=== PATIENT | male | born 1935 | race Caucasian/White ===

== ENCOUNTER 2016-10-30 17:45 | Emergency (ER) | payer MEDICARE, BC ==
[~2016-10-30] VITALS: Ht 170.2 cm; Wt 72.6 kg
[~2016-10-30 17:45] MED LIST: ATOR10TA PO; LOSA1TAB3 PO; METO50TA7 PO; PROP300T2 PO; WARF1TAB47
[2016-10-30] MEDS ORDERED: OXYMETAZOLINE HCL NASAL SPRAY 30 ML BOTTLE NS ONE ×2 (18:11→18:30)
[2016-10-30] MEDS ORDERED: LET SOLN TOPICAL 8 ML UDC TP ONE ×2 (18:36→19:00)
[2016-10-30 19:05] LABS: BASOPHILS # (AUTO) 0.2 /CMM (0.0-0.2); BASOPHILS % (AUTO) 2.9 % (0.0-2.0); DIFF TOTAL % 100 %; EOSINOPHILS % (AUTO) 0.6 % (0.0-6.0); HEMATOCRIT 42 % (39-51); HEMOGLOBIN 13.5 g/dL (13.5-17.5); LYMPHOCYTES # (AUTO) 2.3 /CMM (0.8-4.8); LYMPHOCYTES % (AUTO) 30.1 % (20.0-44.0); MEAN CORPUSCULAR HEMOGLOBIN 30 PG (26.0-33.0); MEAN CORPUSCULAR HGB CONC 32 g/dl (31.0-36.0); MEAN CORPUSCULAR VOLUME 93 fL (80-96); MONOCYTES # (AUTO) 0.8 /CMM (0.1-1.30); MONOCYTES % (AUTO) 10.4 % (2.0-12.0); NEUTROPHILS # (AUTO) 4.2 /CMM (1.8-8.9); PLATELET COUNT (AUTO) 72 /CMM (150-450); RED BLOOD CELL COUNT(AUTO) 4.52 MIL/uL (4.5-6.0); WHITE BLOOD COUNT (AUTO) 7.5 K/uL (4.3-11.0)
[2016-10-30 19:14] LABS: CALCIUM, SERUM 8.8 mg/dL (8.5-10.1); CREATININE 0.9 mg/dL (0.6-1.3); POTASSIUM 4.9 mmol/L (3.5-5.1)
[2016-10-30 19:18] LABS: INR 1.09 (0.87-1.13); PROTHROMBIN TIME 11.4 SECS (9.5-12.7)
[2016-10-30 20:11] VITALS: BP 139/64
[2016-10-30] MEDS ORDERED: AMOX/CLAVULANATE 875 MG TABLET PO ONE (20:30)
== END 2016-10-30 20:12 | disposition home or self-care (01) ==
LOC: ER 17:46 → MERGE 17:46 → ER 20:12
DX: R04.0 Epistaxis (principal); Z79.01 Long term (current) use of anticoagulants
CPT/HCPCS: 30901; 36415; 80048; 85025; 85730; 86850; 99284; A4606; A6402; A6403 ×2; Z7610

== ENCOUNTER 2016-10-31 07:50 | Emergency (ER) | payer MEDICARE, BC ==
[~2016-10-31] VITALS: Ht 170.2 cm; Wt 73.9 kg
[2016-10-31 07:50] VITALS: BP 124/99
== END 2016-10-31 08:53 | disposition home or self-care (01) ==
LOC: ER 07:52
DX: R04.0 Epistaxis (principal); I10 Essential (primary) hypertension; Z79.01 Long term (current) use of anticoagulants
CPT/HCPCS: 99281; A4606; Z7502; Z7610

== ENCOUNTER 2016-11-02 10:22 | Emergency (ER) | payer MEDICARE, BC ==
[~2016-11-02] VITALS: Ht 165.1 cm; Wt 77.1 kg
[2016-11-02 10:27] VITALS: BP 126/71
== END 2016-11-02 10:50 | disposition home or self-care (01) ==
LOC: ER 10:25
DX: R04.0 Epistaxis (principal); I10 Essential (primary) hypertension; Z79.01 Long term (current) use of anticoagulants
CPT/HCPCS: 99281; A4606; Z7502; Z7610

== ENCOUNTER 2016-11-16 10:25 | Emergency (ER) | payer MEDICARE, BC ==
[~2016-11-16] VITALS: Ht 170.2 cm; Wt 72.6 kg
[2016-11-16] MEDS ORDERED: OXYMETAZOLINE HCL NASAL SPRAY 30 ML BOTTLE NS ONE ×2 (10:47→11:00)
[2016-11-16 10:48] LABS: BASOPHILS % (AUTO) 0.4 % (0.0-2.0); DIFF TOTAL % 100 %; EOSINOPHILS % (AUTO) 0.3 % (0.0-6.0); HEMATOCRIT 38 % (39-51); HEMOGLOBIN 12.6 g/dL (13.5-17.5); LYMPHOCYTES # (AUTO) 1.4 /CMM (0.8-4.8); LYMPHOCYTES % (AUTO) 29.2 % (20.0-44.0); MEAN CORPUSCULAR HEMOGLOBIN 31 PG (26.0-33.0); MEAN CORPUSCULAR HGB CONC 33 g/dl (31.0-36.0); MEAN CORPUSCULAR VOLUME 93 fL (80-96); MONOCYTES # (AUTO) 0.4 /CMM (0.1-1.30); MONOCYTES % (AUTO) 8.4 % (2.0-12.0); NEUTROPHILS # (AUTO) 2.9 /CMM (1.8-8.9); NEUTROPHILS % (AUTO) 61.7 % (43.0-81.0); PLATELET COUNT (AUTO) 109 /CMM (150-450); RED BLOOD CELL COUNT(AUTO) 4.07 MIL/uL (4.5-6.0); WHITE BLOOD COUNT (AUTO) 4.7 K/uL (4.3-11.0)
[2016-11-16 10:56] LABS: CALCIUM, SERUM 8.7 mg/dL (8.5-10.1); CREATININE 0.9 mg/dL (0.6-1.3); POTASSIUM 3.9 mmol/L (3.5-5.1)
[2016-11-16 11:03] LABS: INR 1.82 (0.87-1.13); PROTHROMBIN TIME 19.1 SECS (9.5-12.7)
[2016-11-16 11:54] VITALS: BP 120/89
== END 2016-11-16 11:55 | disposition home or self-care (01) ==
LOC: ER 10:26
DX: R04.0 Epistaxis (principal); I10 Essential (primary) hypertension; Z79.01 Long term (current) use of anticoagulants
CPT/HCPCS: 36415; 80048; 85025; 85730; 99284; A4606; A6403; Z7610

== ENCOUNTER 2017-12-15 14:41 | Emergency (ER) | payer MEDICARE, BC ==
[~2017-12-15] VITALS: Ht 172.7 cm; Wt 74.8 kg
--- NOTE | 2017-12-15 14:50 | NUR ---
PADMARA 878 FROM HOME FOR ACTIVE EPISTAXIS X TODAY. ON COUMADIN, SOFT CLAMPS APPLIED TO NOSE. A/OX 4, BREATHING EVEN AND UNLABORED. NO SOB, NAD, VITALS STABLE. SAFETY AND COMFORT MEASURES IN PLACE. AWAITING MD ORDERS.
--- NOTE | 2017-12-15 15:12 | NUR ---
RETAIL CASHIER ASSOCIATE AT BEDSIDE FOR BLOOD DRAW.
[2017-12-15 15:20] LABS: BASOPHILS # (AUTO) 0.1 /CMM (0.0-0.2); BASOPHILS % (AUTO) 1.3 % (0.0-2.0); EOSINOPHILS % (AUTO) 0.3 % (0.0-6.0); HEMATOCRIT 39 % (39-51); LYMPHOCYTES # (AUTO) 1.9 /CMM (0.8-4.8); LYMPHOCYTES % (AUTO) 19.8 % (20.0-44.0); MEAN CORPUSCULAR HGB CONC 34 g/dl (31.0-36.0); MEAN CORPUSCULAR VOLUME 93 fL (80-96); MONOCYTES % (AUTO) 10.5 % (2.0-12.0); NEUTROPHILS # (AUTO) 6.8 /CMM (1.8-8.9); NEUTROPHILS % (AUTO) 68.1 % (43.0-81.0); PLATELET COUNT (AUTO) 75 /CMM (150-450); RDW COEFFICIENT OF VARIATION 13.3 (11.5-15.0); RED BLOOD CELL COUNT(AUTO) 4.19 MIL/uL (4.5-6.0); WHITE BLOOD COUNT (AUTO) 9.8 K/uL (4.3-11.0)
[2017-12-15 15:30] LABS: INR 2.17 (0.85-1.15)
--- NOTE | 2017-12-15 15:46 | NUR ---
DR. OCAMPO AT BEDSIDE, INSERTED RHINO ROCKET IN RIGHT NARE. PATIENT TOLERATED WELL, VSS. WILL MONITOR.
[2017-12-15 16:53] VITALS: BP 112/64
--- NOTE | 2017-12-15 16:55 | NUR ---
No bleeding noted since placed rhino rocket by . Patient discharged to home in stable condition. Written and verbal after care instructions given. Patient verbalizes understanding of instruction. Patient left via taxi.
== END 2017-12-15 16:54 | disposition home or self-care (01) ==
LOC: ER 14:42
DX: R04.0 Epistaxis (principal); E78.5 Hyperlipidemia, unspecified; I10 Essential (primary) hypertension; I48.91 Unspecified atrial fibrillation; Z79.01 Long term (current) use of anticoagulants; Z96.641 Presence of right artificial hip joint
CPT/HCPCS: 30901; 36415; 85025; 85730; 99284; A4217 ×2; A4606; A6403; Z7610

== ENCOUNTER 2017-12-16 11:36 | Emergency (ER) | payer MEDICARE, BC ==
[~2017-12-16] VITALS: Ht 167.6 cm; Wt 75.7 kg
[2017-12-16 11:36] VITALS: BP 127/73
== END 2017-12-16 12:08 | disposition home or self-care (01) ==
LOC: ER 11:37
DX: R04.0 Epistaxis (principal); I10 Essential (primary) hypertension; Z79.01 Long term (current) use of anticoagulants; Z96.641 Presence of right artificial hip joint
CPT/HCPCS: 99281; A4606; Z7502; Z7610

== ENCOUNTER 2017-12-17 07:55 | Emergency (ER) | payer MEDICARE, BC ==
[~2017-12-17] VITALS: Ht 170.2 cm; Wt 74.8 kg
[2017-12-17 08:12] VITALS: BP 130/85
== END 2017-12-17 08:21 | disposition home or self-care (01) ==
LOC: ER 07:57
DX: R04.0 Epistaxis (principal); I10 Essential (primary) hypertension; Z96.641 Presence of right artificial hip joint; Z79.01 Long term (current) use of anticoagulants
CPT/HCPCS: A4606; Z7502; Z7610

== ENCOUNTER → 2018-09-05 | Emergency (ER) | payer MEDICARE, BC ==
[~2018-09-05] VITALS: Ht 170.2 cm; Wt 72.6 kg
[~2018-09-05] MED LIST changes: +LORAZEPAM 1 MG TABLET ONE; +LORAZEPAM 1 MG TABLET PO ONE
--- NOTE | 2018-09-05 14:24 | NUR ---
PT WALKED INTO EMERGENCY ROOM FOR LEFT THUMB AND INDEX FINGER DISCOMFORT X 10 DAYS
[2018-09-05 14:57] LABS: CALCIUM, SERUM 9.2 mg/dL (8.5-10.1); CARBON DIOXIDE 27 mmol/L (21-32); CHLORIDE 101 mmol/L (98-107); GLUCOSE 126 mg/dL (74-106); POTASSIUM 4.5 mmol/L (3.5-5.1); SODIUM SERUM 138 mmol/L (136-145); UREA NITROGEN, BLOOD 25 mg/dL (7-18)
[2018-09-05 15:02] LABS: BASOPHILS # (AUTO) 0.1 /CMM (0.0-0.2); BASOPHILS % (AUTO) 0.8 % (0.0-2.0); EOSINOPHILS % (AUTO) 0.3 % (0.0-6.0); HEMATOCRIT 44 % (39-51); HEMOGLOBIN 14.8 g/dL (13.5-17.5); LYMPHOCYTES # (AUTO) 2.3 /CMM (0.8-4.8); LYMPHOCYTES % (AUTO) 33.2 % (20.0-44.0); MEAN CORPUSCULAR HGB CONC 34 g/dl (31.0-36.0); MEAN CORPUSCULAR VOLUME 93 fL (80-96); MONOCYTES # (AUTO) 0.7 /CMM (0.1-1.30); MONOCYTES % (AUTO) 10.1 % (2.0-12.0); NEUTROPHILS # (AUTO) 3.8 /CMM (1.8-8.9); NEUTROPHILS % (AUTO) 55.6 % (43.0-81.0); PLATELET COUNT (AUTO) 112 /CMM (150-450); RED BLOOD CELL COUNT(AUTO) 4.76 MIL/uL (4.5-6.0); WHITE BLOOD COUNT (AUTO) 6.9 K/uL (4.3-11.0)
[2018-09-05 15:51] VITALS: BP 136/87
--- NOTE | 2018-09-05 15:52 | NUR ---
PT DISCHARGED TO HOME PIV REMOVED WILL FOLOW UP WITH PMD
== END | disposition home or self-care (01) ==
LOC: ER 14:12
DX: F41.9 Anxiety disorder, unspecified (principal); I48.91 Unspecified atrial fibrillation; Z79.899 Other long term (current) drug therapy; Z79.01 Long term (current) use of anticoagulants
CPT/HCPCS: 36415; 71045; 80048; 84484; 85025; 93005; 99284; A4606; Z7610

== ENCOUNTER 2020-04-07 20:40 | Inpatient (IN) | payer MEDICARE, BC ==
[~2020-04-07] VITALS: Ht 167.6 cm; Wt 63.5 kg
[~2020-04-07 20:40] MED LIST changes: -LORAZEPAM 1 MG TABLET ONE; -LORAZEPAM 1 MG TABLET PO ONE; +WARF1TAB; -WARF1TAB47
--- NOTE | 2020-04-07 21:39 | NUR ---
PATIENT CAME FROM HOME BIB [facility] FOR LEFT KNEE PAIN. PATIENT DOES NOT KNOW WHEN THE KNEE PAIN OCCURRED, NOR DOES HE KNOW IF HE HAD HIT HIS HEAD. PATIENT IS AWARE OF THE RECENT PASSING OF HIS . PATIENT IS AAOX1. PATIENT IS ABLE TO SPEAK PROPERLY, BUT UNABLE TO RECALL ANY HISTORY OR DATE. BREATHING EVENLY AND UNLABORED ON ROOM AIR.
--- NOTE | 2020-04-07 21:44 | NUR ---
XRAY AT BEDSIDE
[2020-04-07 22:39] LABS: BASOPHILS # (AUTO) 0.1 /CMM (0.0-0.2); BASOPHILS % (AUTO) 0.8 % (0.0-2.0); EOSINOPHILS % (AUTO) 0.2 % (0.0-6.0); HEMATOCRIT 46 % (39-51); HEMOGLOBIN 14.7 g/dL (13.5-17.5); LYMPHOCYTES # (AUTO) 1.6 /CMM (0.8-4.8); LYMPHOCYTES % (AUTO) 14.5 % (20.0-44.0); MEAN CORPUSCULAR HGB CONC 32 g/dl (31.0-36.0); MEAN CORPUSCULAR VOLUME 94 fL (80-96); MONOCYTES # (AUTO) 2.2 /CMM (0.1-1.30); NEUTROPHILS # (AUTO) 6.9 /CMM (1.8-8.9); NEUTROPHILS % (AUTO) 64.5 % (43.0-81.0); PLATELET COUNT (AUTO) 83 /CMM (150-450); RED BLOOD CELL COUNT(AUTO) 4.85 MIL/uL (4.5-6.0); WHITE BLOOD COUNT (AUTO) 10.7 K/uL (4.3-11.0)
[2020-04-07 22:52] LABS: ALANINE AMINOTRANSFERASE 20 U/L (12-78); ALBUMIN 3.7 g/dL (3.4-5.0); ALCOHOL, BLOOD < 3 mg/dL (0-0); ALKALINE PHOSPHATASE 101 U/L (46-116); ASPARTATE AMINOTRANSFERASE 19 U/L (15-37); BILIRUBIN,DIRECT 0.3 mg/dL (0.0-0.2); BILIRUBIN,TOTAL 0.9 mg/dL (0.2-1.0); CALCIUM, SERUM 9.3 mg/dL (8.5-10.1); CARBON DIOXIDE 29 mmol/L (21-32); CHLORIDE 99 mmol/L (98-107); CREATININE 1.1 mg/dL (0.6-1.3); GLUCOSE 124 mg/dL (74-106); POTASSIUM 5.3 mmol/L (3.5-5.1); SODIUM SERUM 135 mmol/L (136-145); TOTAL PROTEIN, SERUM 7.1 g/dL (6.4-8.2); UREA NITROGEN, BLOOD 32 mg/dL (7-18)
--- NOTE | 2020-04-07 22:54 | NUR ---
urine collected and sent to lab.
[2020-04-07] MEDS ORDERED: ACETAMINOPHEN 325 MG TABLET PO ONE (23:00)
[2020-04-07 23:09] LABS: APPEARANCE,URINE Clear (CLEAR); BILIRUBIN,URINE Negative (NEGATIVE); BLOOD, URINE Small Ery/uL (NEGATIVE); COLOR,URINE Yellow (YELLOW); KETONES,URINE Negative (NEGATIVE); LEUKOCYTE ESTERASE ,URINE Negative (NEGATIVE); NITRITE, URINE Negative (NEGATIVE); PROTEIN,URINE 30 mg/dl (NEGATIVE); UGLUCOSE Negative (NEGATIVE); UROBILINOGEN,URINE 0.2 EU/dL (0.2)
[2020-04-07] MEDS ORDERED: ACETAMINOPHEN 325 MG TABLET ONE (23:10)
[2020-04-07 23:34] LABS: BACTERIA,URINE None seen /HPF (None Seen); SQUAMOUS EPITHELIAL CELL,UR Few /HPF (None Seen); WBC,URINE 0-2 /HPF (0-3)
[2020-04-07 23:35] LABS: ACETAMINOPHEN < 2 ug/ml (10-30); SALICYLATE 1.5 mg/dL (2.8-20.0)
[2020-04-07] MEDS ORDERED: LORAZEPAM 1 MG TABLET ONE (23:51)
[2020-04-08] VITALS (7 sets, daily range): BP systolic 112–156; BP diastolic 58–88
[2020-04-08] MEDS ORDERED: LORAZEPAM 1 MG TABLET PO ONE
--- NOTE | 2020-04-08 | NUR ---
JESSI CRISIS MILL STENCILER CALLED. VM LEFT.
--- NOTE | 2020-04-08 00:30 | NUR ---
JESSI CRISIS MECHANICAL OPERATOR CALLED. SONA LEFT
[2020-04-08 01:00] LABS: LYMPHOCYTES % (MANUAL) 15 % (16-48); MONOCYTES % (MANUAL) 19 % (0-11.0); NEUTROPHILS % (MANUAL) 66 (42-76)
[2020-04-08] MEDS ORDERED: ONDANSETRON HCL/PF 4 MG/2 ML VIAL IVP PRN (02:30)
[2020-04-08] MEDS ORDERED: IV NS 0.9% 1,000 ML IV PRN (02:30)
[2020-04-08] MEDS ORDERED: MAGNESIUM HYDROXIDE 30 ML UDC PO PRN ×2 (02:30→06:30)
[2020-04-08] MEDS ORDERED: IBUPROFEN 600 MG TABLET PO PRN (02:30)
[2020-04-08] MEDS ORDERED: ZOLPIDEM TARTRATE 5 MG TABLET PO PRN (02:30)
[2020-04-08] MEDS ORDERED: ACETAMINOPHEN 325 MG TABLET PO PRN ×2 (02:30→06:30)
--- NOTE | 2020-04-08 02:45 | NUR ---
PT INCREASINGLY CONFUSED. ATTEMPTING TO REDIRECT PATIENT.
[2020-04-08] MEDS ORDERED: diphenhydrAMINE HCL 50 MG CAPSULE ONE (02:53)
[2020-04-08] MEDS ORDERED: diphenhydrAMINE HCL 25 MG CAPSULE PO ONE (03:00)
--- NOTE | 2020-04-08 03:01 | NUR ---
CALLED JESSI, FROM CRISIS TEAM FOR PSYCH EVAL
--- NOTE | 2020-04-08 04:11 | NUR ---
JESSI, FROM CRISIS TEAM AT BEDSIDE FOR EVAL
--- NOTE | 2020-04-08 05:46 | NUR ---
REPORT GIVEN TO DEBBIE SIMONS FOR GEOFFREY.
--- NOTE | 2020-04-08 06:15 | NUR ---
GPS RN-NOTE:ADMISSION ADMITTED AN 79-YR OLD MALE, CAME FROM HOME. ADMITTED ON 5150 FOR GD. PER HOLD, PT CAME TO ER C/O KNEE PAIN INITIALLY. PT IS INCREASINGLY CONFUSED, DISORIENTED AND UNABLE TO SAFELY BE DISCHARGE HOME. PT. STATED "I LIVE IN MY APARTMENT WITH A SQUIRREL. PT IS DISORIENTED X3 AND IS NOT ABLE TO STATE A SAFE PLAN OF CARE IF HE IS DISCHARGE HOME AT THIS TIME. UPON FACE TO FACE ASSESSMENT, PT PRESENTS A/OX1-2, CONFUSED, FORGETFUL, ANXIOUS, EASILY GETS AGITATED. PT WAS ADVISED OF HIS HOLD. PT'S RIGHTS HANDBOOK AND A GUIDE TO PRESCRIPTION MEDICATIONS GIVEN. IN NO APPARENT DISTRESS NOTED. BELONGINGS WERE INVENTORIED AND CHECKED FOR CONTRABAND. PT. IS UNDER THE PSYCHIATRIC CARE OF DR. AYALA ORDERS OBTAINED, AND UNDER THE MEDICAL CARE OF DESIREE GALE. SKIN BODY ASSESSMENT DONE. PATIENT C/O LEFT KNEE PAIN BUT UNABLE TO SCALE PAIN LEVEL. BED LOCKED AND PLACED IN LOWEST POSITION TO MAINTAIN SAFETY. FALL PRECAUTIONS IMPLEMENTED. WILL CONTINUE TO MONITOR Q15 MINS. FOR SAFETY AND BEHAVIOR.
--- NOTE | 2020-04-08 06:16 | NUR ---
PATIENT IS TAKEN TO ASSIGNED ROOM.
[2020-04-08] MEDS ORDERED: MAG HYDROX/AL HYDROX/SIMETH 30 ML UDC PO PRN (06:30)
[2020-04-08] MEDS ORDERED: LORAZEPAM 0.5 MG TABLET PO PRN ×2 (06:30→12:30)
[2020-04-08] MEDS ORDERED: TEMAZEPAM 7.5 MG CAPSULE PO PRN (06:30)
[2020-04-08] MEDS ORDERED: BLOOD SUGAR DIAGNOSTIC 1 EACH STRIP IN ONE (06:30)
--- NOTE | 2020-04-08 06:46 | NUR ---
GPS RN NOTE PATIENT HAD 4800 DOLLARS TURK WITH HIM UPON ADMISSION. PATIENT SEEMS DISORGANIZED AT THIS TIME, STATED," I HAVE 400 DOLLARS, CAN YOU TAKE CARE OF IT." MONEY WAS COUNTED BY GAME FARM SUPERVISOR IN FRONT OF THE PATIENT & SEALED IT IN THE BAG, WITNESSED BY RN & MONEY BAG WAS PLACED IN NURSING OFFICE SAFE BY THE DEVELOPMENTAL MATHEMATICS INSTRUCTOR. PATIENT'S WALLET & KEYS WERE ALSO PUT IN THE SAME BAG. PATIENT MADE AWARE.
--- NOTE | 2020-04-08 07:25 | NUR ---
RN NOTE- PT W PAIN LEFT LEG. TYLENOL 650 MG GIVEN. ASSISTED PT TO BR TO VOID. WEAK UNSTEADY GAIT. PT CONSULT PENDING
[2020-04-08] MEDS: ENOXAPARIN SODIUM 40 MG/0.4 ML DISP.SYRIN SQ SCH (08:38)
--- NOTE | 2020-04-08 09:00 | NUR ---
PT IN ROOM ALERT CONFUSED DISORGANIZED DENIES ALL THOUGH TOO CONFUSED TO BE RELIABLE NEEDS ATTENDED UNSTEADY ON FEET ASSISTED TO BR LABS REVIEWED K HIGH, NA LOW IV FLUIDS ORDERED SKIN WOUND ON NOSE CONSULT ORDERED PO INTAKE GOOD CALM DIRECTABLE ATTEMPTED TO CONTACT FAMILY ON FACE SHEET BUT NO ONE ANSWERED AND NO VM SET UP
--- NOTE | 2020-04-08 09:15 | NUR ---
RN NOTE- SHELL MACHINE OPERATOR STARTED HEP LOCK RFA W 24 G . IV SITE PATENT. 1000 ML NS INFUSING AT THIS TIME 75/HR
--- NOTE | 2020-04-08 10:39 | NUR ---
RN NOTE- ANXIETY RESTLESSNESS ATIVAN 0.5 MG GIVEN
[2020-04-08] MEDS ORDERED: SODIUM POLYSTYRENE SULF. PWD 15 GM UDC PO ONE (11:00)
--- NOTE | 2020-04-08 11:27 | NUR ---
Social Work Initial Discharge Plan: Patient currently resides at [id number] [place] [address] Dr Hinojosa [address] [place] [id number]; ([phone]). This junior technical writer attempted to contact patient's Rhiannon ([phone]) but was unable to get a hold of. Patient might require a SNF. This junior technical writer will work with the MD and the family to help coordinate a proper discharge plan.
--- NOTE | 2020-04-08 11:27 | NUR ---
Social Work Family Contact: This script writer attempted to contact patient's Rhiannon ([phone]) and was unable to reach and did not have a voicemail set up.
[2020-04-08] MEDS ORDERED: OLANZAPINE 10 MG VIAL IM ONE ×3 (11:30→14:00)
--- NOTE | 2020-04-08 11:30 | NUR ---
RN NOTE- PT AGGRESSIVE SCREAMING COMBATIVE W DR AYALA PRESENT. ZYPREXA 5 MG IM ORDERED. COMPLIED
[2020-04-08] MEDS ORDERED: SODIUM POLYSTYRENE SULFONATE 15 G/60 ML BOTTLE PO ONE (12:00)
[2020-04-08] MEDS ORDERED: ONDANSETRON 4 MG TAB.RAPDIS PO PRN (13:00)
--- NOTE | 2020-04-08 14:00 | NUR ---
RN NOTE- IV CONTINUES TO INFUSE. PT AGGRESSIVE COMBATIVE YELLING BANGING ON CHAIR. DR AYALA ORDERED ZYPREXA 5 MG IM X ONE DOSE NOW . COMPLIED
[2020-04-08] MEDS: LORAZEPAM 1 MG TABLET PO PRN (14:58)
--- NOTE | 2020-04-08 15:01 | NUR ---
RN NOTE- RESTLESS PULLING AT IV YELLING CONINUES. ATIVAN 1 MG GIVEN
--- NOTE | 2020-04-08 15:25 | NUR ---
RN NOTE- IV INFILTRATED. IV FLUIDS STOPPED. COMPRESS PLACED ON RFA SITE. NEW HEP LOCK PLACED 24G LFA ONE TRY/ IV FLUIDS CONTINUE TO INFUSE AT 75ML/HR
[2020-04-08] MEDS: OLANZAPINE 5 MG TABLET PO SCH (17:00)
--- NOTE | 2020-04-08 18:35 | NUR ---
RN NOTE- CHANGING PT W SOLAR PROJECT COORDINATION SPECIALIST AND NOTED TESTICLES W ERYTHEMA AND SOME MACERATED SKIN. CLEANSED W SOAP AND WATER ZGUARD APPLIED. DIAPER IN PLACE. WOUND CARE CONSULT ORDERED. PHOTO TAKEN FOR CHART
--- NOTE | 2020-04-08 19:15 | NUR ---
GPS-RN NOTE: PATIENT IN BED ASLEEP. AROUSES EASILY. A/OX1-2, NO ACUTE DISTRESS NOTED. PATIENT REMAINS CONFUSED, FORGETFUL. CURRENTLY ON IV FLUIDS @75CC INFUSING WELL. IV SITE ON LEFT FOREARM GAUGE #24 PATENT AND INTACT. NO REDNESS, NO INFILTRATION NOTED. SAFETY PRECAUTIONS IMPLEMENTED. WILL CONTINUE TO MONITOR Q15MIN ROUNDS FOR SAFETY AND BEHAVIOR.
[2020-04-09] MEDS: Z GUARD REMEDY 2 OZ OINT TP PRN ×2 (00:52→18:16)
--- NOTE | 2020-04-09 07:20 | NUR ---
GPS-RN NOTE: PATIENT REFUSED AM LABS. DESPITE OF EDUCATION PROVIDED. PATIENT STILL REFUSED X3. ENDORSED TO DAY SHIFT NURSE FOR CONTINUITY OF CARE.
[2020-04-09] MEDS: ENOXAPARIN SODIUM 40 MG/0.4 ML DISP.SYRIN SQ SCH (09:00)
[2020-04-09] MEDS: OLANZAPINE 5 MG TABLET PO SCH ×3 (09:50→17:00)
[2020-04-09] MEDS: LORAZEPAM 1 MG TABLET PO PRN (09:50)
--- NOTE | 2020-04-09 09:50 | NUR ---
given ativan for agitation.
--- NOTE | 2020-04-09 10:39 | NUR ---
WOUND CARE CONSULT: PT PRESENTS WITH DRY LESION TO SIDE OF NOSE AND RED RASH TO PERINEUM AND SCROTAL AREA, PRESENT ON ADMISSION. DEFER TO PMD FOR LESION. RECOMMENDATIONS MADE FOR RASH AND SKIN PROTECTION. DISCUSSED WITH NURSING STAFF. PT IS AMBULATORY. WILL SEE PRN. DORSEY IN AGREEMENT WITH PLAN OF CARE. Addendum: 04/09/20 at 1041 by ZA YEE WNDNU Amended: Links added.
[2020-04-09] MEDS: HYDROCODONE/APAP 5/325MG 1 EACH TABLET PO PRN ×2 (11:43→22:59)
--- NOTE | 2020-04-09 11:52 | NUR ---
amb. to bathrm.c/o pain given norco.
--- NOTE | 2020-04-09 12:00 | NUR ---
dr. vences in and awre a little agitated earlier.
--- NOTE | 2020-04-09 12:07 | NUR ---
JL Coordination of Care: JL faxed patient's referral packet to Michaelle at [facility] (ph:[phone] [phone]) and awaiting for review and possible placement.
[2020-04-09] MEDS ORDERED: DIVALPROEX SODIUM 125 MG CAP.SPRINK PO SCH (13:00)
--- NOTE | 2020-04-09 13:00 | NUR ---
new zyprexa added.
--- NOTE | 2020-04-09 13:55 | NUR ---
JL Coordination of Care: Faxed patient's referral packet to [facility] ( ) attention to Faith admin coordinator for review and possible placement.
[2020-04-09] MEDS ORDERED: OLANZAPINE 5 MG TABLET PO SCH (14:00)
[2020-04-09] MEDS ORDERED: HALOPERIDOL LACTATE INJ 5 MG/ML VIAL IM STA (14:02)
[2020-04-09] MEDS ORDERED: LORAZEPAM INJ 2 MG/ML VIAL IM STA (14:02)
[2020-04-09] MEDS ORDERED: diphenhydrAMINE HCL 50 MG/ML VIAL IM STA (14:02)
--- NOTE | 2020-04-09 14:10 | NUR ---
a few prns given to pt. in attempt to quiet pt,but to no avail.
--- NOTE | 2020-04-09 14:15 | NUR ---
dr. vences called as pt. becoming unruly and yelling out. orders received.given haldol 5 mg,ativan 1mg and benadryl 25 mg im.
--- NOTE | 2020-04-09 15:30 | NUR ---
SLEEPING AT THIS TIME,APPEARS COMFORTABLE.
[2020-04-09 15:45] LABS: BASOPHILS % (AUTO) 0.5 % (0.0-2.0); EOSINOPHILS % (AUTO) 0.2 % (0.0-6.0); HEMATOCRIT 41 % (39-51); HEMOGLOBIN 13.1 g/dL (13.5-17.5); LYMPHOCYTES # (AUTO) 1.1 /CMM (0.8-4.8); LYMPHOCYTES % (AUTO) 13.5 % (20.0-44.0); MEAN CORPUSCULAR HGB CONC 32 g/dl (31.0-36.0); MEAN CORPUSCULAR VOLUME 94 fL (80-96); MONOCYTES # (AUTO) 1.7 /CMM (0.1-1.30); MONOCYTES % (AUTO) 21.8 % (2.0-12.0); NEUTROPHILS # (AUTO) 5.1 /CMM (1.8-8.9); PLATELET COUNT (AUTO) 82 /CMM (150-450); RED BLOOD CELL COUNT(AUTO) 4.36 MIL/uL (4.5-6.0); WHITE BLOOD COUNT (AUTO) 7.9 K/uL (4.3-11.0)
--- NOTE | 2020-04-09 15:51 | NUR ---
Initial Discharge Plan: Pt currently resides in his apartment alone located at [id number] [place] [address], [address], [place] [address]; ([phone]). Per pt, he would like to go back to his home. JL will work with the pt and the MD regarding appropriate discharge planning. JL will form a safe and proper discharge plan. Addendum: 04/09/20 at 1557 by SRINATH PARIKH INSERTED NOTE IN ERROR.
--- NOTE | 2020-04-09 15:54 | NUR ---
Friend Contact: JL called the pts neighbor, Juanita ([phone]), and discussed that the pt will need placement as it is not safe for him to live on his own.
[2020-04-09 16:00] VITALS: BP 106/54
[2020-04-09 16:01] LABS: CALCIUM, SERUM 8.7 mg/dL (8.5-10.1); CREATININE 0.9 mg/dL (0.6-1.3); MAGNESIUM 2.2 mg/dL (1.8-2.4); PHOSPHORUS 2.7 mg/dL (2.5-4.9); POTASSIUM 3.9 mmol/L (3.5-5.1)
[2020-04-09 16:47] LABS: LYMPHOCYTES % (MANUAL) 18 % (16-48); MONOCYTES % (MANUAL) 16 % (0-11.0); NEUTROPHILS % (MANUAL) 66 (42-76)
[2020-04-09] MEDS: CLOTRIMAZOLE 1% 15 GM TUBE TP SCH (18:16)
--- NOTE | 2020-04-09 18:40 | NUR ---
SLEEPING ALL AFTERNOON,MONICA.MEDS HELD DUE TO DROWSINESS.
[2020-04-09 19:55] VITALS: BP 110/60
[2020-04-10] MEDS: LORAZEPAM 1 MG TABLET PO PRN (07:44)
[2020-04-10] MEDS: OLANZAPINE 5 MG TABLET PO SCH (07:44)
[2020-04-10] MEDS: CLOTRIMAZOLE 1% 15 GM TUBE TP SCH ×2 (07:45→17:38)
[2020-04-10] MEDS: HYDROCODONE/APAP 5/325MG 1 EACH TABLET PO PRN (07:45)
[2020-04-10 08:00] VITALS: BP 158/89
--- NOTE | 2020-04-10 08:22 | NUR ---
yelling out,confused.medicated with routine meds,ativan and norco.
--- NOTE | 2020-04-10 08:45 | NUR ---
placed in marcos chair and in day rm.
[2020-04-10] MEDS: Z GUARD REMEDY 2 OZ OINT TP PRN (08:50)
[2020-04-10] MEDS: ENOXAPARIN SODIUM 40 MG/0.4 ML DISP.SYRIN SQ SCH (08:57)
--- NOTE | 2020-04-10 09:30 | NUR ---
lester olson informed of low platelet count.lovenox held.
--- NOTE | 2020-04-10 11:22 | NUR ---
dr. vences here and aware of pt's behavior.
[2020-04-10] MEDS ORDERED: OLANZAPINE 5 MG TABLET PO SCH (13:00)
[2020-04-10] MEDS: HALOPERIDOL 5 MG TABLET PO SCH ×2 (13:50→17:15)
[2020-04-10] MEDS: OLANZAPINE 2.5 MG TABLET PO SCH ×2 (13:50→17:15)
--- NOTE | 2020-04-10 15:06 | NUR ---
Group Note: SW encouraged the pt to attend group therapy on 04/10/20 on the topic of discharge planning. Pt appeared to be verbally aggressive and has required multiple IM shots and is therefore not appropriate for group at this time.
--- NOTE | 2020-04-10 15:22 | NUR ---
IN DINING RM. IN DIANE CHAIR,VERY GROGGY AFTER NEW MEDS.
[2020-04-10 16:00] VITALS: BP 121/57
--- NOTE | 2020-04-10 17:04 | NUR ---
RECEIVED CALL FROM [facility]. PT. POSITIVE FOR MRSA RT., NARES.BACTROBAN ORDERED.
--- NOTE | 2020-04-10 19:16 | NUR ---
RESP. TX. HERE TO DO EKG.DEPT. CALLED SEVERAL TIMES ABOUT EKG ORDER.WILL ENDORSE INFO TO EVE. SIMONS.
[2020-04-10 19:42] VITALS: BP 131/92
--- NOTE | 2020-04-10 20:54 | NUR ---
GPS RN NOTE: RECEIVED INSTRUCTION FROM DR AYALA AT 2034 TO DC ZYPREXA 2.5MG TID AND HALDOL 2.5MG TID. BOTH MEDICATIONS HAVE BEEN DISCONTINUED INSTRUCTED.
[2020-04-10] MEDS ORDERED: MUPIROCIN OINT 2% 22 GM TUBE NS SCH (21:00)
--- NOTE | 2020-04-10 23:16 | NUR ---
GPS RN NOTE; AT 2230 PT WAS DISCHARGED FROM GPS AND TRANSFERRED TO TELE PER ALONSO LESLIE'S ORDER, THIS IS BECAUSE PT EKG SHOWED A-FIB. AN INITIAL EKG RESULT SHOWED A-FIB, A SECOND EKG WAS ORDERED BUT ALSO CAME OUT WITH THE SAME RESULT SO ALONSO LESLIE ASKED FOR THE PT TO BE TRANSFERRED TO TELE. PT WAS A/O X1-2, DISORGANIZED, RESTLESS, PARANOID, AND EASILY IRRITABLE. V/S AT THE TIME OF TRANSFER WAS BP120/70, P116, T98.1, R19, O2 97%. PT PSYCH MEDS WERE DISCONTINUED ORDERED BY DR AYALA BEFORE TRANSFER AND MEDICAL MEDICATIONS CONTINUED ORDERED BY ALONSO LESLIE. DR AYALA ORDERED THAT PT HOLD SHOULD BE CONTINUED. ALL PT BELONGINGS FROM HIS ROOM AND SAFE, 5250 HOLD WERE TRANSFERRED WITH PT AND RECEIVED BY TELE STAFF.
--- NOTE | 2020-04-11 10:46 | NUR ---
Friend Contact: JL spoke with the pts neighbor, Juanita ([phone]) and discussed discharge planning and informed of the placement set for the patient upon discharge to [facility] in [place]. Juanita was pleased to hear about this and was thankful. Juanita also stated that she will do laundry for the patient and provide clothing for him when he arrives at [facility].
== END 2020-04-10 22:17 | disposition short-term general hospital (02) | DRG 885 ==
LOC: ER 20:41 → GPS 04-08 05:32
PROVIDERS: ADMIT Psychiatry & Neurology Psychosomatic Medicine
DX: F29 Unspecified psychosis not due to a substance or known physiological condition (principal); F01.50 Vascular dementia, unspecified severity, without behavioral disturbance, psychotic disturbance, mood disturbance, and anxiety; I10 Essential (primary) hypertension; M17.12 Unilateral primary osteoarthritis, left knee; Z79.01 Long term (current) use of anticoagulants; L98.8 Other specified disorders of the skin and subcutaneous tissue; R22.9 Localized swelling, mass and lump, unspecified; D69.6 Thrombocytopenia, unspecified; E87.5 Hyperkalemia; J34.0 Abscess, furuncle and carbuncle of nose
CPT/HCPCS: 36415; 70450-TC; 73564-TC; 80048-TC; 80061-TC; 80076-TC; 80305; 81000-TC; 82962-TC; 83735-TC; 84100-TC; 85025-TC; 87081-TC; 97116-TC; 97530-TC; A6253; G0480; J1200; J1630; J1650; J2060; J2405; J3490; J7030; Q0163

== ENCOUNTER 2020-04-10 22:43 | Inpatient (IN) | payer MEDICARE, BC ==
[~2020-04-10] VITALS: Ht 172.7 cm; Wt 77.1 kg
[2020-04-10 10:30] VITALS: BP 117/98
--- NOTE | 2020-04-10 22:30 | NUR ---
DIRECTOR OF CATERINGCRITICAL CARE NURSE NOTE: Received report from GPS RN, Rekha. Received patient in the unit at 2230. Patient breathing well on room air. No signs of distress. No SOB. Breathing equal and unlabored. Noted mass on nose. Patient has no IV access. Inserted IV access 22g on right AC. Noted elevated heart rate. Patient on 1:1. Safety precaution in place. Bed in lowest position, bed are locked, side rails x2 are up, and call light is within reach. Will continue care of plan.
[2020-04-10] MEDS ORDERED: ZOLPIDEM TARTRATE 5 MG TABLET PO PRN (23:00)
[2020-04-10] MEDS ORDERED: MAGNESIUM HYDROXIDE 30 ML UDC PO PRN (23:00)
[2020-04-10] MEDS ORDERED: MAG HYDROX/AL HYDROX/SIMETH 30 ML UDC PO PRN (23:00)
[2020-04-10] MEDS ORDERED: DILTIAZEM HCL 25 MG IV IV ONE (23:00)
[2020-04-10] MEDS ORDERED: HYDROCODONE/APAP 5/325MG 1 EACH TABLET PO PRN (23:00)
[2020-04-10] MEDS ORDERED: ACETAMINOPHEN 325 MG TABLET PO PRN (23:00)
[2020-04-10] MEDS ORDERED: ONDANSETRON HCL/PF 4 MG/2 ML VIAL IVP PRN (23:00)
[2020-04-10] MEDS ORDERED: Z GUARD REMEDY 2 OZ OINT TP PRN (23:00)
[2020-04-10 23:57] LABS: CALCIUM, SERUM 8.8 mg/dL (8.5-10.1); CREATININE 0.9 mg/dL (0.6-1.3); POTASSIUM 4.2 mmol/L (3.5-5.1)
[2020-04-11 00:11] LABS: BASOPHILS % (AUTO) 0.4 % (0.0-2.0); BILIRUBIN,TOTAL 1.3 mg/dL (0.2-1.0); EOSINOPHILS % (AUTO) 0.1 % (0.0-6.0); HEMATOCRIT 44 % (39-51); HEMOGLOBIN 14.3 g/dL (13.5-17.5); LYMPHOCYTES # (AUTO) 0.8 /CMM (0.8-4.8); LYMPHOCYTES % (AUTO) 8.2 % (20.0-44.0); MEAN CORPUSCULAR HGB CONC 33 g/dl (31.0-36.0); MEAN CORPUSCULAR VOLUME 93 fL (80-96); MONOCYTES # (AUTO) 2.5 /CMM (0.1-1.30); MONOCYTES % (AUTO) 26.8 % (2.0-12.0); NEUTROPHILS % (AUTO) 64.5 % (43.0-81.0); PLATELET COUNT (AUTO) 97 /CMM (150-450); RED BLOOD CELL COUNT(AUTO) 4.74 MIL/uL (4.5-6.0); TOTAL PROTEIN, SERUM 6.5 g/dL (6.4-8.2); WHITE BLOOD COUNT (AUTO) 9.3 K/uL (4.3-11.0)
[2020-04-11 00:42] LABS: LYMPHOCYTES % (MANUAL) 14 % (16-48); MONOCYTES % (MANUAL) 21 % (0-11.0); NEUTROPHILS % (MANUAL) 65 (42-76)
--- NOTE | 2020-04-11 01:27 | NUR ---
PARK KEEPER NOTE: Patient requested sleeping medication but refused when I was about to administer it.
--- NOTE | 2020-04-11 01:34 | NUR ---
ELECTRONICS TECHNOLOGY INSTRUCTOR NOTE: Patient heart rate fluctuating from 120-140 bpm. Notified Amy DORSEY. ordered Cardizem 10mg IV x1. Read back order and carried out.
[2020-04-11 01:56] VITALS: BP 131/83
[2020-04-11] MEDS ORDERED: DILTIAZEM HCL 25 MG IV IV ONE (02:00)
--- NOTE | 2020-04-11 02:01 | NUR ---
SUPERVISOR FISHING NOTE: Patient BP 131/83, HR 125. Notified MD. Administered Cardizem per MD order. Will continue to monitor.
--- NOTE | 2020-04-11 06:30 | NUR ---
MS RN CLOSING NOTE: Patient in bed awake and alert. He shows signs of confusion. Patient breathing well on room air. No signs of distress. No SOB. Breathing equal and unlabored. Patient denies pain or discomfort. Patient on 1:1. Safety precaution in place. Bed in lowest position, bed are locked, side rails x2 are up, and call light is within reach. Will endorse to morning nurse.
[2020-04-11 06:32] LABS: BASOPHILS % (AUTO) 0.4 % (0.0-2.0); EOSINOPHILS % (AUTO) 0.1 % (0.0-6.0); HEMATOCRIT 42 % (39-51); HEMOGLOBIN 13.9 g/dL (13.5-17.5); LYMPHOCYTES # (AUTO) 1.4 /CMM (0.8-4.8); MEAN CORPUSCULAR HGB CONC 33 g/dl (31.0-36.0); MEAN CORPUSCULAR VOLUME 93 fL (80-96); MONOCYTES # (AUTO) 2.2 /CMM (0.1-1.30); MONOCYTES % (AUTO) 24.4 % (2.0-12.0); NEUTROPHILS # (AUTO) 5.5 /CMM (1.8-8.9); NEUTROPHILS % (AUTO) 60.1 % (43.0-81.0); PLATELET COUNT (AUTO) 92 /CMM (150-450); RED BLOOD CELL COUNT(AUTO) 4.57 MIL/uL (4.5-6.0); WHITE BLOOD COUNT (AUTO) 9.2 K/uL (4.3-11.0)
[2020-04-11 06:35] LABS: CALCIUM, SERUM 8.9 mg/dL (8.5-10.1); CREATININE 0.9 mg/dL (0.6-1.3); MAGNESIUM 1.8 mg/dL (1.8-2.4); PHOSPHORUS 2.4 mg/dL (2.5-4.9)
--- NOTE | 2020-04-11 07:49 | NUR ---
RN NOTES RECEIVED PATIENT ON BED RESTING COMFORTABLY IN MODERATE HIGH BACK REST, A/O X1. SITTER AT BEDSIDE, IV ACCESS ON RAC #22, PATENT AND INTACT, SAFETY MEASURES IN PLACE, BED IN LOWEST LOCKED POSITION WITH SIDE RAILS UP X2, CALL LIGHT WITHIN REACH. WILL CONTINUE TO MONITOR.
[2020-04-11 08:00] VITALS: BP 120/69
[2020-04-11] MEDS: ASPIRIN 81 MG TAB.CHEW PO SCH (08:18)
[2020-04-11 08:29] LABS: LYMPHOCYTES % (MANUAL) 14 % (16-48); MONOCYTES % (MANUAL) 17 % (0-11.0); NEUTROPHILS % (MANUAL) 69 (42-76)
[2020-04-11] MEDS: DIGOXIN INJ 0.5 MG/2 ML AMPUL IV SCH ×2 (11:42→17:38)
[2020-04-11] MEDS: DILTIAZEM HCL CD 240 MG PO SCH (11:43)
[2020-04-11 12:00] VITALS: BP 128/72
[2020-04-11] MEDS: busPIRone 5 MG TABLET PO SCH ×2 (13:13→16:18)
[2020-04-11] MEDS: GABAPENTIN 100 MG CAPSULE PO SCH ×2 (13:13→16:18)
[2020-04-11 15:51] VITALS: BP 134/81
[2020-04-11] MEDS ORDERED: K PHOS NEUTRAL 250 MG TABLET PO ONE (16:30)
--- NOTE | 2020-04-11 18:42 | NUR ---
RN NOTES PATIENT ON BED RESTING COMFORTABLY IN MODERATE HIGH BACK REST, A/O X1. SITTER AT BEDSIDE, IV ACCESS ON RAC #22, PATENT AND INTACT, REFUSED TELE MONITOR MD JOEL MADE AWARE. SAFETY MEASURES IN PLACE, BED IN LOWEST LOCKED POSITION WITH SIDE RAILS UP X2, CALL LIGHT WITHIN REACH. WILL ENDORSE TO DATA ENTRY OPERATOR NURSE FOR GEOFFREY.
--- NOTE | 2020-04-11 19:05 | NUR ---
MS RN NOTES RECEIVED PT IN BED RESTING WITH SITTER AT BEDSIDE. PT A/O X1. RESPIRATIONS EVEN AND UNLABORED WITH NO S/S OF ACUTE DISTRESS OR SOB NOTED. IV ACCESS ON RAC #22. PT NOTED ON TELE MONITOR SHOWING AFIB. NO COMPLAINTS OF PAIN AT THIS TIME. SAFETY MEASURES IN PLACE, BED IN LOWEST LOCKED POSITION WITH SIDE RAILS UP X2. CALL LIGHT WITHIN REACH. WILL CONTINUE TO MONITOR.
[2020-04-11 20:28] VITALS: BP 119/68
[2020-04-12] VITALS (7 sets, daily range): BP systolic 106–152; BP diastolic 56–89
[2020-04-12] MEDS: DIGOXIN INJ 0.5 MG/2 ML AMPUL IV SCH (00:33)
[2020-04-12 06:42] LABS: CREATININE 0.8 mg/dL (0.6-1.3); MAGNESIUM 2.2 mg/dL (1.8-2.4)
--- NOTE | 2020-04-12 06:54 | NUR ---
MS RN NOTES RECEIVED PT IN BED RESTING WITH SITTER AT BEDSIDE. PT A/O X1. RESPIRATIONS EVEN AND UNLABORED WITH NO S/S OF ACUTE DISTRESS OR SOB NOTED THROUGHOUT SHIFT. IV ACCESS ON RHAND #22 PATENT AND INTACT AND SL. PT KEPT CLEAN, DRY, AND COMFORTABLE. PT NOTED ON TELE MONITOR SHOWING AFIB. NO COMPLAINTS OF PAIN AT THIS TIME. SAFETY MEASURES IN PLACE, BED IN LOWEST LOCKED POSITION WITH SIDE RAILS UP X2. CALL LIGHT WITHIN REACH. WILL ENDORSE TO ONCOMING NURSE FOR GEOFFREY.
--- NOTE | 2020-04-12 07:30 | NUR ---
MS/RN NOTE THE PATIENT IS RECEIVED IN BED. THE PATIENT IS ALERT AND ORIENTED TO SELF. DENIES PAIN. IN ROOM AIR AND DENIES SOB. RESPIRATION REGULAR AND UNLABORED. THE PATIENT IS IN NO APPARENT DISTRESS. RIGHT HAND G 22 PATENT AND SALINE LOCKED. SITTER AT THE BEDSIDE. BED LOW AND LOCKED. SIDE RAILS UP X3. WILL CONTINUE TO MONITOR.
[2020-04-12 08:18] LABS: BASOPHILS % (AUTO) 0.4 % (0.0-2.0); EOSINOPHILS % (AUTO) 0.4 % (0.0-6.0); HEMATOCRIT 41 % (39-51); HEMOGLOBIN 13.2 g/dL (13.5-17.5); LYMPHOCYTES # (AUTO) 1.9 /CMM (0.8-4.8); LYMPHOCYTES % (AUTO) 17.4 % (20.0-44.0); MEAN CORPUSCULAR HGB CONC 32 g/dl (31.0-36.0); MEAN CORPUSCULAR VOLUME 94 fL (80-96); MONOCYTES # (AUTO) 2.1 /CMM (0.1-1.30); MONOCYTES % (AUTO) 19.3 % (2.0-12.0); NEUTROPHILS # (AUTO) 6.9 /CMM (1.8-8.9); NEUTROPHILS % (AUTO) 62.5 % (43.0-81.0); PLATELET COUNT (AUTO) 96 /CMM (150-450); RED BLOOD CELL COUNT(AUTO) 4.37 MIL/uL (4.5-6.0)
[2020-04-12 09:32] LABS: BAND % (MANUAL) 2 % (0.0-5.0); LYMPHOCYTES % (MANUAL) 17 % (16-48); MONOCYTES % (MANUAL) 23 % (0-11.0); NEUTROPHILS % (MANUAL) 58 (42-76)
[2020-04-12] MEDS: GABAPENTIN 100 MG CAPSULE PO SCH ×3 (09:37→17:29)
[2020-04-12] MEDS: ASPIRIN 81 MG TAB.CHEW PO SCH (09:37)
[2020-04-12] MEDS: DILTIAZEM HCL CD 240 MG PO SCH (09:37)
[2020-04-12] MEDS: busPIRone 5 MG TABLET PO SCH ×3 (09:37→17:29)
[2020-04-12] MEDS ORDERED: DIGOXIN 0.25 MG TABLET PO SCH (13:00)
--- NOTE | 2020-04-12 18:55 | NUR ---
MS/RN NOTE PATIENT ALERT AND ORIENTED X2. DENIES PAIN. RESPIRATION REGULAR AND UNLABORED. IN ROOM AIR AND SATURATION IS AT 95%. PATIENT IN NO APPARENT DISTRESS. DISCHARGE EDUCATION PROVIDED TO THE PATIENT AND RECEIVING NURSE MICHI. OV LINE REMOVED WITH NO BLEEDING AT THE SITE. PATIENT REFUSED SKIN ASSESSMENT PICTURES TO BETAKEN DESPITE EXPLAINING RISKS AND BENEFITS MULTIPLE TIMES. PATIENT TAKE TO THE GPS VIA WHEELCHAIR AND IN STABLE CONDITION.
[2020-04-12] MEDS ORDERED: DIGO250T PO (21:29)
[2020-04-12] MEDS ORDERED: ASPI-1152 PO (21:29)
[2020-04-12] MEDS ORDERED: DILT240C88 PO (21:29)
[2020-04-12] MEDS ORDERED: GABA-532 PO (21:30)
[2020-04-12] MEDS ORDERED: HYDR-4384 PO (21:32)
[2020-04-12] MEDS ORDERED: ONDA4TAB5 PO (21:32)
[2020-04-12] MEDS ORDERED: ZOLP5TAB2 PO (21:33)
[2020-04-12] MEDS ORDERED: BUSP5TAB3 PO (21:35)
== END 2020-04-12 18:09 | DRG 309 ==
LOC: MED 22:43 → TELE 22:59 → MED 04-12 07:49
PROVIDERS: ADMIT Nurse Practitioner Acute Care; ATTEND Student in an Organized Health Care Education/Training Program
DX: I48.91 Unspecified atrial fibrillation (principal); E44.0 Moderate protein-calorie malnutrition; L98.498 Non-pressure chronic ulcer of skin of other sites with other specified severity; M17.12 Unilateral primary osteoarthritis, left knee; F29 Unspecified psychosis not due to a substance or known physiological condition; I10 Essential (primary) hypertension; D69.6 Thrombocytopenia, unspecified; E88.09 Other disorders of plasma-protein metabolism, not elsewhere classified; Z68.25 Body mass index [BMI] 25.0-25.9, adult; L98.8 Other specified disorders of the skin and subcutaneous tissue; F01.50 Vascular dementia, unspecified severity, without behavioral disturbance, psychotic disturbance, mood disturbance, and anxiety
CPT/HCPCS: 36415; 71045-TC; 80048-TC; 80053-TC; 80061-TC; 83605-TC; 83735-TC; 84100-TC; 84484-TC; 85025-TC; G0378; J1160; J3490

== ENCOUNTER 2020-04-12 20:20 | Inpatient (IN) | payer MEDICARE, BC ==
[~2020-04-12] VITALS: Ht 170.2 cm; Wt 77.1 kg
--- NOTE | 2020-04-12 20:22 | NUR ---
GPS ADMISSION NOTE: RECEIVED PT. FROM [facility]. ARRIVED ON THIS UNIT AT 2021 WITH STAFF. ADMITTED ON A 5250 HOLD FOR GD. PER HOLD, PT. WITH PSYCHOSIS, DISORGANIZATION, AGITATED AND REFUSING CARE. THE DOCUMENTATION IN HOLD APPEARS TO REFLECT THE PRESENTATION OF PATIENT. UPON FACE TO FACE ASSESSMENT, PT. NOTED DISHEVELED, DISORGANIZED, CONFUSED, DISORIENTED AND NEEDS REDIRECTION. PT. IS CURRENTLY LYING DOWN IN BED. NO C/O OF PAIN OR DISTRESS. BREATHING UNLABORED WITH EQUAL RISE AND FALL OF CHEST. A/O X1 ON ROOM AIR. NO NEEDS AT THIS TIME. DENIES SI/HI. REFUSED TO SIGN PAPERWORK. PT. ADVISED ON HOLD. UNDER PSYCH CARE OF DR. AYALA AND MEDICAL CARE OF GRICELDA. BELONGINGS WERE INVENTORIED AND CHECKED FOR CONTRABAND. SKIN ASSESSMENT COMPLETED. EDUCATED BOBBIN INSPECTOR FREEMAN. SIDE RAILS UP X2 FOR SAFETY, BED LOCKED, LOW. WILL CONTINUE TO MONITOR FOR SAFETY AND BEHAVIOR.
[2020-04-12] MEDS ORDERED: ONDANSETRON 4 MG TAB.RAPDIS PO PRN (20:30)
[2020-04-12] MEDS ORDERED: ACETAMINOPHEN 325 MG TABLET PO PRN (21:00)
[2020-04-12] MEDS ORDERED: MAG HYDROX/AL HYDROX/SIMETH 30 ML UDC PO PRN (21:00)
[2020-04-12] MEDS ORDERED: MAGNESIUM HYDROXIDE 30 ML UDC PO PRN (21:00)
[2020-04-12 21:13] VITALS: BP 141/82
[2020-04-12] MEDS ORDERED: DIGO250T PO (21:29)
[2020-04-12] MEDS ORDERED: DILT240C88 PO (21:29)
[2020-04-12] MEDS ORDERED: ASPI-1420 PO (21:29)
[2020-04-12] MEDS ORDERED: GABA-532 PO (21:30)
[2020-04-12] MEDS ORDERED: HYDR-4384 PO (21:32)
[2020-04-12] MEDS ORDERED: ONDA4TAB5 PO (21:32)
[2020-04-12] MEDS ORDERED: ZOLP5TAB2 PO (21:33)
[2020-04-12] MEDS ORDERED: BUSP5TAB3 PO (21:35)
[2020-04-12] MEDS ORDERED: BLOOD SUGAR DIAGNOSTIC 1 EACH STRIP IN ONE (22:00)
[2020-04-12 23:15] VITALS: BP 125/58
[2020-04-13] MEDS: LORAZEPAM 0.5 MG TABLET PO PRN ×2 (01:09→19:46)
--- NOTE | 2020-04-13 01:09 | NUR ---
GPS RN NOTE: ANXIETY PT. APPEARS ANXIOUS. ADMINISTERED ATIVAN 0.5 MG PO PRN ORDERED. WILL CONTINUE TO MONITOR FOR SAFETY AND BEHAVIOR
[2020-04-13] MEDS: TEMAZEPAM 7.5 MG CAPSULE PO PRN ×2 (02:40→22:45)
--- NOTE | 2020-04-13 02:40 | NUR ---
GPS RN NOTE: INSOMNIA PT. UNABLE TO SLEEP. ADMINISTERED RESTORIL 7.5 MG PO PRN ORDERED. WILL CONTINUE TO MONITOR FOR SAFETY AND BEHAVIOR
[2020-04-13 08:00] VITALS: BP 117/73
[2020-04-13] MEDS: GABAPENTIN 100 MG CAPSULE PO SCH ×3 (09:06→16:12)
[2020-04-13] MEDS: MUPIROCIN OINT 2% 22 GM TUBE NS SCH ×2 (09:07→21:22)
[2020-04-13] MEDS: ASPIRIN EC 81 MG TABLET.DR PO SCH (09:07)
[2020-04-13] MEDS: DILTIAZEM HCL CD 240 MG PO SCH (12:09)
[2020-04-13] MEDS: DIGOXIN 0.125 MG TABLET PO SCH (12:10)
[2020-04-13] MEDS ORDERED: DIGOXIN 0.125 MG TABLET PO SCH (13:00)
[2020-04-13] MEDS ORDERED: DIGOXIN ELIX UDC 0.25 MG/5 ML UDC PO SCH (13:00)
[2020-04-13 16:00] VITALS: BP 153/78
[2020-04-13] MEDS: busPIRone 5 MG TABLET PO SCH (16:12)
[2020-04-13] MEDS: OLANZAPINE 2.5 MG TABLET PO SCH (16:12)
--- NOTE | 2020-04-13 19:52 | NUR ---
GPS-RN NOTE: ANXIETY PATIENT NOTED TO BE ANXIOUS, RESTLESS, SCREAMING AND YELLING. ADMINISTERED ATIVAN 0.5 MG PO ORDERED. WILL CONTINUE TO MONITOR FOR SAFETY AND BEHAVIOR.
[2020-04-13 21:01] VITALS: BP 120/97
--- NOTE | 2020-04-13 22:46 | NUR ---
GPS-RN NOTE: INSOMNIA PATIENT C/O INABILITY TO SLEEP. ADMINISTERED RESTORIL 7.5MG PO ORDERED. WILL CONTINUE TO MONITOR FOR SAFETY.
[2020-04-14 07:32] LABS: BASOPHILS % (AUTO) 0.5 % (0.0-2.0); EOSINOPHILS % (AUTO) 0.4 % (0.0-6.0); HEMATOCRIT 40 % (39-51); HEMOGLOBIN 12.9 g/dL (13.5-17.5); LYMPHOCYTES % (AUTO) 15.3 % (20.0-44.0); MEAN CORPUSCULAR HGB CONC 32 g/dl (31.0-36.0); MEAN CORPUSCULAR VOLUME 92 fL (80-96); MONOCYTES # (AUTO) 0.8 /CMM (0.1-1.30); NEUTROPHILS # (AUTO) 4.6 /CMM (1.8-8.9); NEUTROPHILS % (AUTO) 71.8 % (43.0-81.0); PLATELET COUNT (AUTO) 116 /CMM (150-450); RED BLOOD CELL COUNT(AUTO) 4.37 MIL/uL (4.5-6.0); WHITE BLOOD COUNT (AUTO) 6.4 K/uL (4.3-11.0)
[2020-04-14 07:37] LABS: CALCIUM, SERUM 8.9 mg/dL (8.5-10.1); CREATININE 0.7 mg/dL (0.6-1.3); POTASSIUM 3.9 mmol/L (3.5-5.1)
[2020-04-14 08:00] VITALS: BP 114/81
[2020-04-14 08:17] LABS: DIGOXIN 0.88 ng/mL (0.90-2.00)
[2020-04-14] MEDS: GABAPENTIN 100 MG CAPSULE PO SCH ×3 (08:55→16:40)
[2020-04-14] MEDS: OLANZAPINE 2.5 MG TABLET PO SCH ×2 (08:55→16:41)
[2020-04-14] MEDS: ASPIRIN EC 81 MG TABLET.DR PO SCH (08:56)
[2020-04-14] MEDS: busPIRone 5 MG TABLET PO SCH ×3 (08:56→16:41)
[2020-04-14] MEDS: DILTIAZEM HCL CD 240 MG PO SCH (08:56)
--- NOTE | 2020-04-14 09:00 | NUR ---
RN OPENING NOTE RECEIVED PATIENT IN BED AWAKE, ALERT AND ORIENTED TO SELF, NO ACUTE DISTRESS NOTED.MONGOLIAN SPEAKER, DENIES PAIN, PATIENT REMAINS CONFUSED, LABILE, ANXIOUS, RESTLESS, MED COMPLIANT, DISORGANIZED. REORIENTATION PROVIDED. SAFETY PRECAUTIONS IMPLEMENTED. ALL NEEDS ATTENDED AND ANTICIPATED. WILL CONTINUE TO MONITOR Q15MIN ROUNDS FOR SAFETY AND BEHAVIOR.
[2020-04-14 10:03] LABS: BAND % (MANUAL) 2 % (0.0-5.0); LYMPHOCYTES % (MANUAL) 16 % (16-48); MONOCYTES % (MANUAL) 9 % (0-11.0); MYELOCYTES % 1 % (0-0); NEUTROPHILS % (MANUAL) 72 (42-76)
[2020-04-14] MEDS: MUPIROCIN OINT 2% 22 GM TUBE NS SCH ×2 (10:41→20:18)
[2020-04-14] MEDS: DIGOXIN 0.125 MG TABLET PO SCH (12:51)
[2020-04-14 15:54] VITALS: BP 132/96
--- NOTE | 2020-04-14 18:31 | NUR ---
PATIENT ASKED TO SIT UP IN THE CHAIR AND BE TRANSECTED TO REC ROOM , APPROPRIATE BEHAVIOR, WILL CONT TO MONITOR
[2020-04-14] MEDS: LORAZEPAM 0.5 MG TABLET PO PRN (19:44)
--- NOTE | 2020-04-14 19:46 | NUR ---
GPS-RN NOTE: ANXIETY PATIENT NOTED TO BE ANXIOUS, RESTLESS, SCREAMING AND YELLING. NO SOB. NO RESP DISTRESS. VITAL WNL. ADMINISTERED ATIVAN 0.5 MG PO ORDERED. WILL CONTINUE TO MONITOR FOR SAFETY AND BEHAVIOR.
[2020-04-14 19:59] VITALS: BP 137/89
[2020-04-14 21:44] VITALS: BP 125/71
--- NOTE | 2020-04-14 22:00 | NUR ---
GPS RN NOTE: INSOMNIA PATIENT C/O INABILITY TO SLEEP. VITALS CHECKED WNL. NO SOB. NO RESP DISTRESS. ADMINISTERED RESTORIL 7.5MG PO ORDERED. PT TOLERTAED MEDICATION WELL. WILL CONTINUE TO MONITOR FOR SAFETY.
[2020-04-14] MEDS: TEMAZEPAM 7.5 MG CAPSULE PO PRN (22:11)
--- NOTE | 2020-04-15 03:38 | NUR ---
GPS RN NOTES: BACK PAIN UPON DOING ROUNDS PT C/O OF 11/20 BACK PAIN. OFFERED TYLENOL 650 MG PO PRN ORDERED. PT AGREED AND TOLERATED MEDICATION WELL. CONTINUE TO MONITOR.
[2020-04-15 08:00] VITALS: BP 120/79
[2020-04-15] MEDS: ASPIRIN EC 81 MG TABLET.DR PO SCH (08:42)
[2020-04-15] MEDS: OLANZAPINE 2.5 MG TABLET PO SCH ×3 (08:42→17:11)
[2020-04-15] MEDS: DILTIAZEM HCL CD 240 MG PO SCH (08:43)
[2020-04-15] MEDS: GABAPENTIN 100 MG CAPSULE PO SCH (08:43)
[2020-04-15] MEDS: busPIRone 5 MG TABLET PO SCH ×3 (08:43→17:11)
[2020-04-15] MEDS: MUPIROCIN OINT 2% 22 GM TUBE NS SCH ×2 (08:55→20:39)
--- NOTE | 2020-04-15 09:26 | NUR ---
JL Psychosocial Attestation: I, Mojgan Perdue MSW, attest to the accuracy of the psychosocial assessment done on this patient by Antoinette SOLANO on 04/08/2020. On the admissions for 04/08/2020, the patient was admitted to [facility] on a 5150 hold for grave disability. Patient has initially come to ER with knee pain, and a psychiatric evaluation was ordered due to patient becoming increasingly confused, disoriented, and unable to safely be discharged back home. Patient stated I live in my apartment with a squirrel. The squirrel runs with me. I actually live with my son. He is . On 04/10/20, patient was admitted to the medical inpatient unit due to EKG showing A-FIB. Patient was medically cleared and transferred back to MHU on 04/12/20, now on a 5250 hold for grave disability. Patient currently presents disorganized, disheveled, needs redirection, agitated, and uncooperative with care. Patient is accepted at [address] [address] ([phone]) and will be admitted for placement upon discharge. Patients Juanita mcgarry ([phone]) has been supportive of patients treatment and discharge plan, and would like to remain updated regarding patients plan of care. JL will continue to work with the patient and MD to ensure a safe and proper discharge plan.
[2020-04-15] MEDS: HYDROCODONE/APAP 5/325MG 1 EACH TABLET PO PRN (11:30)
[2020-04-15] MEDS: LORAZEPAM 0.5 MG TABLET PO PRN (11:30)
--- NOTE | 2020-04-15 11:30 | NUR ---
RN NOTE: PAIN/ANXIETY PT YELLING, SCREAMING, HITTING TABLE. REPORTS 7/10 LOWER BACK PAIN. MEDICATED WITH NORCO AND ATIVAN 0.5 MG PO PRN
[2020-04-15] MEDS: DIGOXIN 0.125 MG TABLET PO SCH (12:56)
[2020-04-15] MEDS: GABAPENTIN 300 MG CAPSULE PO SCH ×2 (12:57→17:11)
--- NOTE | 2020-04-15 15:34 | NUR ---
Group Note: SW invited patient to participate in group therapy to discuss the topic of Problem Solving. Patient presents verbally aggressive and unable to engage in a calm and nurturing conversation. SW encouraged patient to interact with peers.
[2020-04-15 16:00] VITALS: BP 121/66
[2020-04-15 19:59] VITALS: BP 133/64
[2020-04-15 20:00] VITALS: BP 133/64
--- NOTE | 2020-04-15 20:04 | NUR ---
GPS RN NOTE: URINE COLLECTED URINE COLLECTED PER MD ORDER & ENDORSED BY AM RN, CALLED LAB, SPOKE TO LUISA & SHE ASSURED THAT LAB PERSON WILL COME TO HOUSEPERSON URINE SAMPLE.
[2020-04-15 21:11] LABS: APPEARANCE,URINE CLEAR (CLEAR); BILIRUBIN,URINE NEGATIVE (NEGATIVE); BLOOD, URINE SMALL Ery/uL (NEGATIVE); COLOR,URINE YELLOW (YELLOW); KETONES,URINE NEGATIVE (NEGATIVE); LEUKOCYTE ESTERASE ,URINE NEGATIVE (NEGATIVE); NITRITE, URINE NEGATIVE (NEGATIVE); PH,URINE 5.5 (5.0-8.0); PROTEIN,URINE TRACE mg/dl (NEGATIVE); UGLUCOSE NEGATIVE (NEGATIVE)
[2020-04-15 21:20] LABS: BACTERIA,URINE 1+ /HPF (None Seen); MUCUS,URINE Few /LPF (None Seen); SQUAMOUS EPITHELIAL CELL,UR 0-2 /HPF (None Seen)
--- NOTE | 2020-04-15 21:30 | NUR ---
URINE SPECIMEN SENT TO LAB.
--- NOTE | 2020-04-15 21:43 | NUR ---
GPS RN NOTE: ECG RESULTED ECG WAS DONE & RESULTED. CALLED [facility] EXPERIMENTAL ASSEMBLER DR. YUN TO INFORM ABOUT ECG RESULTS & LEFT A MESSAGE FOR MD WITH PHONE EXCHANGES. WAITING FOR MD TO CALL BACK. PATIENT IS IN STABLE CONDITION AT THIS TIME. NO C/O CHEST PAIN, NO DIZZINESS/HEADACHE, NO PALPITATIONS, NO SOB VERBALIZED BY THE PATIENT AT THIS TIME. CONTINUING TO MONITOR CLOSELY FOR ANY CHANGES.
--- NOTE | 2020-04-15 22:20 | NUR ---
MD CALLED BACK MD CALLED BACK & REVIEWED BOTH ECG RESULTS & STATED THAT PATIENT HAS CHRONIC A-FIB & RATE IS PERFECTLY CONTROLLED. PER MD, NO NEW ORDER AT THIS TIME. PATIENT IS ASYMPTOMATIC AT THIS TIME. WILL CONTINUE TO MONITOR FOR ANY CHANGES THROUGH OUT THE NIGHT.
[2020-04-16] MEDS: Z GUARD REMEDY 2 OZ OINT TP PRN (03:15)
--- NOTE | 2020-04-16 06:38 | NUR ---
GPS RN NOTE PATIENT HAD DRESSING ON HIS LEFT FOREARM, BUT REFUSED ASSESSMENT OF HIS LEFT FA DESPITE OF RISKS & BENEFITS EXPLANATIONS. EASILY AGITATED/IRRITABLE, BECOMES VERY LOUD & PARANOID. CONTINUING TO MONITOR FOR ANY CHANGES.
--- NOTE | 2020-04-16 06:45 | NUR ---
GPS RN CLOSING NOTE PATIENT SLEPT WELL AT NIGHT. NO CHANGE OF CONDITION NOTED. ASYMPTOMATIC AT THIS TIME. WILL ENDORSE TO AM RN FOR CONTINUITY OF CARE.
[2020-04-16 08:00] VITALS: BP 155/83
[2020-04-16] MEDS: ASPIRIN EC 81 MG TABLET.DR PO SCH (08:33)
[2020-04-16] MEDS: busPIRone 5 MG TABLET PO SCH ×3 (08:33→16:54)
[2020-04-16] MEDS: DILTIAZEM HCL CD 240 MG PO SCH (08:33)
[2020-04-16] MEDS: OLANZAPINE 2.5 MG TABLET PO SCH ×2 (08:33→12:46)
[2020-04-16] MEDS: MUPIROCIN OINT 2% 22 GM TUBE NS SCH ×2 (08:37→20:44)
[2020-04-16] MEDS: GABAPENTIN 300 MG CAPSULE PO SCH ×3 (08:38→16:53)
[2020-04-16] MEDS: HYDROCODONE/APAP 5/325MG 1 EACH TABLET PO PRN (09:11)
[2020-04-16] MEDS: DIGOXIN 0.125 MG TABLET PO SCH (12:49)
--- NOTE | 2020-04-16 14:22 | NUR ---
Friend Contact: SW spoke with patient's neighbor/friend Cleve ([phone]) who was requesting to be updated when patient is discharged from the hospital to [facility].
[2020-04-16] MEDS: BENZTROPINE MESYLATE (1 MG) 1 MG TABLET PO SCH ×2 (15:27→19:43)
[2020-04-16] MEDS: HALOPERIDOL 5 MG TABLET PO SCH ×3 (15:27→20:44)
--- NOTE | 2020-04-16 15:50 | NUR ---
Group Note: SW encouraged pt to attend group therapy on 04/16/20 on the topic of discharge planning. Pt refused to attend the group and appeared to be confused and disorganized.
[2020-04-16 16:00] VITALS: BP 119/59
[2020-04-16 20:06] VITALS: BP 112/65
[2020-04-17 08:00] VITALS: BP 152/84
[2020-04-17] MEDS: DILTIAZEM HCL CD 240 MG PO SCH (08:56)
[2020-04-17] MEDS: MUPIROCIN OINT 2% 22 GM TUBE NS SCH ×2 (08:56→21:12)
[2020-04-17] MEDS: GABAPENTIN 300 MG CAPSULE PO SCH ×3 (08:57→17:05)
[2020-04-17] MEDS: HALOPERIDOL 5 MG TABLET PO SCH ×4 (08:57→21:12)
[2020-04-17] MEDS: Z GUARD REMEDY 2 OZ OINT TP PRN (08:57)
[2020-04-17] MEDS: BENZTROPINE MESYLATE (1 MG) 1 MG TABLET PO SCH ×2 (08:57→17:05)
[2020-04-17] MEDS: ASPIRIN EC 81 MG TABLET.DR PO SCH (08:57)
[2020-04-17] MEDS: busPIRone 5 MG TABLET PO SCH ×3 (08:57→17:05)
[2020-04-17] MEDS: LORAZEPAM 0.5 MG TABLET PO PRN (10:03)
--- NOTE | 2020-04-17 10:08 | NUR ---
GPS/RN-NOTES NOTED PATIENT VERY ANGRY ,IRRITABLE FOCUSING ON GOING OUT THE UNIT. REDIRECTED AND REORIENTED PATIENT. OFFERED ATIVAN 0.5MG P.O PRN ORDER. WILL CONT.MONITORING FOR SAFETY AND BEHAVIOR.
--- NOTE | 2020-04-17 11:00 | NUR ---
GPS/RN-NOTES PATIENT IN THE DAY ROOM UP ON THE WHEEL CHAIR GUARDED,CALM AT THIS TIME.NO ACUTE DISTRESS NOTED.
--- NOTE | 2020-04-17 11:24 | NUR ---
Group Note: SW encouraged pt to participate in group on the topic of dealing with anxiety. Patient presented agitated and repeatedly stated "I want to go lay down in bed". SW attempted to calm patient and redirect, however patient began to get tearful and stated "I want to go home".
[2020-04-17] MEDS: DIGOXIN 0.125 MG TABLET PO SCH (12:27)
[2020-04-17 16:00] VITALS: BP 136/73
--- NOTE | 2020-04-17 17:39 | NUR ---
GPS/RN-NOTES GOT T.O ORDER FROM MARGARET MADISON FOR ENSURE SUPPLEMENTS BID. NOTED AND CARRIED OUT.
[2020-04-17 19:32] VITALS: BP 126/77
[2020-04-18 08:00] VITALS: BP 135/77
[2020-04-18] MEDS: BENZTROPINE MESYLATE (1 MG) 1 MG TABLET PO SCH ×2 (08:39→16:18)
[2020-04-18] MEDS: ASPIRIN EC 81 MG TABLET.DR PO SCH (08:39)
[2020-04-18] MEDS: GABAPENTIN 300 MG CAPSULE PO SCH ×3 (08:40→16:17)
[2020-04-18] MEDS: DILTIAZEM HCL CD 240 MG PO SCH (08:40)
[2020-04-18] MEDS: busPIRone 5 MG TABLET PO SCH ×3 (08:40→16:18)
[2020-04-18] MEDS: HALOPERIDOL 5 MG TABLET PO SCH ×4 (08:43→21:28)
[2020-04-18] MEDS: ENSURE ENLIVE 237 ML LIQUID (VANILLA) PO SCH ×3 (08:57→16:19)
[2020-04-18] MEDS: HYDROCODONE/APAP 5/325MG 1 EACH TABLET PO PRN ×2 (09:10→21:34)
--- NOTE | 2020-04-18 09:10 | NUR ---
RN NOTE: PAIN PT COMPLAINING OF GENERALIZED PAIN 04/22 . MEDICATED WITH NORCO 5 MG/325 GIVEN PER ORDER WILL CONTINUE MONITORING
[2020-04-18] MEDS: DIGOXIN 0.125 MG TABLET PO SCH (12:16)
[2020-04-18 16:00] VITALS: BP 132/85
[2020-04-18 20:12] VITALS: BP 130/75
[2020-04-19 06:19] LABS: BASOPHILS # (AUTO) 0.1 /CMM (0.0-0.2); BASOPHILS % (AUTO) 0.7 % (0.0-2.0); EOSINOPHILS % (AUTO) 0.2 % (0.0-6.0); HEMATOCRIT 39 % (39-51); HEMOGLOBIN 12.7 g/dL (13.5-17.5); LYMPHOCYTES # (AUTO) 1.6 /CMM (0.8-4.8); LYMPHOCYTES % (AUTO) 21.6 % (20.0-44.0); MEAN CORPUSCULAR HGB CONC 32 g/dl (31.0-36.0); MEAN CORPUSCULAR VOLUME 91 fL (80-96); MONOCYTES # (AUTO) 1.1 /CMM (0.1-1.30); MONOCYTES % (AUTO) 14.5 % (2.0-12.0); NEUTROPHILS # (AUTO) 4.6 /CMM (1.8-8.9); PLATELET COUNT (AUTO) 108 /CMM (150-450); RED BLOOD CELL COUNT(AUTO) 4.31 MIL/uL (4.5-6.0); WHITE BLOOD COUNT (AUTO) 7.4 K/uL (4.3-11.0)
[2020-04-19 06:50] LABS: ALBUMIN 2.4 g/dL (3.4-5.0); BILIRUBIN,TOTAL 0.5 mg/dL (0.2-1.0); CALCIUM, SERUM 8.9 mg/dL (8.5-10.1); CREATININE 0.8 mg/dL (0.6-1.3); POTASSIUM 3.8 mmol/L (3.5-5.1); TOTAL PROTEIN, SERUM 5.8 g/dL (6.4-8.2)
[2020-04-19 08:11] LABS: BAND % (MANUAL) 4 % (0.0-5.0); LYMPHOCYTES % (MANUAL) 21 % (16-48); MONOCYTES % (MANUAL) 16 % (0-11.0); MYELOCYTES % 2 % (0-0); NEUTROPHILS % (MANUAL) 57 (42-76)
[2020-04-19] MEDS: GABAPENTIN 300 MG CAPSULE PO SCH ×3 (08:27→16:38)
[2020-04-19] MEDS: ASPIRIN EC 81 MG TABLET.DR PO SCH (08:27)
[2020-04-19] MEDS: DILTIAZEM HCL CD 240 MG PO SCH (08:27)
[2020-04-19] MEDS: HALOPERIDOL 5 MG TABLET PO SCH ×4 (08:27→20:45)
[2020-04-19] MEDS: ENSURE ENLIVE 237 ML LIQUID (VANILLA) PO SCH ×3 (08:28→16:38)
[2020-04-19] MEDS: busPIRone 5 MG TABLET PO SCH ×3 (08:28→16:37)
[2020-04-19 08:30] VITALS: BP 133/84
[2020-04-19] MEDS: BENZTROPINE MESYLATE (1 MG) 1 MG TABLET PO SCH ×2 (09:09→16:38)
[2020-04-19] MEDS: HYDROCODONE/APAP 5/325MG 1 EACH TABLET PO PRN (11:18)
[2020-04-19] MEDS: DIGOXIN 0.125 MG TABLET PO SCH (12:31)
[2020-04-19 16:00] VITALS: BP 125/72
--- NOTE | 2020-04-19 19:30 | NUR ---
GPS RN NOTE RECEIVED PT IN HER ROOM, PARANOID, GUARDED, ANXIOUS, LABILE MOOD, AGGRESSIVE, SCREAMING , HYPERVERBAL, TALKING TO SELF. NEEDS FREQUETNYL REDIRECTION , WILL CONTINUE TO MONITOR Q15 MIN FOR SAFETY AND BEHAVIOR.
[2020-04-19 19:45] VITALS: BP 162/82
[2020-04-19 21:30] VITALS: BP 135/70
--- NOTE | 2020-04-20 06:56 | NUR ---
GPS RN CLOSING NOTE PATIENT SLEPT WELL AT NIGHT. NO CHANGE OF CONDITION NOTED. NO ACUTE DISTRESS NOTED. WILL ENDORSE TO AM RN FOR CONTINUITY OF CARE.
[2020-04-20 08:00] VITALS: BP 143/63
[2020-04-20] MEDS: ASPIRIN EC 81 MG TABLET.DR PO SCH (08:42)
[2020-04-20] MEDS: HALOPERIDOL 5 MG TABLET PO SCH ×4 (08:42→21:19)
[2020-04-20] MEDS: busPIRone 5 MG TABLET PO SCH ×3 (08:42→16:22)
[2020-04-20] MEDS: DILTIAZEM HCL CD 240 MG PO SCH (08:43)
[2020-04-20] MEDS: BENZTROPINE MESYLATE (1 MG) 1 MG TABLET PO SCH ×2 (08:43→16:23)
[2020-04-20] MEDS: GABAPENTIN 300 MG CAPSULE PO SCH ×3 (08:43→16:23)
[2020-04-20] MEDS: ENSURE ENLIVE 237 ML LIQUID (VANILLA) PO SCH ×3 (08:44→16:23)
[2020-04-20] MEDS: DIGOXIN 0.125 MG TABLET PO SCH (12:28)
[2020-04-20 16:00] VITALS: BP 127/71
[2020-04-20 20:30] VITALS: BP 128/65
[2020-04-21] MEDS: Z GUARD REMEDY 2 OZ OINT TP PRN (05:23)
[2020-04-21 08:00] VITALS: BP 125/76
[2020-04-21] MEDS: BENZTROPINE MESYLATE (1 MG) 1 MG TABLET PO SCH ×2 (08:36→16:36)
[2020-04-21] MEDS: HALOPERIDOL 5 MG TABLET PO SCH ×4 (08:36→21:26)
[2020-04-21] MEDS: busPIRone 5 MG TABLET PO SCH ×3 (08:36→16:36)
[2020-04-21] MEDS: ENSURE ENLIVE 237 ML LIQUID (VANILLA) PO SCH ×3 (08:36→16:36)
[2020-04-21] MEDS: ASPIRIN EC 81 MG TABLET.DR PO SCH (08:36)
[2020-04-21] MEDS: GABAPENTIN 300 MG CAPSULE PO SCH ×3 (08:36→16:36)
[2020-04-21] MEDS: DILTIAZEM HCL CD 240 MG PO SCH (08:44)
[2020-04-21] MEDS: DIGOXIN 0.125 MG TABLET PO SCH (12:00)
[2020-04-21 15:53] VITALS: BP 101/67
[2020-04-21 20:00] VITALS: BP 110/68
[2020-04-22] MEDS: Z GUARD REMEDY 2 OZ OINT TP PRN ×2 (00:13→06:41)
--- NOTE | 2020-04-22 07:06 | NUR ---
GPS RN OPENING NOTES RECEIVED PATIENT AWAKE IN BED AT THIS TIME, GUARDED,PARANOID, DISHEVEL DELUSIONAL HYPERVERBAL NO S/S OF ANY ACUTE DISTRESS NOTED. NO C/O PAIN AT THIS TIME. PATIENT IS CONFUSED, FORGETFUL, LABILE, ANXIOUS, RESTLESS, PT IS MED COMPLIANT.SAFETY MAINTAIN AT ALL TIMES. BED IN LOWEST LOCKED POSITION, SIDE RAILS UPX2, CALL LIGHT WITHIN REACH. WILL CONTINUE TO MONITOR Q15M, PRN AND PER PROTOCOL FOR SAFETY AND BEHAVIOR.
[2020-04-22 08:00] VITALS: BP 132/72
[2020-04-22] MEDS: busPIRone 5 MG TABLET PO SCH ×3 (09:10→17:07)
[2020-04-22] MEDS: DILTIAZEM HCL CD 240 MG PO SCH (09:10)
[2020-04-22] MEDS: BENZTROPINE MESYLATE (1 MG) 1 MG TABLET PO SCH ×2 (09:10→17:07)
[2020-04-22] MEDS: ASPIRIN EC 81 MG TABLET.DR PO SCH (09:10)
[2020-04-22] MEDS: GABAPENTIN 300 MG CAPSULE PO SCH ×3 (09:10→17:08)
[2020-04-22] MEDS: HALOPERIDOL 5 MG TABLET PO SCH ×4 (09:12→21:36)
[2020-04-22] MEDS: ENSURE ENLIVE 237 ML LIQUID (VANILLA) PO SCH ×3 (09:14→17:09)
[2020-04-22] MEDS: DIGOXIN 0.125 MG TABLET PO SCH (12:59)
--- NOTE | 2020-04-22 13:00 | NUR ---
ASSESS PT'S PULSE MANUALLY. RADIAL PULSE IS 80. VITAL SIGNS, BP 132/79 HR 80, RR 20, T 98.5, SPO2 98%. DIGOXIN 0.25MG PO QD1PM ADMINISTERED PER ORDER. WILL CONTINUE TO MONITOR
[2020-04-22 16:00] VITALS: BP 117/80
--- NOTE | 2020-04-22 19:03 | NUR ---
GPS RN CLOSING NOTES PT RESTING IN BED AT THIS TIME. PT REMAINED STABLE THROUGHOUT SHIFT. ALL CARE, NEEDS, TREATMENT AND MEDICATIONS ADMINISTERED ANTICIPATED PER ORDER. PT KEPT CLEAN AND DRY. PT REPOSITIONED Q2HR, PRN AND PER PROTOCOL. SAFETY MAINTAIN AT ALL TIMES. BED IN LOWEST LOCKED POSITION, SIDE RAILS UPX2, CALL LIGHT WITHIN REACH. WILL CONTINUE TO MONITOR Q15M, PRN AND PER PROTOCOL FOR SAFETY AND BEHAVIOR Addendum: 04/22/20 at 1908 by DIONISIO WILBURN RN GPS RN CLOSING NOTES PT SITTING IN HALLWAY AT THIS TIME. PT REMAINED STABLE THROUGHOUT SHIFT. ALL CARE, NEEDS, TREATMENT AND MEDICATIONS ADMINISTERED ANTICIPATED PER ORDER. PT KEPT CLEAN AND DRY. PT REPOSITIONED Q2HR, PRN AND PER PROTOCOL. SAFETY MAINTAIN AT ALL TIMES. BED IN LOWEST LOCKED POSITION, SIDE RAILS UPX2, CALL LIGHT WITHIN REACH. WILL ENDORSE TO [employer] KILN OPERATOR NURSE FOR GEOFFREY
[2020-04-22 19:37] VITALS: BP 122/79
[2020-04-22] MEDS: TEMAZEPAM 7.5 MG CAPSULE PO PRN (22:32)
[2020-04-23 08:00] VITALS: BP 139/85
[2020-04-23] MEDS: GABAPENTIN 300 MG CAPSULE PO SCH ×3 (09:05→16:25)
[2020-04-23] MEDS: ENSURE ENLIVE 237 ML LIQUID (VANILLA) PO SCH ×3 (09:06→16:27)
[2020-04-23] MEDS: BENZTROPINE MESYLATE (1 MG) 1 MG TABLET PO SCH ×2 (09:06→16:26)
[2020-04-23] MEDS: ASPIRIN EC 81 MG TABLET.DR PO SCH (09:06)
[2020-04-23] MEDS: HALOPERIDOL 5 MG TABLET PO SCH ×4 (09:06→21:50)
[2020-04-23] MEDS: DILTIAZEM HCL CD 240 MG PO SCH (09:06)
[2020-04-23] MEDS: busPIRone 5 MG TABLET PO SCH ×3 (09:06→16:26)
--- NOTE | 2020-04-23 11:02 | NUR ---
FRIEND CONTACT: JL spoke with patient's neighbor/friend Cleve ([phone]) to inform her pt will be discharge tomorrow Wednesday04/24/[address] [facility] [place].
[2020-04-23] MEDS: DIGOXIN 0.125 MG TABLET PO SCH (13:00)
[2020-04-23 16:00] VITALS: BP 136/66
--- NOTE | 2020-04-23 18:37 | NUR ---
RN Closing note Patient sitting on [address] watching TV, does no appears anxiety or restlessness. Pt took all scheduled medications with compliance during day shift. Skin is warm to touch, respiratory even and unlabored on room air, O2sat 97%, no distress observed. Kept bed in locked, side rails up x 2, will endorse manager night and continue to monitor for safety.
[2020-04-23 20:01] VITALS: BP 113/78
[2020-04-23] MEDS: TEMAZEPAM 7.5 MG CAPSULE PO PRN (22:30)
--- NOTE | 2020-04-24 06:39 | NUR ---
GPS RN CLOSING NOTES: PT IS AWAKE AND IN DIANE-CHAIR. RESPIRATION EVEN AND UNLABORED WITH EQUAL RISE AND FALL OF THE CHEST. ALL CARE NEEDS, TREATMENT AND MEDICATIONS ADMINISTERED ANTICIPATED PER ORDER. PT IS MED COMPLIANT. PER ORDER, PT WILL BE DISCHARGED TODAY AT 1230 TO [facility] VIA [id number]. WILL CONTINUE TO MONITOR [id number] AND Q1HR PER GPS PROTOCOL FOR SAFETY, MOOD AND BEHAVIOR AND ENDORSE TO AM SHIFT.
[2020-04-24 08:00] VITALS: BP 130/69
[2020-04-24] MEDS: ENSURE ENLIVE 237 ML LIQUID (VANILLA) PO SCH ×2 (08:13→12:13)
[2020-04-24 09:26] VITALS: BP 130/69
[2020-04-24] MEDS: GABAPENTIN 300 MG CAPSULE PO SCH ×2 (09:26→13:08)
[2020-04-24] MEDS: ASPIRIN EC 81 MG TABLET.DR PO SCH (09:26)
[2020-04-24] MEDS: DILTIAZEM HCL CD 240 MG PO SCH (09:26)
[2020-04-24] MEDS: BENZTROPINE MESYLATE (1 MG) 1 MG TABLET PO SCH ×2 (09:27→13:08)
[2020-04-24] MEDS: HALOPERIDOL 5 MG TABLET PO SCH ×2 (09:27→13:09)
[2020-04-24] MEDS: busPIRone 5 MG TABLET PO SCH ×2 (09:27→13:08)
--- NOTE | 2020-04-24 10:20 | NUR ---
DISCHARGE NOTE: Pt will be discharged at 12:30pm via AM [facility] to [facility] ([facility] [id number] [address] [id number] . Pt has no family and pts friend Cleve ([phone]) was notified. Pts mood is labile with congruent affect. Pt is alert and oriented x1 to self only. Pt denies visual/auditory hallucinations and denied suicidal/homicidal ideation. Pt will be under the care of Psychiatrist: Dr. Leanna Munoz [address], [place] [address] and Dairy Husbandman: Dr. Shar Gautam Address: [address], [place] [address] . The multidisciplinary exit care form was done, printed, signed, and given to the patient.
--- NOTE | 2020-04-24 10:56 | NUR ---
covid swab done and specimen taken to lab-awaiting results.
--- NOTE | 2020-04-24 13:00 | NUR ---
ALLOWED RN TO TAKE PHOTO OF MASS ON NOSE,BUT REFUSING ADDITIONAL PHOTOS.
[2020-04-24] MEDS: DIGOXIN 0.125 MG TABLET PO SCH (13:08)
--- NOTE | 2020-04-24 13:50 | NUR ---
DC PAPERS SIGNED,BELONGING SHEET SIGNED,REPORT CALLED TO FACILITY.REPORT TO DRIVERS.TRANSPORTED VIA AMB. TO FACILITY.PT. DENIES SUICIDAL OR HOMICIDAL IDEATIONS,ANXIOUS TO LEAVE.
== END 2020-04-24 14:02 | DRG 885 ==
LOC: GPS 20:20
PROVIDERS: ADMIT Psychiatry & Neurology Psychiatry; ATTEND Student in an Organized Health Care Education/Training Program
PROC: 09BKXZX Excision of Nasal Mucosa and Soft Tissue, External Approach, Diagnostic (ICD-10-PCS; principal; 2020-04-17)
DX: F25.0 Schizoaffective disorder, bipolar type (principal); E44.0 Moderate protein-calorie malnutrition; F03.91 Unspecified dementia, unspecified severity, with behavioral disturbance; F29 Unspecified psychosis not due to a substance or known physiological condition; I48.91 Unspecified atrial fibrillation; I10 Essential (primary) hypertension; Z68.26 Body mass index [BMI] 26.0-26.9, adult; D69.6 Thrombocytopenia, unspecified; M17.12 Unilateral primary osteoarthritis, left knee; E88.09 Other disorders of plasma-protein metabolism, not elsewhere classified; L98.8 Other specified disorders of the skin and subcutaneous tissue; C44.311 Basal cell carcinoma of skin of nose; Z73.6 Limitation of activities due to disability; M25.462 Effusion, left knee
CPT/HCPCS: 36415; 80048-TC; 80053-TC; 80061-TC; 80162-TC; 81000-TC; 82962-TC; 85025-TC; 87086-TC; 97110-TC; 97116-TC; 97530-TC

== ENCOUNTER 2020-05-18 13:25 | Inpatient (IN) | payer MEDICARE, BC ==
[~2020-05-18] VITALS: Ht 180.3 cm; Wt 65.8 kg
[~2020-05-18 13:25] MED LIST changes: +ASPI-1420 PO; -ATOR10TA PO; +DIGO250T GT; +DILT240C88 GT; +GABA-532 GT; +HYDR-4384 PO; -LOSA1TAB3 PO; -METO50TA7 PO; +ONDA4TAB5 PO; -PROP300T2 PO; -WARF1TAB
[2020-05-18] MEDS ORDERED: ACETAMINOPHEN 650 MG/SUPP.RECT RC ONE ×2 (13:36→14:00)
--- NOTE | 2020-05-18 13:45 | NUR ---
SIMPSON VIRUS SWAB PCR DONE AND SENT TO LAB.
[2020-05-18 13:52] LABS: BASOPHILS % (AUTO) 0.4 % (0.0-2.0); EOSINOPHILS % (AUTO) 0.3 % (0.0-6.0); HEMATOCRIT 39 % (39-51); HEMOGLOBIN 12.7 g/dL (13.5-17.5); LYMPHOCYTES # (AUTO) 1.6 /CMM (0.8-4.8); LYMPHOCYTES % (AUTO) 18.2 % (20.0-44.0); MEAN CORPUSCULAR HGB CONC 32 g/dl (31.0-36.0); MEAN CORPUSCULAR VOLUME 90 fL (80-96); MONOCYTES # (AUTO) 1.6 /CMM (0.1-1.30); NEUTROPHILS # (AUTO) 5.3 /CMM (1.8-8.9); NEUTROPHILS % (AUTO) 62.1 % (43.0-81.0); PLATELET COUNT (AUTO) 103 /CMM (150-450); RED BLOOD CELL COUNT(AUTO) 4.39 MIL/uL (4.5-6.0); WHITE BLOOD COUNT (AUTO) 8.6 K/uL (4.3-11.0)
[2020-05-18 13:55] LABS: ABG BASE EXCESS 3.4 mmol/L; ABG OXYGEN SATURATION 94.1 % (92.0-98.5); ABG PCO2 34.8 mmHg (35.0-45.0); ABG PH 7.498 (7.350-7.450); ABG PO2 72.2 mmHg (75.0-100.0); AaDO2 35.9 mmHg; MetHb 0.5 % (0.0-1.5); O2Hb 92.7 % (94.0-97.0); SITE, ABG Right Brachial; VENT MODE, BG ROOM AIR
[2020-05-18 14:07] LABS: CALCIUM, SERUM 9.1 mg/dL (8.5-10.1); CARBON DIOXIDE 27 mmol/L (21-32); CHLORIDE 102 mmol/L (98-107); CREATININE 0.9 mg/dL (0.6-1.3); GLUCOSE 164 mg/dL (74-106); POTASSIUM 3.5 mmol/L (3.5-5.1); SODIUM SERUM 140 mmol/L (136-145); UREA NITROGEN, BLOOD 22 mg/dL (7-18)
--- NOTE | 2020-05-18 14:11 | NUR ---
bibra78, from snf, altered than usual, fever. PT EYES OPEN, NONVERBAL. RR EVEN & UNLBORED. PT SEEN & EVAL'D BY DR. NARVAEZ & DR. DIXON. PLACED ON AIR OPERATIONS MANAGER, SR. NO ACUTE DISTRESS NOTED AT THIS TIME. WILL CONT TO MONITOR.
[2020-05-18 14:22] LABS: ACETAMINOPHEN 0 ug/ml (10-30); ALANINE AMINOTRANSFERASE 36 U/L (12-78); ALBUMIN 2.6 g/dL (3.4-5.0); ALCOHOL, BLOOD < 3 mg/dL (0-0); ALKALINE PHOSPHATASE 108 U/L (46-116); ASPARTATE AMINOTRANSFERASE 48 U/L (15-37); BILIRUBIN,DIRECT 0.4 mg/dL (0.0-0.2); BILIRUBIN,TOTAL 1.2 mg/dL (0.2-1.0); SALICYLATE 0.5 mg/dL (2.8-20.0); TOTAL PROTEIN, SERUM 6.7 g/dL (6.4-8.2)
[2020-05-18] MEDS ORDERED: MAGN400O6 GT (14:36)
[2020-05-18] MEDS ORDERED: ACET-868 GT (14:36)
[2020-05-18] MEDS ORDERED: BUSP5TAB3 GT (14:36)
[2020-05-18] MEDS ORDERED: BENZ0.5T43 GT (14:36)
[2020-05-18] MEDS ORDERED: MAG30ORA GT (14:36)
[2020-05-18] MEDS ORDERED: HALO0.5T2 PO (14:36)
[2020-05-18 14:49] LABS: SERUM AMMONIA 34 umol/L (11-32)
[2020-05-18 14:57] LABS: D-DIMER 6.21 mg/L(FEU (0.17-0.50)
[2020-05-18 15:11] LABS: BILIRUBIN,URINE SMALL (NEGATIVE); BLOOD, URINE Moderate Ery/uL (NEGATIVE); COLOR,URINE Yellow (YELLOW); KETONES,URINE Trace (NEGATIVE); LEUKOCYTE ESTERASE ,URINE Negative (NEGATIVE); NITRITE, URINE Negative (NEGATIVE); PH,URINE 5.5 (5.0-8.0); PROTEIN,URINE 30 mg/dl (NEGATIVE); UGLUCOSE Negative (NEGATIVE); UROBILINOGEN,URINE 0.2 EU/dL (0.2)
[2020-05-18 15:14] LABS: APPEARANCE,URINE SLIGHTLY CLOUDY (CLEAR)
[2020-05-18 15:15] LABS: BACTERIA,URINE Few /HPF (None Seen); RBC,URINE 21-50 /HPF (0-2); SQUAMOUS EPITHELIAL CELL,UR Few /HPF (None Seen)
[2020-05-18] MEDS ORDERED: PIPERACILLIN /TAZOBACTAM 3.375 G in IV D5W 50 ML IV ONE (15:30)
[2020-05-18] MEDS ORDERED: IV NS 0.9% 1,000 ML BAG IV ONE (15:30)
[2020-05-18 15:57] LABS: C-REACTIVE PROTEIN 19.8 mg/dL (0.0-0.9)
--- NOTE | 2020-05-18 16:20 | NUR ---
CALLED NURSING SUP FOR BED.
[2020-05-18 16:39] LABS: THYROID STIMULATING HORMONE 0.812 uIU/mL (0.358-3.74)
--- NOTE | 2020-05-18 17:00 | NUR ---
PT RESTING, NO RESP DISTRESS NOTED. ON TELE, SR. WILL CONT TO MONITOR.
--- NOTE | 2020-05-18 18:36 | NUR ---
NURSING SUP GAVE TELE OVERFLOW BED 264.
[2020-05-18] MEDS ORDERED: HYDROCODONE/APAP 5/325MG TABLET PO PRN (19:00)
[2020-05-18] MEDS ORDERED: ONDANSETRON HCL/PF 4 MG/2 ML VIAL IVP PRN (19:00)
[2020-05-18] MEDS ORDERED: CEFTRIAXONE 1 G in IV D5W 50 ML IV SCH (19:00)
[2020-05-18] MEDS ORDERED: ACETAMINOPHEN 325 MG TABLET PO PRN (19:00)
[2020-05-18] MEDS ORDERED: Z GUARD REMEDY 2 OZ OINT TP PRN (19:00)
--- NOTE | 2020-05-18 20:25 | NUR ---
REPORT GIVEN TO RONAK RODRIGUEZ FOR GEOFFREY
--- NOTE | 2020-05-18 20:27 | NUR ---
RN OPENING NOTES Received the client from ED. Client is A/O x 2. Client understands simple commands. The client has no apparent s/s of distress nor pain, the client denies pain at this time.The client is on NC with 2L o2. Saturation 99%. Comfort measures provided, safety mechanisms in place, will continue to monitor.
[2020-05-18] MEDS: IV NS 0.9% 1,000 ML IV PRN (21:23)
[2020-05-18 22:00] VITALS: BP 103/72
--- NOTE | 2020-05-18 22:43 | NUR ---
Client failed the swallow the nursing swallow test. Charge nurse Taylor instructs not to order the swallow evaluation. I will order per dietitian in previous sessions
[2020-05-18] MEDS ORDERED: CEFTRIAXONE 1 G VIAL ONE (22:51)
[2020-05-19] VITALS (8 sets, daily range): BP systolic 104–141; BP diastolic 74–93
--- NOTE | 2020-05-19 03:25 | NUR ---
Rn notes The client remains stable at this time, no change of condition at this time. The is able to understand some questions such as and full name, but not able to recognize the place where he is. VS are wnl at this time. Will continue to monitor the client. Addendum: 05/19/20 at 0330 by TRANG LIANG RN The client is able to understand questions and answer correctly, such as when and Full name is asked.( second sentence)
[2020-05-19 04:56] LABS: BASOPHILS % (AUTO) 0.3 % (0.0-2.0); EOSINOPHILS % (AUTO) 0.2 % (0.0-6.0); HEMATOCRIT 38 % (39-51); HEMOGLOBIN 12.1 g/dL (13.5-17.5); LYMPHOCYTES # (AUTO) 1.1 /CMM (0.8-4.8); LYMPHOCYTES % (AUTO) 7.7 % (20.0-44.0); MEAN CORPUSCULAR HGB CONC 32 g/dl (31.0-36.0); MEAN CORPUSCULAR VOLUME 89 fL (80-96); MONOCYTES # (AUTO) 1.5 /CMM (0.1-1.30); MONOCYTES % (AUTO) 10.3 % (2.0-12.0); NEUTROPHILS # (AUTO) 11.9 /CMM (1.8-8.9); NEUTROPHILS % (AUTO) 81.5 % (43.0-81.0); PLATELET COUNT (AUTO) 96 /CMM (150-450); RED BLOOD CELL COUNT(AUTO) 4.22 MIL/uL (4.5-6.0); WHITE BLOOD COUNT (AUTO) 14.6 K/uL (4.3-11.0)
[2020-05-19 05:33] LABS: CALCIUM, SERUM 8.6 mg/dL (8.5-10.1); CREATININE 0.8 mg/dL (0.6-1.3); MAGNESIUM 2.3 mg/dL (1.8-2.4); PHOSPHORUS 2.7 mg/dL (2.5-4.9); POTASSIUM 3.4 mmol/L (3.5-5.1)
--- NOTE | 2020-05-19 06:52 | NUR ---
RN CLOSING NOTES Client remains stable at this time. No s/s of distress. No s/s of pain, client denies pain. The client remains slightly confused. All comfort measures are in place. Safety measures provided will endorse the incoming nurse for continuity of care.
--- NOTE | 2020-05-19 07:40 | NUR ---
BUSINESS ACCOUNT SPECIALIST/BJ OPENING NOTE RECEIVED PT IN STABLE CONDITION. PT IS ALERT, AWAKE AND ORIENTED TO NAME AND . PT IS ON TELE MONITORING WITH A-FIB NOTED. PT IS ON OXYGEN 2L VIA N/C SATURATING AT 99% AT THIS TIME. NO ACUTE DISTRESS OR SOB NOTED. PT HOB ELEVATED. PT'S COVID PCR IS PENDING. ALL SAFETY MEASURES TAKEN AND FOLLOWED. PT HAS A LAC 20' INTACT AND PATENT AND A RFA 20' INTACT AND PATENT AND FLUSHING WELL. PT NOTED WITH LEFT SIDED NOSE SCAB ( WOUND EVALUATION ORDERED). PT ALSO NOTED WITH A LEFT SECOND TOE SCAB. CALL LIGHT WITHIN REACH AND FUNCTIONING. BED LOCKED AND IN LOWEST POSITION. WILL CONTINUE TO MONITOR AND ASSESS PT.
--- NOTE | 2020-05-19 08:15 | NUR ---
RN NOTE DID A NURSING SWALLOW EVALUATION. PT IS UNABLE TO FOLLOW SWALLOW COMMAND AND POCKETS FOOD. PT KELP NPO PER MD'S ORDER. PT'S 0900 AM MEDS HELD DUE TO FALLING NURSING SWALLOW EVALUATION. SWALLOW EVULATION ORDERED AND PENDING. MD AND CHARGE NURSE AWARE. GOT NEW ORDERS FOR CARDIZEM AND DIGOXIN IV. ORDER FOLLOWED
[2020-05-19] MEDS: POTASSIUM CL. PREMIX PERIPHER. 50 ML IV SCH ×4 (08:47→12:32)
[2020-05-19] MEDS: ENOXAPARIN SODIUM 40 MG/0.4 ML DISP.SYRIN SQ SCH (08:56)
[2020-05-19] MEDS: DILTIAZEM HCL CD 240 MG PO SCH (09:00)
[2020-05-19] MEDS: GABAPENTIN 300 MG CAPSULE PO SCH ×3 (09:00→16:44)
[2020-05-19] MEDS: ASPIRIN EC 81 MG TABLET.DR PO SCH (09:00)
[2020-05-19] MEDS ORDERED: DIGOXIN INJ 0.5 MG/2 ML AMPUL IV ONE ×2 (10:00→13:00)
[2020-05-19] MEDS ORDERED: DILTIAZEM HCL 50 MG IV IV ONE (10:00)
[2020-05-19] MEDS ORDERED: VANCOMYCIN 1 GM in IV D5W 250 ML IV SCH (12:00)
[2020-05-19] MEDS: HALOPERIDOL 5 MG TABLET PO SCH ×3 (13:00→21:00)
[2020-05-19] MEDS ORDERED: DIGOXIN 0.25 MG TABLET PO SCH (13:00)
--- NOTE | 2020-05-19 13:50 | NUR ---
TN TELE/BJ NOTE GAVE REPORT TO NURSE ANGEL. PT TRANSFERRED TO ROOM 304 IN STABLE CONDITION. NO SOB OR ACUTE DISTRESS NOTED. ENDORSED TO ANGEL FOR GEOFFREY.
--- NOTE | 2020-05-19 14:00 | NUR ---
TELE/RN NOTE THE PATIENT IS RECEIVED IN BED FROM ICU. THE PATIENT IS ALERT AND ORIENTED X2. ABLE TO MAKE NEEDS KNOWN VERBALLY. DENIES PAIN. RECEIVING OXYGEN AT 2L/MIN VIA NASAL CANNULA AND DENIES SOB. RESPIRATION REGULAR AND UNLABORED. THE PATIENT IS IN NO APPARENT DISTRESS. APPLIED TELE BOX. LAC G 20 AND RFA G 20 BOTH ARE PATENT AND SALINE LOCKED. ORIENTATION PROVIDED TO THE ROOM/UNIT. BED LOW AND LOCKED. SIDE RAILS UP X3. CALL LIGHT WITHIN REACH. WILL CONTINUE TO MONITOR.
[2020-05-19] MEDS: BENZTROPINE MESYLATE (1 MG) 1 MG TABLET PO SCH (16:44)
[2020-05-19] MEDS: IV NS 0.9% 1,000 ML IV PRN (17:34)
[2020-05-19] MEDS ORDERED: PIPERACILLIN /TAZOBACTAM 3.375 G in IV D5W 50 ML IV ONE (18:00)
--- NOTE | 2020-05-19 18:26 | NUR ---
TELE/RN NOTE THE PATIENT IS ALERT AND ORIENTED X2. RECEIVING OXYGEN AT 2L/MIN VIA NASAL CANNULA AND SATURATION IS AT 95%. DENIES SOB. RESPIRATION REGULAR AND UNLABORED. DENIES PAIN. THE PATIENT IS IN NO APPARENT DISTRESS. BEVERLY CATH PRESENT AND DRAINING CLEAR, YELLOW COLOR URINE. NO BLADDER DISTENSION NOTED. TELE BOX READING IS UNCONTROLLED AFIB. PATIENT NPO. LAC G 20 PATENT AND SALINE LOCKED. RFA G 20 PATENT AND NS INFUSING AT 75ML/HR AND NO S/S INFILTRATION NOTED. BED LOW AND LOCKED. SIDE RAILS UP X3. CALL LIGHT WITHIN REACH. WILL ENDORSE TO ROAD INSPECTOR.
--- NOTE | 2020-05-19 19:30 | NUR ---
telephone sales agent opening note received patient in bed. aox2, confused. on oxygen 2l/min via nasal cannula, no resp dstress. no c/o pain. external tele reads uncontrolled afib hr 107. in no apparent distress. iv access in lac and rfa running ns@75ml/hr. campbell catheter is present, draining to gravity. bed is low and locked hob elevated in semi enciso,s side rials up x2. call light within reach.w ill continue to monitor.
[2020-05-19] MEDS ORDERED: CEFTRIAXONE 1 G in IV D5W 50 ML IV SCH (20:00)
--- NOTE | 2020-05-19 22:16 | NUR ---
telesales manager note called guest relations coordinator md dr. meyers to inform him patient is npo d/t failed nursing swallow during day shift. patient has haldol ordered MD telephone order hold dose. order read back noted and carried out.
[2020-05-19] MEDS: PIPERACILLIN /TAZOBACTAM 3.375 G in IV D5W 100 ML IV SCH (23:17)
[2020-05-20] VITALS: BP 124/72
[2020-05-20] MEDS ORDERED: VANCOMYCIN 0.75 GM in IV D5W 250 ML IV SCH ×2
[2020-05-20 04:00] VITALS: BP 135/95
[2020-05-20 04:25] VITALS: BP 135/95
[2020-05-20 06:45] LABS: BASOPHILS % (AUTO) 0.4 % (0.0-2.0); EOSINOPHILS % (AUTO) 0.3 % (0.0-6.0); HEMATOCRIT 37 % (39-51); LYMPHOCYTES # (AUTO) 1.3 /CMM (0.8-4.8); LYMPHOCYTES % (AUTO) 15.4 % (20.0-44.0); MEAN CORPUSCULAR HGB CONC 33 g/dl (31.0-36.0); MEAN CORPUSCULAR VOLUME 90 fL (80-96); MONOCYTES # (AUTO) 0.9 /CMM (0.1-1.30); MONOCYTES % (AUTO) 10.5 % (2.0-12.0); NEUTROPHILS # (AUTO) 6.3 /CMM (1.8-8.9); NEUTROPHILS % (AUTO) 73.4 % (43.0-81.0); PLATELET COUNT (AUTO) 114 /CMM (150-450); RED BLOOD CELL COUNT(AUTO) 4.11 MIL/uL (4.5-6.0); WHITE BLOOD COUNT (AUTO) 8.6 K/uL (4.3-11.0)
[2020-05-20 07:16] LABS: MAGNESIUM 2.3 mg/dL (1.8-2.4); PHOSPHORUS 2.2 mg/dL (2.5-4.9); POTASSIUM 4.1 mmol/L (3.5-5.1)
--- NOTE | 2020-05-20 07:30 | NUR ---
television parts tester closing note patient in bed. aox2, confused. on room air d/t continously removing o2, no resp distress. no c/o pain. external tele reads uncontrolled afib. no distress. iv access maintained running ns@75ml/hr. campbell catheter is maintained, draining to gravity. bed remains low and locked hob elevated in semi enciso,s side rials up x2. call light within reach. will endorse to next shift.
[2020-05-20 07:35] LABS: CREATININE 0.9 mg/dL (0.6-1.3)
[2020-05-20 08:00] VITALS: BP 141/91
--- NOTE | 2020-05-20 08:00 | NUR ---
MS RN NOTES PATIENT IN BED RESTING. NO SOB OR ACUTE DISTRESS NOTED. PATIENT ALERT, ORIENTED X1 CONFUSED. SAFETY MEASURES IN PLACE. WILL CONTINUE TO MONITOR.
[2020-05-20] MEDS: PIPERACILLIN /TAZOBACTAM 3.375 G in IV D5W 100 ML IV SCH ×3 (08:14→23:37)
[2020-05-20] MEDS: ENOXAPARIN SODIUM 40 MG/0.4 ML DISP.SYRIN SQ SCH (08:19)
[2020-05-20] MEDS: GABAPENTIN 300 MG CAPSULE PO SCH ×3 (09:00→17:28)
[2020-05-20] MEDS: HALOPERIDOL 5 MG TABLET PO SCH ×4 (09:00→23:34)
[2020-05-20] MEDS: ASPIRIN EC 81 MG TABLET.DR PO SCH (09:00)
[2020-05-20] MEDS: BENZTROPINE MESYLATE (1 MG) 1 MG TABLET PO SCH ×2 (09:00→17:28)
[2020-05-20] MEDS: DILTIAZEM HCL CD 240 MG PO SCH (09:00)
[2020-05-20] MEDS ORDERED: K PHOS NEUTRAL 250 MG TABLET PO ONE (11:00)
[2020-05-20] MEDS: DIGOXIN INJ 0.5 MG/2 ML AMPUL IV SCH (12:19)
--- NOTE | 2020-05-20 12:19 | NUR ---
MS RN NOTES ADMINISTERED DIGOXIN IV, PATIENT PLACED ON TELE FOR MONITORING. WILL CONTINUE TO MONITOR.
[2020-05-20] MEDS ORDERED: Sodium Phosphate 30 MMOL in IV NS 0.9% 250 ML IV SCH (13:00)
[2020-05-20 13:09] LABS: BAND % (MANUAL) 5 % (0.0-5.0); LYMPHOCYTES % (MANUAL) 9 % (16-48); MONOCYTES % (MANUAL) 10 % (0-11.0); MYELOCYTES % 3 % (0-0); NEUTROPHILS % (MANUAL) 73 (42-76)
--- NOTE | 2020-05-20 15:30 | NUR ---
MS RN NOTES INSERTED NG TUBE ORDERED, PATIENT TOLERATED PROCEDURE WELL.
[2020-05-20 16:00] VITALS: BP 140/96
[2020-05-20] MEDS: MUPIROCIN OINT 2% 22 GM TUBE NS SCH ×2 (18:00→23:37)
--- NOTE | 2020-05-20 19:21 | NUR ---
MS/RN OPENING NOTES RECEIVED PATIENT IN BED , AWAKE, AND PULLED OUT THE NG TUBE WHILE HE WAS DOING SOME HYGIENE CARE, ON SOFT RESTRAINT DUE TO PULLING OUT TUBES. PATIENT CAN RESPOND TO NURSE AND ABLE TO SPEAK FEW WORDS, ON ROOM AIR, RESPIRATIONS EVEN AND UNLABORED, SKIN WARM TO TOUCH, BEVERLY CATHETER DRAINING YELLOW COLORED URINE, MONITORING FOR ANY CHANGES LEFT AC WITH IV NS AT 75 ML/HR., RECEIVED ENDORSEMENT FROM AM RN FOR GEOFFREY. BED LOCKED, CALL LIGHTS WITHIN REACH. WILL MONITOR.
--- NOTE | 2020-05-20 19:25 | NUR ---
MS RN NOTES PATIENT IN BED RESTING NO SOB OR ACUTE DISTRESS NOTED. PATIENT NOTED WITH NG TUBE IN HIS HAND. PATIENT REMOVED HIS NG TUBE. ALL DUE MEDICATIONS ADMINISTERED, ALL NEEDS MET. ENDORSED CARE TO PM SHIFT AND TO REINSERT NG TUB FOR MEDICATIONS ONLY. ORDERS OBTAINED FOR RESTRAINTS DUE TO PATIENT PULLING TUBES.
[2020-05-20 20:00] VITALS: BP 137/66
--- NOTE | 2020-05-20 20:00 | NUR ---
ng tube placed and placement to confirm with chest xray per md order.
[2020-05-20] MEDS: IV NS 0.9% 1,000 ML IV PRN (22:54)
[2020-05-20] MEDS: DOXYCYCLINE HYCLATE (100 MG) 100 MG TABLET PO SCH (23:34)
--- NOTE | 2020-05-21 06:14 | NUR ---
304-2 MS/RN NOTES PATIENT ABLE TO SLEEP FEW HOURS, ALERT X2, ABLE TO COOPERATE WITH CARE BUT REMOVES NG TUBING, REINSERTED, ATTENDED ALL NEEDS,RESPIRATIONS EVENM AND UNLABORED, MONITORED FOR ANY CHANGES, BED LOCKED, CALL LIGHTS WITHIN REACH, IV FLUIDS INFUSING, WILL ENDORSE TO AM RN FOR GEOFFREY,
[2020-05-21 06:26] LABS: BASOPHILS % (AUTO) 0.7 % (0.0-2.0); EOSINOPHILS % (AUTO) 0.6 % (0.0-6.0); HEMATOCRIT 37 % (39-51); HEMOGLOBIN 11.8 g/dL (13.5-17.5); LYMPHOCYTES # (AUTO) 1.5 /CMM (0.8-4.8); LYMPHOCYTES % (AUTO) 21.6 % (20.0-44.0); MEAN CORPUSCULAR HGB CONC 32 g/dl (31.0-36.0); MEAN CORPUSCULAR VOLUME 90 fL (80-96); MONOCYTES # (AUTO) 0.8 /CMM (0.1-1.30); MONOCYTES % (AUTO) 11.7 % (2.0-12.0); NEUTROPHILS # (AUTO) 4.4 /CMM (1.8-8.9); NEUTROPHILS % (AUTO) 65.4 % (43.0-81.0); PLATELET COUNT (AUTO) 122 /CMM (150-450); RED BLOOD CELL COUNT(AUTO) 4.11 MIL/uL (4.5-6.0); WHITE BLOOD COUNT (AUTO) 6.7 K/uL (4.3-11.0)
[2020-05-21 07:18] LABS: CALCIUM, SERUM 8.5 mg/dL (8.5-10.1); CREATININE 0.8 mg/dL (0.6-1.3); MAGNESIUM 2.2 mg/dL (1.8-2.4); PHOSPHORUS 2.9 mg/dL (2.5-4.9); POTASSIUM 3.3 mmol/L (3.5-5.1)
--- NOTE | 2020-05-21 07:56 | NUR ---
MS/RN Opening note Patient received from shift engineer. A/O X1-2, vital signs stable, no fevers. NGT to right nare, to be used for medication administration and feeding once ordered. Placement confirmed. IV fluids infusing at 75ml/hr via left AC heplock, no signs of infiltration seen. Bed in low setting, side rails X3 in upright position, brakes locked. Call light within reach, bed alarm switched on. Will continue to monitor and ensure safety.
[2020-05-21 08:00] VITALS: BP 141/100
[2020-05-21] MEDS: ASPIRIN EC 81 MG TABLET.DR PO SCH (08:35)
[2020-05-21] MEDS: DOXYCYCLINE HYCLATE (100 MG) 100 MG TABLET PO SCH ×2 (08:35→21:11)
[2020-05-21] MEDS: GABAPENTIN 300 MG CAPSULE PO SCH ×3 (08:35→16:36)
[2020-05-21] MEDS: HALOPERIDOL 5 MG TABLET PO SCH ×4 (08:36→21:11)
[2020-05-21] MEDS: BENZTROPINE MESYLATE (1 MG) 1 MG TABLET PO SCH ×2 (08:36→16:36)
[2020-05-21] MEDS: DILTIAZEM HCL CD 240 MG PO SCH (08:36)
[2020-05-21] MEDS: ENOXAPARIN SODIUM 40 MG/0.4 ML DISP.SYRIN SQ SCH (08:37)
[2020-05-21] MEDS: PIPERACILLIN /TAZOBACTAM 3.375 G in IV D5W 100 ML IV SCH ×2 (08:38→16:37)
[2020-05-21] MEDS: MUPIROCIN OINT 2% 22 GM TUBE NS SCH ×2 (08:42→21:12)
--- NOTE | 2020-05-21 09:15 | NUR ---
MS/RN NGT removed Patient noted to be without NGT. Dr Parry informed, leave out for now and wait for speech therapist to re-evaluate.
--- NOTE | 2020-05-21 09:34 | NUR ---
WOUND CARE CONSULT: PT PRESENTS WITH DRY LESION TO LEFT SIDE OF NOSE, PRESENT ON ADMISSION. RECOMMEND SURGICAL CONSULT. DR SAM NOTIFIED OF CONSULT REQUEST. RECOMMENDATIONS MADE FOR SKIN PROTECTION. DISCUSSED WITH NURSING STAFF. WILL SEE PRN. MARROQUIN AGREEMENT WITH PLAN OF CARE. Addendum: 05/21/20 at 0936 by ZA YEE WNDNU Amended: Links added.
--- NOTE | 2020-05-21 09:49 | NUR ---
MS/RN Speech therapy eval Seen by - bedside swallow evaluation passed, puree diet ordered, strict aspiration precaution.
--- NOTE | 2020-05-21 10:26 | NUR ---
MS/RN S/B Dr Parry Seen by Dr Parry - will talk to case management about placement. Continue with puree diet, strict aspiration precautions.
[2020-05-21] MEDS: POTASSIUM CHLORIDE 20 MEQ TAB.PRT.SR PO SCH ×3 (11:48→14:00)
[2020-05-21] MEDS: DIGOXIN INJ 0.5 MG/2 ML AMPUL IV SCH (11:58)
--- NOTE | 2020-05-21 12:42 | NUR ---
MS/RN Medications Assisted with lunch, only 5% eaten, remains high risk of aspiration.
--- NOTE | 2020-05-21 15:10 | NUR ---
Spoke with Saniya at [facility] ctr [phone], made aware patient is coming back to [facility] today. Clinicals faxed to [facility], ambulance arrange eta 7pm. Spoke with friend Juanita- [phone], aware and agreed with current dc plan. Addendum: 05/21/20 at 1855 by CHITRA BARCLAY RN Amended: Links added.
--- NOTE | 2020-05-21 15:17 | NUR ---
MS/cloth printer Dr Parry made aware that patient only able to eat two to three spoonfuls of lunch and that he required for mouth to be suctioned after eating as pocketing food. Awaiting call back and further orders to find out if discharge to be held or still safe to leave.
[2020-05-21 16:00] VITALS: BP 139/76
--- NOTE | 2020-05-21 17:54 | NUR ---
MS/RN Hold discharge Call received from Dr Parry - discharge to be held.
--- NOTE | 2020-05-21 18:00 | NUR ---
MS/RN S/B ID Seen by SAE ramirez discontinued, new order wrote for amoxicillin.
--- NOTE | 2020-05-21 18:08 | NUR ---
MS/RN End note Patient remains in stable condition, will endorse to rivet passer.
--- NOTE | 2020-05-21 19:07 | NUR ---
discharge is cancelled due to patient was not able to tolerate po and need to re-eval for possible GT need. Ambulance placed on will call. Addendum: 05/21/20 at 1911 by CHITRA BARCLAY RN Amended: Links added.
--- NOTE | 2020-05-21 19:10 | NUR ---
discharge is cancelled due to patient was not able to tolerate po and need to re-eval for possible GT need. Ambulance placed on will call. Namrata stewart. Addendum: 05/21/20 at 1911 by CHITRA BARCLAY RN Amended: Links added.
--- NOTE | 2020-05-21 19:51 | NUR ---
MS/RN OPENING NOTES RECEIVED PATIENT IN BED, AWAKE, ALERT X2, ABLE TO FOLLOW SIMPLE COMMANDS, BUT REQUIRE REORIENTATION AND NEED RESTRAINTS PATIENT NOT SAFE AND PULLING OUT IV AND WANTING TO GET OUT OF BED. ON ROOM AIR, RESPIRATIONS EVEN AND UNLABORED, BED LOCKED, CALL LIGHTS WITHIN REACH, BED ALARM ON, ON IV NS INFUSING AT 75 ML/HR, PATIENT TO MONITOR SAFETY AND ASPIRATIONS PRECAUTIONS PATIENT REMOVED NG TUBE AND MD AWARE AND TO START WITH PUREED BUT MONITOR POCKETING AND WAS TO MONITOR, UNABLE TO BE DC PATIENT AT RISK FOR ASPIRATIONS TO MONITOR.RECEIVED ENDORSEMENT FROM AM RN FOR GEOFFREY,
[2020-05-21 20:00] VITALS: BP 139/99
--- NOTE | 2020-05-21 20:30 | NUR ---
MS/RN NOTES RECEIVED CALL FROM RN [facility] ACCEPTING PATIENT AND WANT TO KNOW STATUS REGARDING PENDING DISCHARGE, INFORMED PER MD TO HOLD DC TONIGHT TO FOLLOW UP ANY FURTHER RECOMMENDATIONS IN AM PATIENT REQUIRE SAFETY WITH ORAL MED AND FOOD DUE TO POCKETING OF FOOD.
[2020-05-21] MEDS: AMOXICILLIN TRIHYDRATE 250 MG CAPSULE PO SCH (21:12)
--- NOTE | 2020-05-21 21:26 | NUR ---
MS/RN NOTES PATIENT OBSERVED WITH POCKETING OF OOD AFTER KEPT PATIENT HOB AND GIVEN SOME WATER , MEDICATION WAS CRUSHED AND MIXED WITH APPLE SAUCE,TO FOLLOW UP CONCERNS AND RECOMMENDATION,
[2020-05-22] MEDS: IV NS 0.9% 1,000 ML IV PRN (02:59)
--- NOTE | 2020-05-22 06:08 | NUR ---
304-2 MS/RN NOTES PATIENT ALERT, ORIENTED X2, ABLE TO SLEEP DURING THE NIGHT, MONITORED FOR SAFETY ATTENDED ALL NEEDS, REPOSITONED FOR COMFORT, IV HYDRATION AT 75 ML/HR PATENT IV SITE, ON PUREED DIET FED,PO MEDS CRUSHED BUTWITH POCKETING, MONITORED, BED LOCKED, CALL LIGHTS WITHIN REACH, BED ALARM N, RESTRAIN SOF FOR SAFETY,WILL ENDORSE TO AM RN FOR GEOFFREY.
[2020-05-22 06:26] LABS: BASOPHILS % (AUTO) 0.5 % (0.0-2.0); EOSINOPHILS % (AUTO) 0.4 % (0.0-6.0); HEMATOCRIT 39 % (39-51); HEMOGLOBIN 12.6 g/dL (13.5-17.5); LYMPHOCYTES # (AUTO) 1.4 /CMM (0.8-4.8); LYMPHOCYTES % (AUTO) 21.4 % (20.0-44.0); MEAN CORPUSCULAR HGB CONC 32 g/dl (31.0-36.0); MEAN CORPUSCULAR VOLUME 89 fL (80-96); MONOCYTES # (AUTO) 0.6 /CMM (0.1-1.30); MONOCYTES % (AUTO) 10.1 % (2.0-12.0); NEUTROPHILS # (AUTO) 4.3 /CMM (1.8-8.9); NEUTROPHILS % (AUTO) 67.6 % (43.0-81.0); PLATELET COUNT (AUTO) 135 /CMM (150-450); RED BLOOD CELL COUNT(AUTO) 4.37 MIL/uL (4.5-6.0); WHITE BLOOD COUNT (AUTO) 6.4 K/uL (4.3-11.0)
[2020-05-22 06:34] LABS: CALCIUM, SERUM 8.3 mg/dL (8.5-10.1); CREATININE 0.7 mg/dL (0.6-1.3); PHOSPHORUS 1.9 mg/dL (2.5-4.9); POTASSIUM 3.7 mmol/L (3.5-5.1)
--- NOTE | 2020-05-22 07:39 | NUR ---
MS RN OPENING NOTES RECEIVED PATIENT IN BED, A/O X1. PATIENT BREATHING ON ROOM AIR; BREATHING IS EVEN AND UNLABORED; NO SOB PRESENT AT THIS TIME. NO COMPLAINS OF PAIN. LAC IV ACCESS G # 20 INFUSING NS @ 75 MLS/HR. PATIENT HAS MEDICAL SOFT WRIST RESTRAINS ON FOR SAFETY REASONS. SAFETY PRECAUTIONS IN PLACE; BED IN LOW POSITION AND LOCKED, RAILS UP X2, CALL LIGHT WITHIN REACH. WILL CONTINUE TO MONITOR PATIENT.
[2020-05-22 08:00] VITALS: BP 151/103
[2020-05-22] MEDS: HALOPERIDOL 5 MG TABLET PO SCH ×4 (09:00→21:00)
[2020-05-22] MEDS: DILTIAZEM HCL CD 240 MG PO SCH (09:00)
[2020-05-22] MEDS: AMOXICILLIN TRIHYDRATE 250 MG CAPSULE PO SCH ×2 (09:00→16:02)
[2020-05-22] MEDS: GABAPENTIN 300 MG CAPSULE PO SCH ×3 (09:00→16:03)
[2020-05-22] MEDS: DOXYCYCLINE HYCLATE (100 MG) 100 MG TABLET PO SCH ×2 (09:00→21:00)
[2020-05-22] MEDS: ASPIRIN EC 81 MG TABLET.DR PO SCH (09:00)
[2020-05-22] MEDS: BENZTROPINE MESYLATE (1 MG) 1 MG TABLET PO SCH ×2 (09:00→16:03)
[2020-05-22] MEDS: MUPIROCIN OINT 2% 22 GM TUBE NS SCH ×2 (09:18→21:10)
--- NOTE | 2020-05-22 09:58 | NUR ---
MS RN NOTES PATIENT FAILED SWALLOW EVAL YESTERDAY. AWAITING DOC DECISION ON NG TUBE VS G-TUBE PLACEMENT.
[2020-05-22] MEDS: ENOXAPARIN SODIUM 40 MG/0.4 ML DISP.SYRIN SQ SCH (10:02)
[2020-05-22 10:43] LABS: BAND % (MANUAL) 4 % (0.0-5.0); LYMPHOCYTES % (MANUAL) 15 % (16-48); MONOCYTES % (MANUAL) 11 % (0-11.0); MYELOCYTES % 3 % (0-0); NEUTROPHILS % (MANUAL) 67 (42-76)
[2020-05-22] MEDS: DIGOXIN INJ 0.5 MG/2 ML AMPUL IV SCH (13:20)
[2020-05-22] MEDS ORDERED: NEUTRA PHOS 1 POWD.PACKET PO ONE (14:00)
--- NOTE | 2020-05-22 14:08 | NUR ---
MS RN NOTES AWAITING MD DECISION ON PEG. PATIENT FAILED SWALLOW EVAL.
[2020-05-22 16:00] VITALS: BP 137/81
--- NOTE | 2020-05-22 18:47 | NUR ---
MS RN CLOSING NOTES PATIENT IN BED, A/O X1. PATIENT BREATHING ON ROOM AIR; BREATHING IS EVEN AND UNLABORED; NO SOB PRESENT DURING THE SHIFT. NO COMPLAINS OF PAIN. LAC IV ACCESS G # 20 INFUSING NS @ 75 MLS/HR. DURING SHIFT PATIENT ON MEDICAL SOFT WRIST RESTRAINS ON FOR SAFETY REASONS. PEG PLACEMENT SCHEDULED FOR TOMORROW. ALL NEEDS ATTENDED THROUGHOUT THE DAY. SAFETY PRECAUTIONS IN PLACE; BED IN LOW POSITION AND LOCKED, RAILS UP X2, CALL LIGHT WITHIN REACH. WILL ENDORSE TO INSPECTOR CONVEYOR LINE NURSE.
--- NOTE | 2020-05-22 19:35 | NUR ---
MS RN NOTES RECEIVED ON BED OF FOWLERS POSITION,ALERT,ORIENTED X1,TALK LOUD,NOTED SKIN ABRASION ON THE NOSE,S/P FALL AT THE FACILITY.ON BILATERAL SOFT WRIST RESTRAINTS FOR SAFETY,TRYING TO PULL OUT IV TUBINGS.FALL RISK,BED ALARM TRIGGERED,BED ON LOWEST POSITION AND LOCKED.IVF NS 75ML/HR RATE INFUSING WELL ON LEFT AC VIA IV PUMP.DVT PUMP IN USED OB BOTH LOWER EXTREMITIES AND ON LOVENOX SQ FOR DVT SCORE OF 3.NPO STATUS,FOR PEG PLACEMENT TOMORROW BY DR REES.NO FAMILY MEMBER TO SIGN CONSENT.DR CALVILLO TO WRITE NOTES,CONSENTING OF THE SURGERY.
[2020-05-22 20:00] VITALS: BP 143/87
--- NOTE | 2020-05-22 22:00 | NUR ---
MS RN NOTES AWAKE,CALM AND QUIET ON BED,BREATHING EASY,NO SOB.REPOSITION PER PROTOCOL.WILL CONTINUE TO MONITOR.
--- NOTE | 2020-05-23 02:00 | NUR ---
MS RN NOTES SOUND ASLEEP,KEPT WARM AND COMFORTABLE.
--- NOTE | 2020-05-23 06:23 | NUR ---
MS RN NOTES ON BED SLEEPING,AROUSABLE TO VERBAL STIMULI.KEPT NPO,GOING FOR PEG PLACEMENT TODAY BY DR REES.CONSENT AWAITING FOR DR CALVILLO'S NOTE,PATIENT NO FAMILY MEMBER,ONLY NEIGHBOR FOR SO MANY YEARS.IVF IN PROGRESS ON LEFT AC VIA IV PUMP.BILATERAL SOFT WRIST RESTRAINTS IN PLACE,NO OCCLUSION NOTED.BEVERLY CATH IN PLACE DRAINING YELLOWISH URINE OUTPUT.WILL ENDORSE TO DAY NURSE FOR GEOFFREY.
[2020-05-23 06:52] LABS: BASOPHILS # (AUTO) 0.1 /CMM (0.0-0.2); BASOPHILS % (AUTO) 0.6 % (0.0-2.0); EOSINOPHILS % (AUTO) 0.2 % (0.0-6.0); HEMATOCRIT 45 % (39-51); HEMOGLOBIN 14.5 g/dL (13.5-17.5); LYMPHOCYTES # (AUTO) 1.4 /CMM (0.8-4.8); LYMPHOCYTES % (AUTO) 14.5 % (20.0-44.0); MEAN CORPUSCULAR HGB CONC 32 g/dl (31.0-36.0); MEAN CORPUSCULAR VOLUME 89 fL (80-96); MONOCYTES # (AUTO) 0.9 /CMM (0.1-1.30); MONOCYTES % (AUTO) 9.7 % (2.0-12.0); NEUTROPHILS # (AUTO) 7.2 /CMM (1.8-8.9); PLATELET COUNT (AUTO) 135 /CMM (150-450); RED BLOOD CELL COUNT(AUTO) 5.06 MIL/uL (4.5-6.0); WHITE BLOOD COUNT (AUTO) 9.6 K/uL (4.3-11.0)
[2020-05-23 07:19] LABS: CALCIUM, SERUM 8.8 mg/dL (8.5-10.1); CREATININE 0.6 mg/dL (0.6-1.3); MAGNESIUM 2.2 mg/dL (1.8-2.4); POTASSIUM 3.7 mmol/L (3.5-5.1)
--- NOTE | 2020-05-23 07:30 | NUR ---
RN OPENING NOTES PATIENT IN BED RESTING. RESPONSIVE, A/0X1-2. NOT IN ANY FORM OF DISTRESS. NO SOB. DENIED PAIN OR DISCOMFORT AT THIS TIME. IV ACCESS INTACT AND PATENT. KEPT PATIENT SAFE AND COMFORTABLE. BED IN LOW/LOCKED POSITION. SIDERAILS UPX2,CALL LIGHT IN REACH. WILL MONITOR ACCORDINGLY. Addendum: 05/23/20 at 0750 by TALA SHAIKH NOTED WITH JILLIAN SOFT WRIST RESTRAINTS FOR SAFETY. CIRCULATIONS CHECKED, NO COMPLICATIONS.
[2020-05-23 07:43] LABS: BAND % (MANUAL) 1 % (0.0-5.0); EOSINOPHILS % (MANUAL) 1 % (0-4); LYMPHOCYTES % (MANUAL) 15 % (16-48); MONOCYTES % (MANUAL) 7 % (0-11.0); MYELOCYTES % 2 % (0-0); NEUTROPHILS % (MANUAL) 74 (42-76)
[2020-05-23 08:00] VITALS: BP 140/95
[2020-05-23] MEDS: ASPIRIN EC 81 MG TABLET.DR PO SCH (09:00)
[2020-05-23] MEDS: BENZTROPINE MESYLATE (1 MG) 1 MG TABLET PO SCH ×2 (09:00→16:32)
[2020-05-23] MEDS: GABAPENTIN 300 MG CAPSULE PO SCH ×3 (09:00→16:33)
[2020-05-23] MEDS: AMOXICILLIN TRIHYDRATE 250 MG CAPSULE PO SCH ×2 (09:00→16:32)
[2020-05-23] MEDS: ENOXAPARIN SODIUM 40 MG/0.4 ML DISP.SYRIN SQ SCH (09:00)
[2020-05-23] MEDS: DOXYCYCLINE HYCLATE (100 MG) 100 MG TABLET PO SCH ×2 (09:00→21:00)
[2020-05-23] MEDS: HALOPERIDOL 5 MG TABLET PO SCH ×4 (09:00→21:00)
[2020-05-23] MEDS: DILTIAZEM HCL CD 240 MG PO SCH (09:00)
--- NOTE | 2020-05-23 09:00 | NUR ---
RN NOTES SURGERY TEAM REFUSED TO TAKE PATIENT TO OR DUE TO NO CONSENT WAS SIGNED. TALKED TO OR NURSE PALMIRA AND EXPLAINED THAT PATIENT HAS NO FAMILY AND PATIENT IS CONFUSED. PER CHARGE NURSE, 's PROGRESS NOTES WILL SUFFICE SINCE MD WROTE "PEG TO PREVENT MAJOR MORBIDITY OR MORTALITY. OK TO PROCEED. DEFER TO GI".. ATTENDING PROVIDER, CRYPTOGRAPHIC MACHINE OPERATOR AND TAMI WAS NOTIFIED. PER OR NURSE, SURGEON WILL COME BACK THIS AFTERNOON.
[2020-05-23] MEDS: MUPIROCIN OINT 2% 22 GM TUBE NS SCH ×2 (10:24→21:03)
[2020-05-23] MEDS: DIGOXIN INJ 0.5 MG/2 ML AMPUL IV SCH (14:14)
[2020-05-23 16:00] VITALS: BP 143/94
[2020-05-23] MEDS ORDERED: K PHOS NEUTRAL 250 MG TABLET PO ONE (16:30)
--- NOTE | 2020-05-23 16:33 | NUR ---
rn notes PO meds held today, npo, for surgery
[2020-05-23] MEDS: IV NS 0.9% 1,000 ML IV PRN (17:50)
--- NOTE | 2020-05-23 18:45 | NUR ---
RN CLOSING NOTES PATIENT IN STABLE CONDITION. ALL NEEDS ATTENDED AND PROVIDED. KEPT PATIENT SAFE AND COMFORTABLE. BED IN LOW/LOCKED POSITION. ON JILLIAN SOFT RESTRAINTS, CIRCULATIONS CHECKED, NO COMPLICATIONS. SIDERAILS UPX2, CALL LIGHT IN REACH. WILL ENDORSE ACCORDINGLY. Addendum: 05/23/20 at 1847 by TALA SHAIKH ON BILATERAL SOFT WRIST RESTRAINTS
--- NOTE | 2020-05-23 19:30 | NUR ---
MS RN NOTES RECEIVED ON BED A/O X1-2,BREATHING EASY,NO SOB,IVF NA 75ML/HR RATE IN PROGRESS ON LEFT AC VIA IV PUMP.ON BILATERAL SOFT WRIST RESTRAINTS FOR SAFETY,TRYING TO PULL OUT IV TUBING.DVT PUMP IN USED FOR DVT PROPHYLAXIS.FALL PRECAUTION OBSERVED,BED ALARM,BED ON LOWEST POSITION AND LOCKED.BEVERLY CATH IN PLACE DRAINING YELLOWISH OUTPUT.CALL LIGHT IN REACH,WILL CONTINUE TO MONITOR .
[2020-05-23 20:00] VITALS: BP 153/87
--- NOTE | 2020-05-24 06:36 | NUR ---
MS RN NOTES SLEPT WELL AT NIGHT.NO SIGNIFICANT CHANGE IN STATUS.REMAINS NPO,AWAITING INFORMED CONSENT FOR PEG PLACEMENT.IN NO ACUTE DISTRESS.BILATERAL WRIST RESTRAINT IN USED AND RENEWED.WILL ENDORSE TO DAY NURSE FOR GEOFFREY.
--- NOTE | 2020-05-24 07:20 | NUR ---
RN OPENING NOTES PATIENT IN BED RESTING. RESPONSIVE, A/0X1-2. ON JILLIAN SOFT WRIST RESTRAINTS, CIRCULATIONS CHECKED, NO COMPLICATIONS. NOT IN ANY FORM OF DISTRESS. NO SOB. DENIED PAIN OR DISCOMFORT AT THIS TIME. IV ACCESS INTACT AND PATENT. KEPT PATIENT SAFE AND COMFORTABLE. BED IN LOW/LOCKED POSITION. SIDERAILS UPX2,CALL LIGHT IN REACH. WILL MONITOR ACCORDINGLY.
[2020-05-24 07:38] LABS: BASOPHILS # (AUTO) 0.1 /CMM (0.0-0.2); BASOPHILS % (AUTO) 0.5 % (0.0-2.0); EOSINOPHILS % (AUTO) 0.1 % (0.0-6.0); HEMATOCRIT 44 % (39-51); LYMPHOCYTES % (AUTO) 8.1 % (20.0-44.0); MEAN CORPUSCULAR HGB CONC 32 g/dl (31.0-36.0); MEAN CORPUSCULAR VOLUME 90 fL (80-96); MONOCYTES # (AUTO) 0.8 /CMM (0.1-1.30); MONOCYTES % (AUTO) 6.9 % (2.0-12.0); NEUTROPHILS # (AUTO) 10.5 /CMM (1.8-8.9); NEUTROPHILS % (AUTO) 84.4 % (43.0-81.0); PLATELET COUNT (AUTO) 135 /CMM (150-450); RED BLOOD CELL COUNT(AUTO) 4.84 MIL/uL (4.5-6.0); WHITE BLOOD COUNT (AUTO) 12.4 K/uL (4.3-11.0)
[2020-05-24 07:50] LABS: CALCIUM, SERUM 8.4 mg/dL (8.5-10.1); CREATININE 0.7 mg/dL (0.6-1.3); MAGNESIUM 2.1 mg/dL (1.8-2.4); PHOSPHORUS 2.1 mg/dL (2.5-4.9); POTASSIUM 3.4 mmol/L (3.5-5.1)
[2020-05-24 08:00] VITALS: BP 144/98
[2020-05-24] MEDS: ASPIRIN EC 81 MG TABLET.DR PO SCH (09:00)
[2020-05-24] MEDS: HALOPERIDOL 5 MG TABLET PO SCH ×4 (09:00→20:30)
[2020-05-24] MEDS: DOXYCYCLINE HYCLATE (100 MG) 100 MG TABLET PO SCH ×2 (09:00→20:31)
[2020-05-24] MEDS: BENZTROPINE MESYLATE (1 MG) 1 MG TABLET PO SCH ×2 (09:00→16:27)
[2020-05-24] MEDS: AMOXICILLIN TRIHYDRATE 250 MG CAPSULE PO SCH ×2 (09:00→16:27)
[2020-05-24] MEDS: ENOXAPARIN SODIUM 40 MG/0.4 ML DISP.SYRIN SQ SCH (09:00)
[2020-05-24] MEDS: GABAPENTIN 300 MG CAPSULE PO SCH ×3 (09:00→16:28)
[2020-05-24] MEDS: DILTIAZEM HCL CD 240 MG PO SCH (09:00)
--- NOTE | 2020-05-24 09:02 | NUR ---
called Dr Munguia and verified if patient is going to surgery. Per MD, "I will try.". also order to keep patient NPO. Orders noted.
[2020-05-24] MEDS: MUPIROCIN OINT 2% 22 GM TUBE NS SCH ×2 (09:27→20:30)
--- NOTE | 2020-05-24 09:41 | NUR ---
lovenox held, patient for surgery
[2020-05-24 09:51] LABS: LYMPHOCYTES % (MANUAL) 14 % (16-48); MONOCYTES % (MANUAL) 4 % (0-11.0); NEUTROPHILS % (MANUAL) 82 (42-76)
[2020-05-24] MEDS: POTASSIUM CL. PREMIX PERIPHER. 50 ML IV SCH ×2 (10:01→11:22)
[2020-05-24] MEDS: IV NS 0.9% 1,000 ML IV PRN ×2 (10:05→23:18)
[2020-05-24] MEDS: DIGOXIN INJ 0.5 MG/2 ML AMPUL IV SCH (13:16)
[2020-05-24] MEDS ORDERED: Sodium Phosphate 15 MMOL in IV NS 0.9% 245 ML IV SCH (14:30)
--- NOTE | 2020-05-24 16:00 | NUR ---
RN NOTES OR nurse Michel called and informed nurse that patient is having surgery tomorrow.
[2020-05-24 16:07] VITALS: BP 143/96
--- NOTE | 2020-05-24 18:48 | NUR ---
RN CLOSING NOTES PATIENT IN STABLE CONDITION. ALL NEEDS ATTENDED AND PROVIDED. KEPT PATIENT SAFE AND COMFORTABLE. BED IN LOW/LOCKED POSITION. ON JILLIAN SOFT WRIST RESTRAINTS, CIRCULATIONS CHECKED, NO COMPLICATIONS. SIDERAILS UPX2, CALL LIGHT IN REACH. BED ALARM ON. WILL ENDORSE ACCORDINGLY.
--- NOTE | 2020-05-24 19:00 | NUR ---
RN medsurorlin opening notes Received Pt from morning nurse. Pt is laying in bed comfortably watching TV. Pt is alert and orientedX1-2 and able to make needs known. Respiration is normal in room air. No SOB. No S/S of distress noted. IV sites at LAC# 20 is clean, intact and infusing well NS@ 75 ml/hr. Pt is NPO due to PEG placement. Kent cath is intact and draining yellow urine. Bilateral soft wrist restraints are intact, skin is warm to touch and circulation is checks. Safety precautions is maintained. Bed at low position, brakes locked, side rails upX3, HOB elevated, and call light is within reach. Will continue to monitor.
[2020-05-24 20:00] VITALS: BP 159/81
[2020-05-24 20:03] VITALS: BP 159/81
[2020-05-24 21:00] VITALS: BP 140/85
--- NOTE | 2020-05-25 06:37 | NUR ---
RN medsur closing notes Pt is resting in bed comfortably watching TV. Pt is alert and orientedX1-2 and able to make needs known. Respiration is normal in room air. No SOB. No S/S of distress noted. VS is stable. Afebrile. IV sites at LAC# 20 is clean, intact and infusing well NS@ 75 ml/hr. Pt remains NPO. Kent cath is intact and draining yellow urine 300 ml. Bilateral soft wrist restraints are intact, skin is warm to touch and circulation is checks. All needs met and attended. Safety precautions is maintained. Bed at low position, brakes locked, side rails upX3, HOB elevated, and call light is within reach. Will endorse to morning nurse for GEOFFREY.
[2020-05-25 06:58] LABS: BASOPHILS # (AUTO) 0.1 /CMM (0.0-0.2); BASOPHILS % (AUTO) 0.6 % (0.0-2.0); EOSINOPHILS % (AUTO) 0.1 % (0.0-6.0); HEMATOCRIT 42 % (39-51); HEMOGLOBIN 13.3 g/dL (13.5-17.5); LYMPHOCYTES % (AUTO) 5.8 % (20.0-44.0); MEAN CORPUSCULAR HGB CONC 32 g/dl (31.0-36.0); MEAN CORPUSCULAR VOLUME 89 fL (80-96); MONOCYTES # (AUTO) 1.1 /CMM (0.1-1.30); MONOCYTES % (AUTO) 6.7 % (2.0-12.0); NEUTROPHILS # (AUTO) 14.6 /CMM (1.8-8.9); NEUTROPHILS % (AUTO) 86.8 % (43.0-81.0); PLATELET COUNT (AUTO) 141 /CMM (150-450); RED BLOOD CELL COUNT(AUTO) 4.64 MIL/uL (4.5-6.0); WHITE BLOOD COUNT (AUTO) 16.8 K/uL (4.3-11.0)
--- NOTE | 2020-05-25 07:30 | NUR ---
RN Opening note Received patient AO x 1-2, confuse, able to responds all stimuli. Patient does no appears pain or discomfort, skin is warm to touch, keep clean/dry, intact IV site running NS at 75ml/hr. Respiratory even and unlabored on room air, o2sat 98%. Kept bed in locked with elevated HOB for ensure air and aspiration precaution. Call light within reach, will continue to monitor.
[2020-05-25 08:00] VITALS: BP 141/92
[2020-05-25 08:32] LABS: CALCIUM, SERUM 8.2 mg/dL (8.5-10.1); CREATININE 0.7 mg/dL (0.6-1.3); POTASSIUM 3.1 mmol/L (3.5-5.1)
[2020-05-25] MEDS: DILTIAZEM HCL CD 240 MG PO SCH (09:00)
[2020-05-25] MEDS: GABAPENTIN 300 MG CAPSULE PO SCH ×3 (09:00→17:00)
[2020-05-25] MEDS: DOXYCYCLINE HYCLATE (100 MG) 100 MG TABLET PO SCH (09:00)
[2020-05-25] MEDS: ENOXAPARIN SODIUM 40 MG/0.4 ML DISP.SYRIN SQ SCH (09:00)
[2020-05-25] MEDS: BENZTROPINE MESYLATE (1 MG) 1 MG TABLET PO SCH ×2 (09:00→17:00)
[2020-05-25] MEDS: HALOPERIDOL 5 MG TABLET PO SCH ×4 (09:00→21:00)
[2020-05-25] MEDS: AMOXICILLIN TRIHYDRATE 250 MG CAPSULE PO SCH (09:00)
[2020-05-25] MEDS: ASPIRIN EC 81 MG TABLET.DR PO SCH (09:00)
[2020-05-25] MEDS: MUPIROCIN OINT 2% 22 GM TUBE NS SCH ×2 (09:15→23:52)
--- NOTE | 2020-05-25 10:40 | NUR ---
Patient left peg procedure in stable condition.
--- NOTE | 2020-05-25 12:16 | NUR ---
Patient back from peg procedure, v/s: bp-142/80, p-99, t-98.6, r-20, O2sat- 97%. G tube site clean.dry, no active bleeding observed. G tube feeding will start from tomorrow morning according MD order
[2020-05-25] MEDS: POTASSIUM CL. PREMIX PERIPHER. 50 ML IV SCH ×4 (12:39→14:34)
[2020-05-25] MEDS: DIGOXIN INJ 0.5 MG/2 ML AMPUL IV SCH (13:24)
[2020-05-25] MEDS: IV NS 0.9% 1,000 ML IV PRN (15:09)
[2020-05-25] MEDS: VANCOMYCIN HCL 0.75 GM in IV D5W 250 ML IV SCH (17:31)
--- NOTE | 2020-05-25 18:30 | NUR ---
RN Opening note Received patient is in bed comfortably, confuse, pt done PEG procedure, no active bleeding observed, intact dressing, Patient does no appears pain or discomfort, skin is warm to touch, keep clean/dry, intact IV site running NS at 75ml/hr. Respiratory even and unlabored on room air, o2sat 98%. Kept bed in locked with elevated HOB for ensure air and aspiration precaution. Call light within reach, will continue to monitor. Addendum: 05/25/20 at 1941 by FATUMA SALCEDO RN error
[2020-05-25 20:00] VITALS: BP 143/84
--- NOTE | 2020-05-25 20:18 | NUR ---
MS/TELE/RN PATIENT APPEAR SLEEPING AT THIS TIME, APPEAR COMFORTABLE, BREATHING EVEN AND UNLABORED, FALL PRECAUTIONS PER PROTOCOL, WILL MONITOR.
[2020-05-25] MEDS ORDERED: MEROPENEM 500 MG in IV NS 0.9% 50 ML IV SCH (21:00)
[2020-05-25] MEDS: MEROPENEM 1 G in IV NS 0.9% 100 ML IV SCH (21:31)
[2020-05-26] MEDS: IV NS 0.9% 1,000 ML IV PRN (02:09)
[2020-05-26] MEDS: MEROPENEM 1 G in IV NS 0.9% 100 ML IV SCH ×2 (04:43→12:50)
[2020-05-26] MEDS: VANCOMYCIN HCL 0.75 GM in IV D5W 250 ML IV SCH (05:13)
--- NOTE | 2020-05-26 06:15 | NUR ---
MS/TELE/RN PATIENT IS AWAKE, CONFUSED, COMFORTABLE, NO SIGNS OF DISTRESS NOTED, GOOD SLEEP NOTED THE WHOLE SHIFT, ALL NEEDS ATTENDED AT THIS TIME, WILL CONTINUE TO MONITOR.
[2020-05-26 06:59] LABS: BASOPHILS % (AUTO) 0.1 % (0.0-2.0); EOSINOPHILS % (AUTO) 0.2 % (0.0-6.0); HEMATOCRIT 39 % (39-51); HEMOGLOBIN 12.3 g/dL (13.5-17.5); LYMPHOCYTES # (AUTO) 1.1 /CMM (0.8-4.8); LYMPHOCYTES % (AUTO) 6.8 % (20.0-44.0); MEAN CORPUSCULAR HGB CONC 32 g/dl (31.0-36.0); MEAN CORPUSCULAR VOLUME 90 fL (80-96); MONOCYTES # (AUTO) 1.4 /CMM (0.1-1.30); MONOCYTES % (AUTO) 8.3 % (2.0-12.0); NEUTROPHILS # (AUTO) 14.3 /CMM (1.8-8.9); NEUTROPHILS % (AUTO) 84.6 % (43.0-81.0); PLATELET COUNT (AUTO) 129 /CMM (150-450); WHITE BLOOD COUNT (AUTO) 16.9 K/uL (4.3-11.0)
[2020-05-26 07:25] LABS: CALCIUM, SERUM 8.1 mg/dL (8.5-10.1); CREATININE 0.7 mg/dL (0.6-1.3); POTASSIUM 3.2 mmol/L (3.5-5.1)
--- NOTE | 2020-05-26 07:30 | NUR ---
RN Opening note Received patient in bed, AO x 1-2, able to responds all stimuli. Pt does no appears pain or distress. Skin is warm to touch, kept clean/dry, intact IV site. Respiratory even and unlabored on room air, no resp distress observed. Keep bed in locked with elevated HOB for ensure air way and aspiration precaution. Call light within reach, will continue to monitor.
[2020-05-26 08:00] VITALS: BP 120/76
[2020-05-26] MEDS: GABAPENTIN 300 MG CAPSULE PO SCH ×2 (08:46→12:49)
[2020-05-26 08:47] VITALS: BP 126/76
[2020-05-26] MEDS: ASPIRIN EC 81 MG TABLET.DR PO SCH (08:47)
[2020-05-26] MEDS: DILTIAZEM HCL CD 240 MG PO SCH (08:47)
[2020-05-26] MEDS: HALOPERIDOL 5 MG TABLET PO SCH ×2 (08:48→12:49)
[2020-05-26] MEDS: BENZTROPINE MESYLATE (1 MG) 1 MG TABLET PO SCH (08:48)
[2020-05-26] MEDS: MUPIROCIN OINT 2% 22 GM TUBE NS SCH (08:49)
[2020-05-26] MEDS ORDERED: POTASSIUM CHLORIDE 20 MEQ POWDER PACKET GT ONE (09:00)
[2020-05-26] MEDS: ENOXAPARIN SODIUM 40 MG/0.4 ML DISP.SYRIN SQ SCH (09:19)
[2020-05-26 10:23] LABS: BAND % (MANUAL) 2 % (0.0-5.0); LYMPHOCYTES % (MANUAL) 7 % (16-48); MONOCYTES % (MANUAL) 4 % (0-11.0); MYELOCYTES % 1 % (0-0); NEUTROPHILS % (MANUAL) 86 (42-76)
[2020-05-26] MEDS ORDERED: JEVITY 1.2 CAL 1,000 ML BOTTLE GT PRN (10:30)
[2020-05-26] MEDS ORDERED: LACT-209 GT (10:36)
[2020-05-26] MEDS ORDERED: MERO500P IV (10:36)
[2020-05-26] MEDS ORDERED: VANC750F IV (10:36)
[2020-05-26] MEDS: DIGOXIN INJ 0.5 MG/2 ML AMPUL IV SCH (12:49)
--- NOTE | 2020-05-26 14:25 | NUR ---
Patient discharge to [facility], given report Makayla RN include continue to IV ATB 4 days more, peg dietary service evaluation. Wound picture taken.
--- NOTE | 2020-05-26 15:30 | NUR ---
2EMTs picked up patient and given report/. Patient in stable condition.
[2020-06-08] MEDS ORDERED: BISA10SU11 RC (17:02)
[2020-06-08] MEDS ORDERED: ASPI-1169 GT (17:02)
[2020-06-12] MEDS ORDERED: VANC750V IV (17:48)
[2020-06-12] MEDS ORDERED: ERTA1VIA4 IJ (17:48)
== END 2020-05-26 15:45 | DRG 689 ==
LOC: ER 13:32 → ICU 19:55 → TELE 05-19 14:32 → MED 05-20 11:36
PROVIDERS: ADMIT Nurse Practitioner Acute Care; ATTEND Nurse Practitioner Acute Care
PROC: 0DH63UZ Insertion of Feeding Device into Stomach, Percutaneous Approach (ICD-10-PCS; principal; 2020-05-25)
DX: N39.0 Urinary tract infection, site not specified (principal); G93.41 Metabolic encephalopathy; I21.A1 Myocardial infarction type 2; E44.0 Moderate protein-calorie malnutrition; I48.91 Unspecified atrial fibrillation; E11.9 Type 2 diabetes mellitus without complications; E78.5 Hyperlipidemia, unspecified; G20 Parkinson's disease; F02.80 Dementia in other diseases classified elsewhere, unspecified severity, without behavioral disturbance, psychotic disturbance, mood disturbance, and anxiety; I10 Essential (primary) hypertension; Z79.82 Long term (current) use of aspirin; Z79.899 Other long term (current) drug therapy; F20.9 Schizophrenia, unspecified; I70.0 Atherosclerosis of aorta; M17.12 Unilateral primary osteoarthritis, left knee; M25.462 Effusion, left knee; F29 Unspecified psychosis not due to a substance or known physiological condition; D69.6 Thrombocytopenia, unspecified; E87.6 Hypokalemia; R13.10 Dysphagia, unspecified; C44.311 Basal cell carcinoma of skin of nose; K29.70 Gastritis, unspecified, without bleeding; B95.2 Enterococcus as the cause of diseases classified elsewhere
CPT/HCPCS: 36415; 36600; 43246; 70450-TC; 71045-TC; 80048-TC; 80061-TC; 80076-TC; 80162-TC; 80202-TC; 80305; 81000-TC; 82140-TC; 82550-TC; 82728-TC; 82803-TC; 82962-TC; 83605-TC; 83615-TC; 83735-TC; 83880; 84100-TC; 84443-TC; 84484-TC; 85025-TC; 85378-TC; 85385-TC; 85610-TC; 85730-TC; 86140-TC; 87040-TC; 87081-TC; 87086-TC; 87186-TC; 92526; 92611-TC; 97530-TC; A9563; G0378; G0480; J0690; J0696; J1160; J1650; J2185; J2543; J2704; J3370; J3480; J3490; J7030; J7050; J7060; U0003-CS

== ENCOUNTER 2020-05-27 21:32 | Inpatient (IN) | payer MEDICARE, BC ==
[~2020-05-27] VITALS: Ht 185.4 cm; Wt 64.9 kg
[~2020-05-27 21:32] MED LIST changes: +ACET-868 PO; +BENZ0.5T43 PO; +BUSP5TAB3 PO; -DIGO250T GT; +DIGO250T PO; -DILT240C88 GT; +DILT240C88 PO; -GABA-532 GT; +GABA-532 PO; +HALO0.5T2 PO; -HYDR-4384 PO; +LACT-209 GT; +MAG30ORA PO; +MAGN400O6 PO; +MERO500P IV; -ONDA4TAB5 PO; +VANC750F IV
--- NOTE | 2020-05-27 21:37 | NUR ---
PT CARLOS FROM [facility] C/O FOUND BLOOD IN PT'S DIAPER. PER SNF NURSE "RECTAL BLEEDING". PT WAS D/C'D FROM [facility] TODAY AT 1530. PLACED ON MONITOR AND PULSE OX. PT IS AAOX2. AWAITING ORDERS.
--- NOTE | 2020-05-27 22:04 | NUR ---
laundry room attendant at bedside for labs
[2020-05-27 22:19] LABS: BASOPHILS # (AUTO) 0.2 /CMM (0.0-0.2); BASOPHILS % (AUTO) 1.4 % (0.0-2.0); EOSINOPHILS % (AUTO) 0.4 % (0.0-6.0); HEMATOCRIT 35 % (39-51); HEMOGLOBIN 10.9 g/dL (13.5-17.5); LYMPHOCYTES # (AUTO) 1.1 /CMM (0.8-4.8); LYMPHOCYTES % (AUTO) 6.3 % (20.0-44.0); MEAN CORPUSCULAR HGB CONC 32 g/dl (31.0-36.0); MEAN CORPUSCULAR VOLUME 89 fL (80-96); MONOCYTES # (AUTO) 1.3 /CMM (0.1-1.30); MONOCYTES % (AUTO) 7.3 % (2.0-12.0); NEUTROPHILS # (AUTO) 14.7 /CMM (1.8-8.9); NEUTROPHILS % (AUTO) 84.6 % (43.0-81.0); PLATELET COUNT (AUTO) 137 /CMM (150-450); RED BLOOD CELL COUNT(AUTO) 3.88 MIL/uL (4.5-6.0); WHITE BLOOD COUNT (AUTO) 17.4 K/uL (4.3-11.0)
[2020-05-27 22:31] LABS: ALANINE AMINOTRANSFERASE 16 U/L (12-78); ALBUMIN 2.1 g/dL (3.4-5.0); ALKALINE PHOSPHATASE 89 U/L (46-116); ASPARTATE AMINOTRANSFERASE 20 U/L (15-37); BILIRUBIN,DIRECT 0.5 mg/dL (0.0-0.2); CALCIUM, SERUM 8.1 mg/dL (8.5-10.1); CARBON DIOXIDE 27 mmol/L (21-32); CHLORIDE 105 mmol/L (98-107); CREATININE 0.7 mg/dL (0.6-1.3); GLUCOSE 146 mg/dL (74-106); POTASSIUM 3.1 mmol/L (3.5-5.1); SODIUM SERUM 141 mmol/L (136-145); TOTAL PROTEIN, SERUM 5.1 g/dL (6.4-8.2); UREA NITROGEN, BLOOD 11 mg/dL (7-18)
--- NOTE | 2020-05-27 22:47 | NUR ---
COVID SWAB SENT TO LAB
[2020-05-27] MEDS ORDERED: MAG HYDROX/AL HYDROX/SIMETH 30 ML UDC PO PRN ×2 (23:00→23:30)
[2020-05-27] MEDS ORDERED: MAGNESIUM HYDROXIDE 30 ML UDC PO PRN ×2 (23:00→23:30)
[2020-05-27] MEDS ORDERED: JEVITY 1.2 CAL 1,000 ML BOTTLE GT PRN (23:00)
[2020-05-27] MEDS ORDERED: ACETAMINOPHEN 325 MG TABLET PO PRN ×2 (23:00→23:30)
--- NOTE | 2020-05-27 23:26 | NUR ---
COVID NEGATIVE. ROOM: [facility] 304-2
[2020-05-27] MEDS ORDERED: Z GUARD REMEDY 2 OZ OINT TP PRN (23:30)
[2020-05-27] MEDS ORDERED: ONDANSETRON HCL/PF 4 MG/2 ML VIAL IVP PRN (23:30)
[2020-05-27] MEDS ORDERED: HYDROCODONE/APAP 5/325MG TABLET PO PRN (23:30)
[2020-05-28] MEDS ORDERED: VANCOMYCIN 1 GM in IV D5W 250ml IV ONE (00:30)
--- NOTE | 2020-05-28 00:37 | NUR ---
report given to maxine on third floor
--- NOTE | 2020-05-28 00:45 | NUR ---
CARGO BROKER NOTES PATIENT ARRIVED ON FLOOR AT 0045. PT IS IN BED, AWAKE, ALERT AND ORIENTED X 1-2, PT IS LETHARGIC. BREATHING EVEN AND UNLABORED ON ROOM AIR. SHOWS NO SIGNS OF ACUTE RESPIRATORY DISTRESS, NO ACUTE PAIN. IV ON 24G R FA, AND 20G L WRIST RUNNING D5 1/2 NS AT 75ML/HR. SHOWS NO SIGNS OF INFILTRATION, NO REDNESS. BELONGINGS CHECKLIST COMPLETED, SKIN ASSESSMENT COMPLETED. SAFETY PRECAUTION IN PLACE. BED IN LOWEST POSITION, LOCKED, AND CALL LIGHT KEPT WITHIN REACH. WILL CONTINUE TO MONITOR.
[2020-05-28] MEDS ORDERED: VANCOMYCIN 1 GM VIAL ONE (00:59)
--- NOTE | 2020-05-28 00:59 | NUR ---
PT TRANSFERRED TO ROOM VIA ACLS PROTOCOL
[2020-05-28] MEDS ORDERED: MEROPENEM 500 MG VIAL IV ONE (01:00)
[2020-05-28] MEDS: IV D5/0.45 NACL 1,000 ML IV PRN (01:13)
[2020-05-28 01:33] VITALS: BP 97/66
[2020-05-28 04:21] VITALS: BP 95/72
[2020-05-28] MEDS ORDERED: MEROPENEM 500 MG in IV NS 0.9% 50 ML IV SCH (05:00)
[2020-05-28 06:21] LABS: BASOPHILS % (AUTO) 0.3 % (0.0-2.0); EOSINOPHILS % (AUTO) 0.2 % (0.0-6.0); HEMATOCRIT 29 % (39-51); HEMOGLOBIN 9.5 g/dL (13.5-17.5); LYMPHOCYTES # (AUTO) 1.6 /CMM (0.8-4.8); LYMPHOCYTES % (AUTO) 11.7 % (20.0-44.0); MEAN CORPUSCULAR HGB CONC 32 g/dl (31.0-36.0); MEAN CORPUSCULAR VOLUME 88 fL (80-96); MONOCYTES % (AUTO) 7.2 % (2.0-12.0); NEUTROPHILS # (AUTO) 11.3 /CMM (1.8-8.9); NEUTROPHILS % (AUTO) 80.6 % (43.0-81.0); PLATELET COUNT (AUTO) 109 /CMM (150-450); RED BLOOD CELL COUNT(AUTO) 3.35 MIL/uL (4.5-6.0)
[2020-05-28 07:08] LABS: CALCIUM, SERUM 8.2 mg/dL (8.5-10.1); CREATININE 0.6 mg/dL (0.6-1.3); PHOSPHORUS 2.2 mg/dL (2.5-4.9)
--- NOTE | 2020-05-28 07:23 | NUR ---
OSTEOPATHIC PHYSICIAN NOTES PT IS IN BED, ASLEEP, ALERT AND ORIENTED X 1-2, PT IS LETHARGIC. BREATHING EVEN AND UNLABORED ON ROOM AIR. SHOWS NO SIGNS OF ACUTE RESPIRATORY DISTRESS, NO ACUTE PAIN. IV ON 24G R FA, AND 20G L WRIST RUNNING D5 1/2 NS AT 75ML/HR. SHOWS NO SIGNS OF INFILTRATION, NO REDNESS. ALL DUE MEDICATIONS GIVEN. SAFETY PRECAUTION IN PLACE. BED IN LOWEST POSITION, LOCKED, AND CALL LIGHT KEPT WITHIN REACH. WILL ENDORSE TO ONCOMING NURSE.
[2020-05-28 08:00] VITALS: BP 110/63
--- NOTE | 2020-05-28 08:00 | NUR ---
received pt. very groggy,but arousable.vs stable.no acute distress.alert and oriented x1-2.iv infusing.
[2020-05-28 08:30] LABS: POTASSIUM 2.8 mmol/L (3.5-5.1)
[2020-05-28] MEDS: HALOPERIDOL 5 MG TABLET PO SCH ×4 (09:00→20:35)
[2020-05-28] MEDS: BENZTROPINE MESYLATE (1 MG) 1 MG TABLET PO SCH ×2 (09:00→17:55)
[2020-05-28] MEDS: GABAPENTIN 100 MG CAPSULE PO SCH ×3 (09:00→17:55)
[2020-05-28] MEDS ORDERED: DIGOXIN 0.25 MG TABLET PO SCH ×2 (09:00→13:00)
[2020-05-28] MEDS: busPIRone 5 MG TABLET PO SCH ×3 (09:00→17:50)
[2020-05-28 09:25] LABS: IRON, SERUM 21 ug/dl (50-175); TOTAL IRON BINDING CAPACITY 113 ug/dl (250-450)
[2020-05-28 09:40] LABS: FERRITIN 793 ng/mL (8-388)
[2020-05-28] MEDS: POTASSIUM PHOSPHATE MM 7.5 MMOL in IV NS 0.9% 100 ML IV SCH ×2 (09:43→13:24)
[2020-05-28] MEDS ORDERED: PEG 3350/NA SULF,BICARB,CL/KCL 4,000 ML BOTTLE PO ONE (11:30)
--- NOTE | 2020-05-28 13:00 | NUR ---
receiving k phos iv for low potassium and phosphorous.
[2020-05-28] MEDS: MEROPENEM 500 MG in IV NS 0.9% 50 ML IV SCH ×2 (13:31→20:35)
--- NOTE | 2020-05-28 14:48 | NUR ---
kishan- xin started.attempted to explain need for laxative.
[2020-05-28 16:00] VITALS: BP 128/95
--- NOTE | 2020-05-28 16:26 | NUR ---
pt. on go-lytely in preparation of colonoscopy tomorrow.pt. fighting adm. of go-lytely periodically.ronald harmon informed of ldl from 05/19.will look in to need for statin.
--- NOTE | 2020-05-28 18:00 | NUR ---
voided sm. amt. in diaper.babatunde somers called and got order for urine cath prn.on bladder scanner showed 15-17 ml in bladder.
--- NOTE | 2020-05-28 18:20 | NUR ---
started having loose bm at this time.
--- NOTE | 2020-05-28 18:30 | NUR ---
noted redenned area below sacrum,angela. rn to follow up with photo.
--- NOTE | 2020-05-28 19:50 | NUR ---
MS RN NOTES PATIENT IN BED, AWAKE, ALERT AND ORIENTED X 1-2. PT IS MORE AWAKE AND TALKATIVE. BREATHING EVEN AND UNLABORED ON ROOM AIR. SHOWS NO SIGNS OF ACUTE RESPIRATORY DISTRESS, NO ACUTE PAIN. IV ON RIGHT FA 24G AND L WRIST 20G RUNNING D5 1/2 NS AT 75ML/HR. SHOWS NO SIGNS OF INFILTRATION, NO REDNESS. GTUBE IS CLEAN DRY AND INTACT. FLUSHES WELL AND CLAMP. PT WILL BE NPO AT MIDNIGHT FOR PROCEDURE. SAFETY PRECAUTIONS IN PLACE. BED IN LOWEST POSITION, LOCKED, AND CALL LIGHT KEPT WITHIN REACH. WILL CONTINUE TO MONITOR.
[2020-05-28 20:00] VITALS: BP 116/79
--- NOTE | 2020-05-28 20:00 | NUR ---
RN NOTES RECEIVED TELEPHONE CONSENT FROM CHARLENE LEAHY FOR PROCEDURE 05/29. LOUISA SIMONS WITNESS FOR CONSENT. WILL CONTINUE TO MONITOR.
[2020-05-28 20:03] LABS: HEMOGLOBIN 9.4 g/dL (13.5-17.5)
[2020-05-28] MEDS: VANCOMYCIN HCL 1.25 GM in IV D5W 260 ML IV SCH (21:46)
[2020-05-29] MEDS: IV D5/0.45 NACL 1,000 ML IV PRN (00:20)
--- NOTE | 2020-05-29 02:00 | NUR ---
MS RN NOTES PATIENT DID NOT URINATE ALL NIGHT. BLADDER SCANNER SHOWED GREATER THAN 200ML. PT HAS STANDING ORDER FOR STRAIGHT CATH Q6HR. PT ALLOWED FOR STRAIGHT CATH, 700ML OUT. WILL CONTINUE TO MONITOR.
[2020-05-29] MEDS: MEROPENEM 500 MG in IV NS 0.9% 50 ML IV SCH ×3 (05:34→22:11)
[2020-05-29 06:27] LABS: BASOPHILS # (AUTO) 0.1 /CMM (0.0-0.2); BASOPHILS % (AUTO) 0.5 % (0.0-2.0); EOSINOPHILS % (AUTO) 0.2 % (0.0-6.0); HEMATOCRIT 27 % (39-51); HEMOGLOBIN 8.9 g/dL (13.5-17.5); LYMPHOCYTES # (AUTO) 1.8 /CMM (0.8-4.8); LYMPHOCYTES % (AUTO) 18.2 % (20.0-44.0); MEAN CORPUSCULAR HGB CONC 33 g/dl (31.0-36.0); MEAN CORPUSCULAR VOLUME 88 fL (80-96); MONOCYTES # (AUTO) 0.7 /CMM (0.1-1.30); MONOCYTES % (AUTO) 7.4 % (2.0-12.0); NEUTROPHILS # (AUTO) 7.3 /CMM (1.8-8.9); NEUTROPHILS % (AUTO) 73.7 % (43.0-81.0); PLATELET COUNT (AUTO) 104 /CMM (150-450); RED BLOOD CELL COUNT(AUTO) 3.03 MIL/uL (4.5-6.0); WHITE BLOOD COUNT (AUTO) 9.8 K/uL (4.3-11.0)
[2020-05-29 06:42] LABS: BILIRUBIN,TOTAL 0.7 mg/dL (0.2-1.0); CALCIUM, SERUM 7.9 mg/dL (8.5-10.1); CREATININE 0.6 mg/dL (0.6-1.3); POTASSIUM 3.1 mmol/L (3.5-5.1); TOTAL PROTEIN, SERUM 4.8 g/dL (6.4-8.2)
--- NOTE | 2020-05-29 06:52 | NUR ---
MS RN NOTES PATIENT IN BED, ASLEEP, ALERT AND ORIENTED X 1-2. BREATHING EVEN AND UNLABORED ON ROOM AIR. SHOWS NO SIGNS OF ACUTE RESPIRATORY DISTRESS, NO ACUTE PAIN. IV ON RIGHT FA 24G AND L WRIST 20G RUNNING D5 1/2 NS AT 75ML/HR. SHOWS NO SIGNS OF INFILTRATION, NO REDNESS. GTUBE IS CLEAN DRY AND INTACT. FLUSHES WELL AND CLAMP, GIVEN GOLYTELY THRU GTUBE. ALL DUE MEDICATIONS GIVEN. SAFETY PRECAUTIONS IN PLACE. BED IN LOWEST POSITION, LOCKED, AND CALL LIGHT KEPT WITHIN REACH. WILL ENDORSE TO ONCOMING NURSE.
--- NOTE | 2020-05-29 07:30 | NUR ---
RECEIVED PT. IN AM ALERT AND ORIENTED X1-2.IV INFUSING,G-TUBE CLAMPED,STILL PASSING SM. AMT. LOOSE STOOL.
[2020-05-29 08:00] VITALS: BP 115/77
[2020-05-29] MEDS: busPIRone 5 MG TABLET PO SCH ×3 (08:53→17:00)
[2020-05-29] MEDS: BENZTROPINE MESYLATE (1 MG) 1 MG TABLET PO SCH ×2 (08:54→17:00)
[2020-05-29] MEDS: HALOPERIDOL 5 MG TABLET PO SCH ×4 (08:54→21:40)
[2020-05-29] MEDS: GABAPENTIN 100 MG CAPSULE PO SCH ×3 (08:54→17:00)
[2020-05-29] MEDS ORDERED: POTASSIUM PHOSPHATE MM 15 MMOL in IV NS 0.9% 250 ML IV SCH (09:00)
--- NOTE | 2020-05-29 09:38 | NUR ---
WOUND CARE CONSULT: PT PRESENTS WITH DRY LESION TO LEFT SIDE OF NOSE AND INCONTINENCE ASSOCIATED SKIN DAMAGE TO LEFT BUTTOCK, PRESENT ON ADMISSION. RECOMMENDATIONS MADE FOR SKIN PROTECTION. DISCUSSED WITH NURSING STAFF. DR SAM NOTIFIED OF PT READMISSION. PT IS ON DANYELL ISOFLEX LOW AIRLOSS BED. G TUBE NOTED (CLAMPED). WILL SEE PRN. DORSEY IN AGREEMENT WITH PLAN OF CARE. Addendum: 05/29/20 at 0941 by ZA YEE WNDNU Amended: Links added.
[2020-05-29 09:45] LABS: BAND % (MANUAL) 1 % (0.0-5.0); LYMPHOCYTES % (MANUAL) 17 % (16-48); MONOCYTES % (MANUAL) 14 % (0-11.0); NEUTROPHILS % (MANUAL) 68 (42-76)
[2020-05-29] MEDS: POTASSIUM PHOSPHATE MM 7.5 MMOL in IV NS 0.9% 100 ML IV SCH ×4 (09:58→23:36)
--- NOTE | 2020-05-29 10:30 | NUR ---
REMOVED BOTH HEP LOCKS.
--- NOTE | 2020-05-29 12:00 | NUR ---
NEW IV START RT. FOREARM.
[2020-05-29] MEDS ORDERED: DIGOXIN INJ 0.5 MG/2 ML AMPUL IV ONE ×2 (13:30→16:30)
--- NOTE | 2020-05-29 14:00 | NUR ---
POT. PHOSPHATE STARTED.DESIREE CHERY INFORMED OF LT. SWOLLEN ARM AND DUPLEX VENOUS ORDERED.
[2020-05-29 16:00] VITALS: BP 137/89
--- NOTE | 2020-05-29 16:30 | NUR ---
HOOKED UP TO TELE SHORT WHILE FOR IV DIGOXIN ADM.
--- NOTE | 2020-05-29 16:56 | NUR ---
PRELIMINARY RESULT OF DUPLEX VENOUS OF LEFT UPPER EXTREMITY SHOWED POSITIVE FOR THROMBUS AT LEFT AXILLARY VEIN. RN WAS ADVISED OF INITIAL FINDING.
--- NOTE | 2020-05-29 17:55 | NUR ---
LEFT VIA BED TO OR.
--- NOTE | 2020-05-29 18:00 | NUR ---
Markus CHERY NP INFORMED OF POSITIVE DVT LT. ARM.NO ORDERS GIVEN DUE TO GI BLEED.
--- NOTE | 2020-05-29 19:05 | NUR ---
RETURNED TO .NO PROCEDURE DONE PT NOT CLEAR. ORDERS ON CHART.
[2020-05-29 20:00] VITALS: BP 138/87
[2020-05-29] MEDS ORDERED: NA PHOS,M-B/NA PHOS,DI-BA 1 EA ENEMA RC PRN (20:00)
[2020-05-29] MEDS ORDERED: BISACODYL SUPP (10 MG) 10 MG/SUPP.RECT SUPP.RECT RC PRN (20:00)
--- NOTE | 2020-05-29 20:00 | NUR ---
MS/RN OPENING NOTES RECEIVED PATIENT WHO ARRIVED FROM OPERATING ROOM AT 1900 AND AWAKE, ALERT X1, TO SELF, TALKING AND ABLE TOT RESPOND WITH NURSE, REQUIRE OXYGEN VIA NC AT 2 LITER FOR COMFORT, SKIN COOL TO TOUCH, PROCEDURE FOR COLONOSCOPY WAS STOPPED DUE TO IMPACTED BOWEL And WITH ORDER TO RESUME GTUBE FEEDING AND MANUAL IMPACTION, DULCOLAX PRN . IV POTASSIUM STILL BEING INFUSED AND TO INFUSE TWO MORE BAGS, IV SITE ON RFA. LUE HAS OCCLUDED WITH RESULT FROM DOPPLER DVT PUMP LACED ON, BED LOCKED, KEPT COMFORTABLE, HAD BM UPON ARRIVAL. KEPT SKIN INTACT AND DRY. TO MONITOR,
--- NOTE | 2020-05-29 20:05 | NUR ---
MS/RN NOTES ORDER FROM MD KEMP RECEIVED TO CONTINUE TUBE FEEDING, BOWEL DISIMPACTION, NEEDED DULCOLAX SUPPOSITORY
[2020-05-29] MEDS ORDERED: JEVITY 1.2 CAL 1,000 ML BOTTLE GT PRN (20:30)
[2020-05-29 20:52] LABS: HEMOGLOBIN 9.2 g/dL (13.5-17.5)
--- NOTE | 2020-05-29 21:00 | NUR ---
MS/RN NOTES PATIENT HAD ANOTHER BOWEL MOVEMENT, LIQUID STOOL.
--- NOTE | 2020-05-29 23:58 | NUR ---
midline insertion order for iv vanco and other antibiotic therapy ,broadcast field supervisor aware.
[2020-05-30] MEDS: VANCOMYCIN HCL 1.25 GM in IV D5W 260 ML IV SCH ×2
--- NOTE | 2020-05-30 04:31 | NUR ---
CHANGED DUE TO BOWEL INCONTINENCE. HAD ANOTHER BM.
[2020-05-30] MEDS: MEROPENEM 500 MG in IV NS 0.9% 50 ML IV SCH ×2 (04:43→12:25)
[2020-05-30] MEDS: IV D5/0.45 NACL 1,000 ML IV PRN (04:44)
[2020-05-30 06:22] LABS: BASOPHILS # (AUTO) 0.1 /CMM (0.0-0.2); BASOPHILS % (AUTO) 0.8 % (0.0-2.0); EOSINOPHILS % (AUTO) 0.2 % (0.0-6.0); HEMATOCRIT 31 % (39-51); HEMOGLOBIN 9.9 g/dL (13.5-17.5); LYMPHOCYTES # (AUTO) 1.3 /CMM (0.8-4.8); LYMPHOCYTES % (AUTO) 17.9 % (20.0-44.0); MEAN CORPUSCULAR HGB CONC 32 g/dl (31.0-36.0); MEAN CORPUSCULAR VOLUME 89 fL (80-96); MONOCYTES # (AUTO) 0.8 /CMM (0.1-1.30); MONOCYTES % (AUTO) 10.8 % (2.0-12.0); NEUTROPHILS # (AUTO) 5.1 /CMM (1.8-8.9); NEUTROPHILS % (AUTO) 70.3 % (43.0-81.0); PLATELET COUNT (AUTO) 117 /CMM (150-450); RED BLOOD CELL COUNT(AUTO) 3.43 MIL/uL (4.5-6.0); WHITE BLOOD COUNT (AUTO) 7.3 K/uL (4.3-11.0)
--- NOTE | 2020-05-30 06:34 | NUR ---
304-2 MS/RN NOTES PATIENT SLEPT FEW HOURS, REORIENTED AND REDIRECTED, ATTENDED ALL NEEDS, REPOSITIONED FOR COMFORT.IV SITE OM RFA PATENT, GTUBE FLUSHED AND WITH NO RESIDUALS. SKIN KEPT DRY AND IMTACT, BED LOCKED, CALL LIGHTS WITHIN REACH, RESPIRATIONS EVEN AND UNLABORED. WILL ENDORSE TO AM RN FOR GEOFFREY.
[2020-05-30 06:45] LABS: CALCIUM, SERUM 8.2 mg/dL (8.5-10.1); CREATININE 0.6 mg/dL (0.6-1.3); POTASSIUM 3.2 mmol/L (3.5-5.1)
--- NOTE | 2020-05-30 07:15 | NUR ---
MS/RN - Assessment Patient is awake, A/O x 2, denies pain, afebrile, no active bleeding, not in any form of distress, stable on room air. GTF Jevity 1.2 @ 20 ml/hr tolerated well, no residual seen. Patient for mid-line placement today for antibiotic management. Labs reviewed, still noted with low potassium, will notify Md. Will do wound treatment as ordered, repositioned per protocol. Fall and aspiration precautions maintained. Will continue with current medical management.
[2020-05-30 08:00] VITALS: BP 108/63
[2020-05-30] MEDS: HALOPERIDOL 5 MG TABLET PO SCH ×3 (08:23→16:15)
[2020-05-30] MEDS: GABAPENTIN 100 MG CAPSULE PO SCH ×3 (08:23→16:15)
[2020-05-30] MEDS: busPIRone 5 MG TABLET PO SCH ×3 (08:23→16:15)
[2020-05-30] MEDS: BENZTROPINE MESYLATE (1 MG) 1 MG TABLET PO SCH ×2 (08:23→16:15)
[2020-05-30] MEDS ORDERED: POTASSIUM CHLORIDE 20 MEQ POWDER PACKET GT SCH (10:00)
[2020-05-30] MEDS ORDERED: DIGOXIN 0.25 MG TABLET PO SCH (13:00)
[2020-05-30 16:00] VITALS: BP 131/71
[2020-05-30] MEDS ORDERED: VANCOMYCIN HCL 1.25 GM in IV D5W 250 ML IV SCH (16:00)
--- NOTE | 2020-05-30 16:30 | NUR ---
MS/RN - Midline insertion Midline was inserted on the JOHN by PICC RN, patient tolerated procedure well.
--- NOTE | 2020-05-30 19:06 | NUR ---
MS/RN - Discharge Patient is A/0 X 1-2, forgetful, confused, reality orientation given[facility] Reviewed discharge instructions with RONAK Schwarz ([phone]) and she verbalized full understanding and all questions answered to her satisfaction. Patient came in with no belongings. VSS, denies pain, afebrile, no apparent distress, stable on room air, potassium replacement given. Discharge pictures taken. No fall/injury during hospital stay. Family aware of discharge and in agreement. Endorsed to warehouse shift supervisor accordingly.
--- NOTE | 2020-05-30 19:28 | NUR ---
PATIENT WITH NO BELONGINGS, SKIN KEPT INTACT AND DRY., NO PAIN OR MOANING OR GUARDING .
--- NOTE | 2020-05-30 19:29 | NUR ---
PATIENT WAS PICKED UP BY TRANSPORT VIA GURNEY VITAL SIGNS TAKEN WNL, ALERT X2 BUT DISORIENTATION AND REQUIRE REORIENTATION, ACKNOWLEDGE PERSON AND SELF, ABLE TO FOLLOW SIMPLE COMANDS, JOHN MIDLINE PLACED, REMOVED ID BANDS AND PERIPHERAL IV. KEPT MIDLINE ON FOR CONTINUATION OF IV ANTIBIOTIC. [facility] WAS AWARE AWAITING FOR PATIENTS RETURN. REPORT GIVEN TO SENIOR NET DEVELOPER ARCHITECT. MD AWARE.
== END 2020-05-30 19:30 | DRG 393 ==
LOC: ER 21:33 → TELE 23:29 → MED 05-28 11:15
PROVIDERS: ADMIT Internal Medicine; ATTEND Nurse Practitioner Acute Care
PROC: 0DJD8ZZ Inspection of Lower Intestinal Tract, Via Natural or Artificial Opening Endoscopic (ICD-10-PCS; principal; 2020-05-29)
PROC: 05HY33Z Insertion of Infusion Device into Upper Vein, Percutaneous Approach (ICD-10-PCS; 2020-05-30)
DX: K64.9 Unspecified hemorrhoids (principal); E43 Unspecified severe protein-calorie malnutrition; G93.41 Metabolic encephalopathy; N39.0 Urinary tract infection, site not specified; Z68.1 Body mass index [BMI] 19.9 or less, adult; D68.59 Other primary thrombophilia; I82.A12 Acute embolism and thrombosis of left axillary vein; E11.9 Type 2 diabetes mellitus without complications; G20 Parkinson's disease; F02.80 Dementia in other diseases classified elsewhere, unspecified severity, without behavioral disturbance, psychotic disturbance, mood disturbance, and anxiety; I48.91 Unspecified atrial fibrillation; B95.2 Enterococcus as the cause of diseases classified elsewhere; E87.6 Hypokalemia; I10 Essential (primary) hypertension; C44.311 Basal cell carcinoma of skin of nose; E78.5 Hyperlipidemia, unspecified; D64.9 Anemia, unspecified; I25.2 Old myocardial infarction; Z86.59 Personal history of other mental and behavioral disorders; Z93.1 Gastrostomy status; Z87.01 Personal history of pneumonia (recurrent); M19.90 Unspecified osteoarthritis, unspecified site; K56.41 Fecal impaction; R13.10 Dysphagia, unspecified; R62.7 Adult failure to thrive
CPT/HCPCS: 36410; 36415; 71045-TC; 80048-TC; 80053-TC; 80076-TC; 80162-TC; 80202-TC; 82728-TC; 83540-TC; 83735-TC; 84100-TC; 85025-TC; 85027-TC; 85730-TC; 86850-TC; 87081-TC; 93971-TC; C9803-CS; G0378; J1160; J2185; J3370; J3490; J7030; J7050; J7060

== ENCOUNTER 2020-06-13 17:40 | Inpatient (IN) | payer MEDICARE, BC ==
[~2020-06-13] VITALS: Ht 170.2 cm; Wt 65.8 kg
[~2020-06-13 17:40] MED LIST changes: +ACET-868 GT; -ACET-868 PO; +ASPI-1169 GT; -ASPI-1420 PO; +BENZ0.5T43 GT; -BENZ0.5T43 PO; +BISA10SU11 RC; +BUSP5TAB3 GT; -BUSP5TAB3 PO; +DIGO250T GT; -DIGO250T PO; +DILT240C88 GT; -DILT240C88 PO; +ERTA1VIA4 IJ; +GABA-532 GT; -GABA-532 PO; -HALO0.5T2 PO; +MAG30ORA GT; -MAG30ORA PO; +MAGN400O6 GT; -MAGN400O6 PO; -MERO500P IV; -VANC750F IV; +VANC750V IV
--- NOTE | 2020-06-13 18:19 | NUR ---
Patient BIB EMS [facility] 40-50 patient denies painn no Sob able to speak full senteces ,hooked in the monitor ,gown, EKG lab draw .
[2020-06-13 18:20] LABS: BASOPHILS % (AUTO) 0.2 % (0.0-2.0); EOSINOPHILS % (AUTO) 0.1 % (0.0-6.0); HEMATOCRIT 28 % (39-51); LYMPHOCYTES # (AUTO) 2.5 /CMM (0.8-4.8); LYMPHOCYTES % (AUTO) 20.1 % (20.0-44.0); MEAN CORPUSCULAR HGB CONC 32 g/dl (31.0-36.0); MEAN CORPUSCULAR VOLUME 88 fL (80-96); MONOCYTES # (AUTO) 0.9 /CMM (0.1-1.30); MONOCYTES % (AUTO) 7.6 % (2.0-12.0); NEUTROPHILS # (AUTO) 8.8 /CMM (1.8-8.9); PLATELET COUNT (AUTO) 89 /CMM (150-450); RED BLOOD CELL COUNT(AUTO) 3.13 MIL/uL (4.5-6.0); WHITE BLOOD COUNT (AUTO) 12.2 K/uL (4.3-11.0)
[2020-06-13 18:31] LABS: CALCIUM, SERUM 7.9 mg/dL (8.5-10.1); CREATININE 0.6 mg/dL (0.6-1.3); POTASSIUM 3.3 mmol/L (3.5-5.1)
--- NOTE | 2020-06-13 18:53 | NUR ---
CALLED DR. ELIZONDO, AND SPOKE TO DR. JENSEN
[2020-06-13] MEDS ORDERED: BISACODYL SUPP (10 MG) 10 MG/SUPP.RECT SUPP.RECT RC PRN (19:00)
[2020-06-13] MEDS ORDERED: MAG HYDROX/AL HYDROX/SIMETH 30 ML UDC GT PRN (19:00)
[2020-06-13] MEDS ORDERED: ACETAMINOPHEN 325 MG TABLET MC PRN (19:00)
[2020-06-13] MEDS ORDERED: MAGNESIUM HYDROXIDE 30 ML UDC GT PRN (19:00)
[2020-06-13] MEDS ORDERED: JEVITY 1.2 CAL 1,000 ML BOTTLE GT PRN (19:00)
--- NOTE | 2020-06-13 19:05 | NUR ---
PT AAOX2, VSS, RESPIRATIONS EVEN AND UNLABORED ON RA W/ NAD NOTED. PT CONNECTED TO THE AIRCRAFT GENERAL REPAIR MECHANIC AND POX. PT HAS NO MEDICAL COMPLAINTS AT THIS TIME. PT REORIENTED TO HIS ROOM.
--- NOTE | 2020-06-13 19:15 | NUR ---
COVID SWABS COLLECTED AND SENT TO LAB
--- NOTE | 2020-06-13 19:54 | NUR ---
CALL FROM LAB, COVID NEGATIVE.
[2020-06-13 20:10] LABS: EOSINOPHILS % (MANUAL) 1 % (0-4); LYMPHOCYTES % (MANUAL) 32 % (16-48); MONOCYTES % (MANUAL) 7 % (0-11.0); NEUTROPHILS % (MANUAL) 56 (42-76); REACTIVE LYMPHOCYTES 4 % (0-0)
--- NOTE | 2020-06-13 20:22 | NUR ---
TELE 328-2
--- NOTE | 2020-06-13 20:46 | NUR ---
REPORT GIVEN TO RONAK KEMP FOR GEOFFREY
[2020-06-13] MEDS ORDERED: ERTAPENEM SODIUM 1 GM IJ SCH (21:00)
--- NOTE | 2020-06-13 21:17 | NUR ---
PT TRANSFERRED TO ROOM VIA ACLS PROTOCOL
--- NOTE | 2020-06-13 21:30 | NUR ---
AUTO BODY WORKER NOTES PATIENT ARRIVED ON FLOOR AT 2130. PATIENT IS IN BED, AWAKE, ALERT AND ORIENTED X 1-2. UNCOOPERATIVE AND REFUSING ASSESSMENT. BREATHING EVEN AND UNLABORED ON ROOM AIR. NC AT BEDSIDE PRN. TELE MONITOR 50'S AFIB. IV ON L UA 18G AND JOHN PICC ITS CLEAN DRY AND INTACT, FLUSHING WELL. SHOWS NO SIGNS OF INFILTRATION, NO REDNESS. GTUBE INTACT INPLACE WITH ABD BINDER. FC INTACT FLOWING YELLOW URINE. BELONGINGS CHECKLIST COMPLETED. PT REFUSED SKIN ASSESSMENT AND PICTURES. SAFETY PRECAUTIONS IN PLACE WITH BED ALARM ON. BED IN LOWEST POSITION, LOCKED, AND CALL LIGHT KEPT WITHIN REACH. WILL CONTINUE TO MONITOR.
[2020-06-13 22:00] VITALS: BP 128/74
[2020-06-14] VITALS: BP 112/89
--- NOTE | 2020-06-14 02:30 | NUR ---
CUSTOMS EXAMINER NOTES PATIENT ALLOWED TO DO SKIN ASSESSMENT AND PICTURES, ALTHOUGH PT STILL REFUSED TO GET PICTURE OF HIS NOSE. WILL CONTINUE TO MONITOR.
--- NOTE | 2020-06-14 03:31 | NUR ---
BOBTAIL DRIVER NOTES MESSAGED DOC FOR ORDER FOR ANTICOAG. ORDER TO F/U IN THE AM AFTER CARDIAC WORKUP. WILL ENDORSE TO TO AM NURSE.
[2020-06-14 04:00] VITALS: BP 137/68
--- NOTE | 2020-06-14 07:00 | NUR ---
CARE TECHNICIAN NOTES PATIENT IS IN BED, ASLEEP, ALERT AND ORIENTED X 1-2. UNCOOPERATIVE AT TIMES. BREATHING EVEN AND UNLABORED ON ROOM AIR. NC AT BEDSIDE PRN. TELE MONITOR 50'S AFIB. IV ON L UA 18G AND JOHN PICC ITS CLEAN DRY AND INTACT, FLUSHING WELL. SHOWS NO SIGNS OF INFILTRATION, NO REDNESS. GTUBE INTACT INPLACE. FC INTACT FLOWING YELLOW URINE. DVT PUMPS ON. ALL NEEDS ATTENDED TO. ALL DUE MEDICATIONS GIVEN. SAFETY PRECAUTIONS IN PLACE, BED ALARM ON. BED IN LOWEST POSITION, LOCKED, AND CALL LIGHT KEPT WITHIN REACH. WILL ENDORSE TO ONCOMING NURSE.
--- NOTE | 2020-06-14 07:13 | NUR ---
FURNITURE PAINTER NOTES PT CONTINUOUSLY PLAYING WITH GTUBE AND TUGGING. CALLED AND LEFT MESSAGE FOR CENTRAL SUPPLY FOR YANA PERRIN. WILL ENDORSE TO ONCOMING NURSE.
--- NOTE | 2020-06-14 07:20 | NUR ---
INSTRUMENT MAKER APPRENTICE NOTES PATIENT RECEIVED IN BED RESTING COMFORTABLY, ALERT AND ORIENTED X 1-2, PERIODS OF CONFUSION, REORIENTED PATIENT. ON ROOM AIR WITH NO SIGNS OF RESPIRATORY DISTRESS WITH EVEN NON-LABORED BREATHING AND NO SOB NOTED. PATIENT ON LION HUNTER A-FIB, 50'S. PATIENT SKIN WARM AND DRY TO TOUCH, IV ACCESS INTACT AND PATENT. PATIENT PRESENTS WITH NO SIGNS OF PAIN OR DISCOMFORT. BEVERLY CATHETER IN PLACE. G-TUBE SITE CLEAN AND IN PLACE. SAFETY PRECAUTIONS IMPLEMENTED WITH BED LOCKED, BED ALARM ON, BED IN THE LOWEST POSITION, BILATERAL SIDE RAILS UP AND CALL LIGHT WITHIN EASY REACH OF THE PATIENT. WILL CONTINUE TO MONITOR PATIENT.
[2020-06-14 08:00] VITALS: BP 128/70
[2020-06-14] MEDS: VANCOMYCIN 0.75 GM in IV D5W 250 ML IV SCH ×2 (08:32→20:15)
[2020-06-14] MEDS ORDERED: DIATR MEGLU/DIATRIZOATE SODIUM 30 ML BOTTLE (GASTROGRAPHIN) ONE (08:59)
[2020-06-14] MEDS ORDERED: Z GUARD REMEDY 2 OZ OINT TP PRN (09:00)
--- NOTE | 2020-06-14 09:20 | NUR ---
DIRECTOR OF PATIENT CARE NOTES SPOKE WITH DR SALDANA INFORMED HIM ABOUT G-TUBE FEEDING ON PAUSE UNTIL ABDOMEN X-RAY KUB RESULTS ENDORSED BY [facility]. AWAITING FOR RESULTS AT TIME. WILL CONTINUE TO MONITOR PATIENT.
--- NOTE | 2020-06-14 09:20 | NUR ---
WOUND CARE CONSULT: PT PRESENTS WITH SACRAL INTACT DEEP TISSUE INJURY, DUSKY COLOR TO FEET, LEFT 2ND TOE DRY SCAB, REDNESS TO SCROTUM AND DRY LESION TO LEFT SIDE OF NOSE, ALL PRESENT ON ADMISSION. RECOMMENDATIONS MADE FOR SKIN PROTECTION. DISCUSSED WITH NURSING STAFF. PT IS ON DANYELL ISOFLEX LOW AIRLOSS BED. PT FOLLOWED BY SURGICAL AND PODIATRY TEAMS FOR WOUND CARE. DR SAM AND DR HACKETT NOTIFIED OF PT READMISSION. MD IN AGREEMENT WITH PLAN OF CARE.
[2020-06-14] MEDS: busPIRone 5 MG TABLET GT SCH ×3 (09:59→16:08)
[2020-06-14] MEDS: ASPIRIN 81 MG TAB.CHEW GT SCH (09:59)
[2020-06-14] MEDS: GABAPENTIN 100 MG CAPSULE GT SCH ×3 (10:00→16:08)
[2020-06-14] MEDS: BENZTROPINE MESYLATE (1 MG) 1 MG TABLET GT SCH ×2 (10:01→16:08)
[2020-06-14] MEDS: MEROPENEM 500 MG in IV NS 0.9% 100 ML IV SCH ×2 (10:02→21:16)
--- NOTE | 2020-06-14 10:05 | NUR ---
BIOMETRICS ANALYST NOTES INFORMED DR SALDANA ABOUT ABDOMEN X RAY, KUB RESULTS, TIP OF GASTROSTOMY TUBE WITHIN STOMACH, STARTED FEEDING JEVITY AT 20 ml/hr. PLACED ABDOMINAL BINDING ON PATIENT TO PREVENT PATIENT FROM PULLING ON THE SITE. WILL CONTINUE TO MONITOR PATIENT.
[2020-06-14] MEDS: Z GUARD REMEDY 2 OZ OINT TP SCH (10:34)
[2020-06-14] MEDS ORDERED: POTASSIUM CHLORIDE 20 MEQ TAB.PRT.SR PO ONE (11:00)
[2020-06-14 13:32] LABS: BASOPHILS % (AUTO) 0.2 % (0.0-2.0); EOSINOPHILS % (AUTO) 0.2 % (0.0-6.0); HEMATOCRIT 33 % (39-51); HEMOGLOBIN 10.6 g/dL (13.5-17.5); LYMPHOCYTES # (AUTO) 1.6 /CMM (0.8-4.8); LYMPHOCYTES % (AUTO) 13.1 % (20.0-44.0); MEAN CORPUSCULAR HGB CONC 32 g/dl (31.0-36.0); MEAN CORPUSCULAR VOLUME 89 fL (80-96); MONOCYTES # (AUTO) 0.9 /CMM (0.1-1.30); NEUTROPHILS # (AUTO) 9.9 /CMM (1.8-8.9); NEUTROPHILS % (AUTO) 79.5 % (43.0-81.0); PLATELET COUNT (AUTO) 89 /CMM (150-450); RED BLOOD CELL COUNT(AUTO) 3.68 MIL/uL (4.5-6.0); WHITE BLOOD COUNT (AUTO) 12.4 K/uL (4.3-11.0)
--- NOTE | 2020-06-14 14:40 | NUR ---
COMPLAINT OPERATOR NOTES INFORMED DR. SALDANA OF VTE SCORE OF PATIENT, PER DR SALDANA ORDERED LOVENOX 30mg DAILY. WILL CARRY OUT ORDERS AND CONTINUE TO MONITOR PATIENT.
[2020-06-14 15:12] LABS: BAND % (MANUAL) 1 % (0.0-5.0); LYMPHOCYTES % (MANUAL) 35 % (16-48); MONOCYTES % (MANUAL) 1 % (0-11.0); NEUTROPHILS % (MANUAL) 62 (42-76); REACTIVE LYMPHOCYTES 1 % (0-0)
[2020-06-14 15:25] LABS: ALANINE AMINOTRANSFERASE 27 U/L (12-78); ALBUMIN 2.6 g/dL (3.4-5.0); ALKALINE PHOSPHATASE 107 U/L (46-116); ASPARTATE AMINOTRANSFERASE 24 U/L (15-37); BILIRUBIN,TOTAL 1.9 mg/dL (0.2-1.0); CALCIUM, SERUM 8.1 mg/dL (8.5-10.1); CARBON DIOXIDE 30 mmol/L (21-32); CHLORIDE 101 mmol/L (98-107); CREATININE 0.5 mg/dL (0.6-1.3); GLUCOSE 109 mg/dL (74-106); PHOSPHORUS 2.6 mg/dL (2.5-4.9); POTASSIUM 3.3 mmol/L (3.5-5.1); SODIUM SERUM 139 mmol/L (136-145); TOTAL PROTEIN, SERUM 5.4 g/dL (6.4-8.2); UREA NITROGEN, BLOOD 10 mg/dL (7-18)
--- NOTE | 2020-06-14 15:25 | NUR ---
COP EXAMINER NOTES INFORMED DR SALDANA PATIENT VTE SCORE OF 3, INFORMED PLATELETS OF 89, PER MD DISCONTINUE LOVENOX. DVT PUMP ONLY. WILL CARRY OUT ORDERS AND CONTINUE TO MONITOR PATIENT.
[2020-06-14 16:00] VITALS: BP 130/67
--- NOTE | 2020-06-14 18:29 | NUR ---
ADMINISTRATIVE AIDE NOTES PATIENT IN BED WATCHING TV RESTING COMFORTABLY. ALERT AND ORIENTED X 1-2 WITH PERIODS WITH CONFUSIONS. PATIENT ON ROOM AIR WITH NO SIGNS OF RESPIRATORY DISTRESS WITH EVEN NON-LABORED BREATHING AND NO SOB NOTED. IV ACCESS INTACT AND PATENT. BEVERLY CATHETER IN PLACE. G-TUBE SITE INTACT AND IN PLACE, AND ABDOMINAL BINDER IN PLACE TO PREVENT PATIENT FROM TUGGING AT G-TUBE SITE. SKIN KEPT CLEAN AND DRY. ALL OF PATIENT'S NEEDS MET. PATIENT PRESENTS WITH NO SIGNS OF PAIN OR DISCOMFORT. SAFETY PRECAUTIONS IMPLEMENTED WITH BED LOCKED, BED IN THE LOWEST POSITION, BILATERAL SIDE RAILS UP, BED ALARM ON AND CALL LIGHT WITHIN EASY REACH OF THE PATIENT. WILL ENDORSE PLAN OF CARE TO UPCOMING NURSE.
--- NOTE | 2020-06-14 19:05 | NUR ---
PROGRAMMING DIRECTOR OPENING NOTES RECEIVED PATIENT IN BED SLEEPING EASILY AROUSABLE, CONFUSED, RESPIRATIONS EVEN AND UNLABORED WITH EQUAL RISE AND FALL OF CHEST, APPEARS COMFORTABLE AT THIS TIME,ON CARDIAC TELE MONITOR CONTROLLED A.FIB 55. BEVERLY CATHETER INTACT AND PATENT, DRAINING WELL URINE YELLOW, HEAD OF BED ELEVATED FOR ASPIRATION PRECAUTIONS, NO RESIDUALS NOTED AT THIS TIME TOLERATING FEEDING WELL, RIGHT UPPER ARM PICC LINE INTACT AND PATENT, DRESSING IS C/D/I. BETTE #28 G INTACT NO REDNESS, NO INFILTRATION PRESENT, BED ALARM IN PLACE, SAFETY PRECAUTIONS RENDERED, ALL NEEDS ATTENDED AT THIS TIME WILL CONTINUE TO MONITOR AND ATTEND TO NEEDS.
[2020-06-14 20:00] VITALS: BP 128/74
[2020-06-14] MEDS ORDERED: ENOXAPARIN SODIUM 30 MG/0.3 ML DISP.SYRIN SQ SCH (21:00)
[2020-06-15] VITALS: BP 123/52
[2020-06-15 04:00] VITALS: BP 121/60
[2020-06-15 06:43] LABS: CALCIUM, SERUM 7.9 mg/dL (8.5-10.1); CARBON DIOXIDE 30 mmol/L (21-32); CHLORIDE 100 mmol/L (98-107); CREATININE 0.5 mg/dL (0.6-1.3); GLUCOSE 140 mg/dL (74-106); POTASSIUM 3.2 mmol/L (3.5-5.1); SODIUM SERUM 136 mmol/L (136-145); UREA NITROGEN, BLOOD 12 mg/dL (7-18)
--- NOTE | 2020-06-15 06:44 | NUR ---
COCOA BUTTER FILTER OPERATOR CLOSING NOTES PATIENT IN BED SLEEPING EASILY AROUSABLE, CONFUSED, RESPIRATIONS EVEN AND UNLABORED WITH EQUAL RISE AND FALL OF CHEST, APPEARS COMFORTABLE AT THIS TIME,ON CARDIAC TELE MONITOR CONTROLLED A.FIB 64. BEVERLY CATHETER INTACT AND PATENT, DRAINING WELL URINE YELLOW, HEAD OF BED ELEVATED FOR ASPIRATION PRECAUTIONS, NO RESIDUALS NOTED AT THIS TIME TOLERATING FEEDING WELL, RIGHT UPPER ARM PICC LINE INTACT AND PATENT, DRESSING IS C/D/I. BETTE #18 G INTACT NO REDNESS, NO INFILTRATION PRESENT, BED ALARM IN PLACE, SAFETY PRECAUTIONS RENDERED, ALL NEEDS ATTENDED AT THIS TIME WILL CONTINUE TO MONITOR AND ATTEND TO NEEDS AND ENDORSE TO NEXT SHIFT TOLERATED FEEDING AT 35 ML/HR NO RESIDUALS PRESENT.WOUND CARE PROVIDED ORDERED.
--- NOTE | 2020-06-15 07:34 | NUR ---
RN OPEN NOTES PATIENT IS AWAKE A/O X 1-2 IN BED WITH NO SIGNS OF DISTRESS ON 2L OF NASAL CANNULA. IV L UA#18G SL AND R UA PICC LINE. BEVERLY CATHETER INTACT. G-TUBE INTACT FEEDING JEVITY 1.2 AT 40 ML/HR. SAFETY MEASURES ARE APPLIED, BED IS LOW AND LOCKED. SIDE RAILS UP X 2 FOR SAFETY. CALL LIGHT WITHIN REACH. WILL CONTINUE TO MONITOR.
[2020-06-15 08:00] VITALS: BP 113/69
[2020-06-15] MEDS: VANCOMYCIN 0.75 GM in IV D5W 250 ML IV SCH ×2 (08:18→19:57)
[2020-06-15] MEDS: busPIRone 5 MG TABLET GT SCH ×3 (08:19→16:16)
[2020-06-15] MEDS: ASPIRIN 81 MG TAB.CHEW GT SCH (08:19)
[2020-06-15] MEDS: GABAPENTIN 100 MG CAPSULE GT SCH ×3 (08:19→16:16)
[2020-06-15] MEDS: BENZTROPINE MESYLATE (1 MG) 1 MG TABLET GT SCH ×2 (08:20→16:16)
[2020-06-15] MEDS: Z GUARD REMEDY 2 OZ OINT TP SCH (08:21)
[2020-06-15] MEDS: MEROPENEM 500 MG in IV NS 0.9% 100 ML IV SCH ×2 (09:58→22:02)
[2020-06-15] MEDS: POTASSIUM CHLORIDE 20 MEQ POWDER PACKET GT SCH ×2 (10:55→12:22)
[2020-06-15 12:00] VITALS: BP 106/60
[2020-06-15 16:00] VITALS: BP 109/68
[2020-06-15] MEDS: JEVITY 1.2 CAL 1,000 ML BOTTLE GT PRN ×2 (17:22→20:05)
--- NOTE | 2020-06-15 18:12 | NUR ---
NO RESIDUAL FROM G-TUBE FEEDING, INCREASED GTF TO NOW 50 ML/HR PER ORDERED BY RD GOAL IS TO INCREASE 60 ML/HR. PATIENT TOLERATED WELL NO SIGNS OF VOMITING.
--- NOTE | 2020-06-15 18:25 | NUR ---
RN CLOSE NOTES PATIENT IS AWAKE A/O X 1-2 IN BED WITH NO SIGNS OF DISTRESS ON 2L OF NASAL CANNULA. IV L UA#18G SL AND R UA CENTRAL LINE. TELE 55 HR WITH PVC ANTHONY. BEVERLY CATHETER INTACT. G-TUBE INTACT FEEDING JEVITY 1.2 AT 50 ML/HR. NO COMPLAINS OF PAIN AT THIS MOMENT. PATIENT REMAINED STABLE THROUGH OUT SHIFT. PATIENT KEPT CLEAN AND DRY. ALL NEEDS, CARE, TREATMENT AND MEDICATIONS ADMINISTERED ANTICIPATED PER ORDER. SAFETY MEASURES ARE APPLIED, BED IS LOW AND LOCKED. SIDE RAILS UP X 2 FOR SAFETY. CALL LIGHT WITHIN REACH. WILL ENDORSE TO THE NEXT PROCESS CONTROL BOARD OPERATOR.
--- NOTE | 2020-06-15 19:23 | NUR ---
PATIENT REMOVED R AU PICC LINE, IV L UA #18G INTACT SL. INFORMED DR. SALDANA, HE STATED OK TO USE PERIPHERAL IV. NOTED AND CARRIED OUT.
[2020-06-15 20:00] VITALS: BP 113/75
[2020-06-16] VITALS: BP 122/56
[2020-06-16 00:09] VITALS: BP 122/56
--- NOTE | 2020-06-16 04:45 | NUR ---
ENDING NOTES: confused orientated X1. will repeat questions or request many times over. Eye contact is present. He is pleasant. Forgetful noncompliant. Beginning of the shift on rounds found he had pulled out his picline from the right arm, no bleeding. GA@@ started right forearm and ATB resumed. Vanco trough at 1999 was 13. ABD BINDER on to protect GT for his tube feedings. Rate at this time is at goal rate 60 ml hr, no residual asp precautions maintained. He enjoys someone in his room and when the nurse is in the room he talks non stop.
[2020-06-16 04:53] VITALS: BP 115/72
[2020-06-16 06:00] VITALS: BP 115/72
[2020-06-16 08:00] VITALS: BP 149/81
--- NOTE | 2020-06-16 08:00 | NUR ---
OEM SALES MANAGER OPENING NOTES Received Patient resting in bed. A/O x 2. VS stable with no acute distress. Breathing even and unlabored on 2LPM via NC with no respiratory distress. Denies pain. No signs and symptoms of pain. Telemonitor in place and patent reading Afib with HR-87. 22g PIV on RFA intact, patent and flushing well. Gtube in place and patent with Jevity 1.2 infusing at 60cc/hr. Kent Cath in place and patent. Safety precautions in place. Bed locked and set to lowest position with side rails x 2 up. All needs rendered at this time. Call light within reach. Will continue to monitor.
[2020-06-16] MEDS: VANCOMYCIN 0.75 GM in IV D5W 250 ML IV SCH (08:07)
[2020-06-16] MEDS: GABAPENTIN 100 MG CAPSULE GT SCH ×3 (08:19→17:11)
[2020-06-16] MEDS: busPIRone 5 MG TABLET GT SCH ×3 (08:19→17:11)
[2020-06-16] MEDS: ASPIRIN 81 MG TAB.CHEW GT SCH (08:19)
[2020-06-16] MEDS: BENZTROPINE MESYLATE (1 MG) 1 MG TABLET GT SCH ×2 (08:19→17:11)
[2020-06-16] MEDS: Z GUARD REMEDY 2 OZ OINT TP SCH (08:20)
[2020-06-16 08:50] LABS: CARBON DIOXIDE 31 mmol/L (21-32); CHLORIDE 102 mmol/L (98-107); CREATININE 0.5 mg/dL (0.6-1.3); GLUCOSE 158 mg/dL (74-106); POTASSIUM 3.9 mmol/L (3.5-5.1); SODIUM SERUM 138 mmol/L (136-145); UREA NITROGEN, BLOOD 14 mg/dL (7-18)
[2020-06-16] MEDS: MEROPENEM 500 MG in IV NS 0.9% 100 ML IV SCH (09:46)
--- NOTE | 2020-06-16 18:50 | NUR ---
SOLID STATE TESTER NOTES Patient discharged for [facility] at this time. A/O x 2 with episodes of confusion and forgetfulness. Patient in stable condition. VS stable with no acute distress. Breathing even and unlabored on room air with no respiratory distress. Denies pain. No signs and symptoms of pain. Skin assessment photos taken and placed in chart. Kent Cath in place and patent. Gtube in place and patent with abdominal binder in place. BETTE Midline clean, intact, patent and flushing well. 22g PIV on RFA intact, patent and flushing well. Medication reconciliation and discharge orders reviewed and explained to Patient. Patient verbalizes understanding but forgetful. Patient will follow up with PCP in 1-2 weeks. All belongings with Patient. Patient picked up by Ambulance Transport. Report given to Eladio SIOMNS.
== END 2020-06-16 19:00 | DRG 280 ==
LOC: ER 17:40 → TELE 21:00
PROVIDERS: ADMIT Internal Medicine; ATTEND Internal Medicine
PROC: 05HY33Z Insertion of Infusion Device into Upper Vein, Percutaneous Approach (ICD-10-PCS; principal; 2020-06-16)
DX: I48.91 Unspecified atrial fibrillation (principal); J15.6 Pneumonia due to other Gram-negative bacteria; I21.A1 Myocardial infarction type 2; G93.41 Metabolic encephalopathy; J96.01 Acute respiratory failure with hypoxia; E87.2 Acidosis; K81.0 Acute cholecystitis; I50.32 Chronic diastolic (congestive) heart failure; I11.0 Hypertensive heart disease with heart failure; R00.1 Bradycardia, unspecified; I25.10 Atherosclerotic heart disease of native coronary artery without angina pectoris; R13.10 Dysphagia, unspecified; Z93.1 Gastrostomy status; I95.9 Hypotension, unspecified; E83.39 Other disorders of phosphorus metabolism; E87.6 Hypokalemia; E11.42 Type 2 diabetes mellitus with diabetic polyneuropathy; Z22.322 Carrier or suspected carrier of Methicillin resistant Staphylococcus aureus; L89.156 Pressure-induced deep tissue damage of sacral region; C44.311 Basal cell carcinoma of skin of nose
CPT/HCPCS: 36410; 36415; 71045-TC; 74018; 80048-TC; 80053-TC; 80202-TC; 83735-TC; 83880; 84100-TC; 84484-TC; 85025-TC; 87081-TC; A6253; C9803-CS; G0378; J2185; J3370; J7030; J7050; J7060; J7070; Q9963

== ENCOUNTER 2020-07-11 18:30 | Inpatient (IN) | payer MEDICARE, BC, OTHER ==
[~2020-07-11] VITALS: Ht 167.6 cm; Wt 61.2 kg
[~2020-07-11 18:30] MED LIST changes: -DIGO250T GT; -DILT240C88 GT
--- NOTE | 2020-07-11 18:50 | NUR ---
BIB PA FROM [facility]ARE [facility],LACERATION TO FOREHEAD, S/P UNWITNESSED FALL. PATIENT A/O2-3, BREATHING EVEN AND UNLABORED, NO SOB NOTED, NEEDS ATTENDED.
--- NOTE | 2020-07-11 19:00 | NUR ---
IV LINE ESTABLISHED ON LEFT HAND G20.
--- NOTE | 2020-07-11 19:15 | NUR ---
ENDORSED TO KRISTA SIMONS.
--- NOTE | 2020-07-11 19:29 | NUR ---
CALLED LAB REGARDING PCR COVID SWAB.
[2020-07-11] MEDS ORDERED: DILTIAZEM HCL CD 120 MG PO ONE (19:30)
--- NOTE | 2020-07-11 19:41 | NUR ---
BROUGHT TO CT
[2020-07-11] MEDS ORDERED: DILTIAZEM HCL CD 120 MG ONE (19:44)
--- NOTE | 2020-07-11 19:45 | NUR ---
CALLED NURSING SUP FOR TELE BED.
--- NOTE | 2020-07-11 19:57 | NUR ---
COVID SWABBED, SENT TO LAB. PCR. PT WILL BE RULE OUT DUE TO HIM COMING FROM [facility].
--- NOTE | 2020-07-11 20:05 | NUR ---
PT IN BED COMFORTABLY. VSS. PT AAOX4. STATED HE DOES NOT AMBULATE IN HIS FACILITY. PT HAS A G TUBE, LAC ON L SIDE OF FOREHEAD, AND A SKIN MOLE ON NOSE.
[2020-07-11 20:10] LABS: BASOPHILS % (AUTO) 0.5 % (0.0-2.0); EOSINOPHILS % (AUTO) 1.9 % (0.0-6.0); HEMATOCRIT 39 % (39-51); HEMOGLOBIN 12.5 g/dL (13.5-17.5); LYMPHOCYTES # (AUTO) 1.5 /CMM (0.8-4.8); LYMPHOCYTES % (AUTO) 23.1 % (20.0-44.0); MEAN CORPUSCULAR HGB CONC 32 g/dl (31.0-36.0); MEAN CORPUSCULAR VOLUME 90 fL (80-96); MONOCYTES # (AUTO) 0.8 /CMM (0.1-1.30); MONOCYTES % (AUTO) 12.8 % (2.0-12.0); NEUTROPHILS % (AUTO) 61.7 % (43.0-81.0); PLATELET COUNT (AUTO) 84 /CMM (150-450); RED BLOOD CELL COUNT(AUTO) 4.33 MIL/uL (4.5-6.0); WHITE BLOOD COUNT (AUTO) 6.4 K/uL (4.3-11.0)
[2020-07-11 20:32] LABS: CALCIUM, SERUM 9.3 mg/dL (8.5-10.1); CREATININE 0.8 mg/dL (0.6-1.3); POTASSIUM 4.4 mmol/L (3.5-5.1)
--- NOTE | 2020-07-11 20:32 | NUR ---
PT IS AAOX2. TO NAME AND . PT SEEMS TO BE CONFUSED TO WHERE HE IS. PT TAKING BP CUFF OFF.
[2020-07-11 20:46] LABS: ALBUMIN 3.4 g/dL (3.4-5.0); BAND % (MANUAL) 2 % (0.0-5.0); BILIRUBIN,DIRECT 0.2 mg/dL (0.0-0.2); BILIRUBIN,TOTAL 0.7 mg/dL (0.2-1.0); EOSINOPHILS % (MANUAL) 4 % (0-4); LYMPHOCYTES % (MANUAL) 31 % (16-48); MONOCYTES % (MANUAL) 8 % (0-11.0); NEUTROPHILS % (MANUAL) 52 (42-76); REACTIVE LYMPHOCYTES 3 % (0-0); TOTAL PROTEIN, SERUM 6.9 g/dL (6.4-8.2)
[2020-07-11] MEDS ORDERED: DILTIAZEM HCL 25 MG IV ONE (21:15)
--- NOTE | 2020-07-11 21:19 | NUR ---
PT HR 127, A FIB. AT BEDSIDE. WILL ORDER DILTIAZEM 5MG IVP NOW.
[2020-07-11] MEDS ORDERED: ONDANSETRON HCL/PF 4 MG/2 ML VIAL IVP PRN (21:30)
[2020-07-11] MEDS ORDERED: JEVITY 1.2 CAL 1,000 ML BOTTLE GT PRN (21:30)
[2020-07-11] MEDS ORDERED: Z GUARD REMEDY 2 OZ OINT TP PRN (21:30)
[2020-07-11] MEDS ORDERED: MAGNESIUM HYDROXIDE 30 ML UDC PO PRN (21:30)
[2020-07-11] MEDS ORDERED: DILTIAZEM HCL 25 MG IV IV ONE (21:30)
[2020-07-11] MEDS ORDERED: MAG HYDROX/AL HYDROX/SIMETH 30 ML UDC PO PRN (21:30)
[2020-07-11] MEDS ORDERED: BISACODYL SUPP (10 MG) 10 MG/SUPP.RECT SUPP.RECT RC PRN (21:30)
--- NOTE | 2020-07-11 21:40 | NUR ---
NURSING SUP GAVE 207-1.
--- NOTE | 2020-07-11 21:44 | NUR ---
PT RESTING IN BED COMFORTABLY. VSS.
--- NOTE | 2020-07-11 22:21 | NUR ---
REPORT GIVEN TO SRINATH SIMONS FOR [facility]
--- NOTE | 2020-07-11 22:24 | NUR ---
PT TRANSFERED PER [facility]
[2020-07-11 22:25] VITALS: BP 99/73
--- NOTE | 2020-07-11 22:25 | NUR ---
MEAT WASHER OPENING NOTES PATIENT ADMITTED FROM ER FOR SYNCOPE. PER ER NURSE PCR RESULTS PENDING. PATIENT ARRIVED VIA GURNEY; UNABLE TO AMBULATE AT THIS TIME. A/OX1-2; CONFUSED. STABLE ON RA; NO S/S OF ACUTE RESPIRATORY DISTRESS; BREATHING IS EVEN AND UNLABORED. NO C/O PAIN AT THIS TIME. TELE MONITOR READING A-FIB, CONTROLLED, HEART RATE 100. IV PRESENT ON LEFT HAND, SIZE 20, INTACT & PATENT. UPON SKIN ASSESSMENT, OPEN WOUND PRESENT ON LEFT SIDE OF NOSTRIL AND LACERATION ON FOREHEAD COVERED WITH STERISTRIPS; PHOTOS TAKEN AND PLACED IN CHART. GTUBE PRESENT. NO BELONGINGS WITH PATIENT. ADMITTING ORDERS RECEIVED FROM SAFETY DEPOSIT SUPERVISOR ABEL ROBLES. SAFETY MEASURES IN PLACE AND PATIENT'S NEEDS MET. BED LOCKED, ALARM ON, HOB ELEVATED, SIDE RAILS X3, CALL LIGHT WITHIN REACH. WILL CONTINUE TO MONITOR. Addendum: 07/12/20 at 0028 by SRINATH NEWMAN RN MEAT WASHERCENTER REP NOTES
--- NOTE | 2020-07-11 22:31 | NUR ---
INDUSTRIAL CONTROLS TECHNICIAN NOTES SACRAL REDNESS PRESENT; MEPILEX APPLIED AND WOUND CONSULT ORDERS IN PLACE. WILL CONTINUE TO MONITOR AND PROVIDE TURNING/REPOSITIONING Q2HR.
[2020-07-11] MEDS: BENZTROPINE MESYLATE (1 MG) 1 MG TABLET GT SCH (23:17)
[2020-07-11] MEDS: IV NS 0.9% 1,000 ML IV PRN (23:18)
[2020-07-11 23:25] VITALS: BP 99/73
[2020-07-12] VITALS (8 sets, daily range): BP systolic 100–115; BP diastolic 55–72
[2020-07-12] MEDS ORDERED: JEVITY 1.2 CAL 1,000 ML BOTTLE GT PRN (01:30)
--- NOTE | 2020-07-12 06:45 | NUR ---
SCROLL SHEAR OPERATOR NOTES PATIENT REFUSED AM LAB. EXPLAINED TO PATIENT NEED FOR BLOOD DRAW HOWEVER PATIENT STILL REFUSES.
--- NOTE | 2020-07-12 06:52 | NUR ---
GLOBE CHANGER CLOSING NOTES PATIENT AWAKE IN BED. A/OX1. STABLE ON RA; NO S/S OF ACUTE RESPIRATORY DISTRESS; BREATHING IS EVEN AND UNLABORED. NO C/O PAIN. TELE MONITOR READING A-FIB, HEART RATE 79. IV ON LEFT HAND SIZE 20, INTACT & PATENT WITH NS RUNNING AT 75 ML/HR. GTUBE FEEDING WITH JEVITY 1.2 RUNNING AT 60 ML/HR; TOLERATING WELL. SAFETY MEASURES IN PLACE AND PATIENT'S NEEDS MET. BED LOCKED, ALARM ON, HOB ELEVATED, SIDE RAILS X3, CALL LIGHT WITHIN REACH. WILL ENDORSE TO DAY SHIFT RN PLAN OF CARE.
--- NOTE | 2020-07-12 07:20 | NUR ---
METAL LEAF LAYER NOTES PATIENT RECEIVED IN BED, ALERT AND ORIENTED X 1, ENDORSED BY NIGHT TIME BABYSITTER RN PATIENT REFUSED AM LABS, WILL TRY AGAIN WITH CAMPUS COORDINATOR. ON ROOM AIR WITH NO SIGNS OF RESPIRATORY DISTRESS, WITH EVEN NON-LABORED BREATHING. ON CRADLE PLACER, A-FIB 100'S. PATIENT PRESENTS WITH NO PAIN OR DISCOMFORT AT THIS TIME. IV ACCESS INTACT AND PATENT, SKIN WARM AND DRY TO TOUCH. G-TUBE FEEDING INTACT AND INFUSING JEVITY 60ml/hr. ISOLATION PRECAUTIONS IMPLEMENTED. SAFETY PRECAUTIONS IMPLEMENTED WITH BED LOCKED, BED IN THE LOWEST POSITION, BILATERAL SIDE RAILS UP, BED ALARM ON, AND CALL LIGHT WITHIN EASY REACH OF PATIENT. WILL CONTINUE TO MONITOR.
[2020-07-12] MEDS: busPIRone 5 MG TABLET GT SCH ×3 (08:47→16:33)
[2020-07-12] MEDS: ASPIRIN 81 MG TAB.CHEW GT SCH (08:47)
[2020-07-12] MEDS: GABAPENTIN 300 MG CAPSULE GT SCH ×3 (08:47→16:33)
[2020-07-12] MEDS: BENZTROPINE MESYLATE (1 MG) 1 MG TABLET GT SCH ×2 (08:47→16:33)
[2020-07-12] MEDS: IV NS 0.9% 1,000 ML IV PRN (08:59)
[2020-07-12] MEDS ORDERED: ENOXAPARIN SODIUM 30 MG/0.3 ML DISP.SYRIN SQ SCH (09:00)
--- NOTE | 2020-07-12 09:18 | NUR ---
TAPING FOREMAN NOTES HELD PATIENT'S LOVENOX DUE TO LOW PLATELETS, INFORMED DR. SALDANA, WILL CONTINUE TO MONITOR.
[2020-07-12 10:53] LABS: CALCIUM, SERUM 8.5 mg/dL (8.5-10.1); CARBON DIOXIDE 28 mmol/L (21-32); CHLORIDE 103 mmol/L (98-107); CREATININE 0.7 mg/dL (0.6-1.3); GLUCOSE 115 mg/dL (74-106); MAGNESIUM 2.1 mg/dL (1.8-2.4); PHOSPHORUS 2.8 mg/dL (2.5-4.9); POTASSIUM 3.9 mmol/L (3.5-5.1); SODIUM SERUM 137 mmol/L (136-145); UREA NITROGEN, BLOOD 23 mg/dL (7-18)
[2020-07-12 10:55] LABS: CHOLESTEROL 107 mg/dL (<200); HDL CHOLESTEROL 34 mg/dL (40-60); LDL 65 mg/dL (0-99); TRIGLYCERIDES 65 mg/dL (30-150)
[2020-07-12 11:00] LABS: BASOPHILS % (AUTO) 0.5 % (0.0-2.0); EOSINOPHILS % (AUTO) 2.6 % (0.0-6.0); HEMATOCRIT 34 % (39-51); LYMPHOCYTES # (AUTO) 1.7 /CMM (0.8-4.8); LYMPHOCYTES % (AUTO) 27.6 % (20.0-44.0); MEAN CORPUSCULAR HGB CONC 32 g/dl (31.0-36.0); MEAN CORPUSCULAR VOLUME 91 fL (80-96); MONOCYTES # (AUTO) 0.9 /CMM (0.1-1.30); MONOCYTES % (AUTO) 14.3 % (2.0-12.0); NEUTROPHILS # (AUTO) 3.4 /CMM (1.8-8.9); PLATELET COUNT (AUTO) 79 /CMM (150-450); RED BLOOD CELL COUNT(AUTO) 3.79 MIL/uL (4.5-6.0); WHITE BLOOD COUNT (AUTO) 6.1 K/uL (4.3-11.0)
[2020-07-12 11:11] LABS: EOSINOPHILS % (MANUAL) 3 % (0-4); LYMPHOCYTES % (MANUAL) 40 % (16-48); MONOCYTES % (MANUAL) 5 % (0-11.0); NEUTROPHILS % (MANUAL) 51 (42-76)
--- NOTE | 2020-07-12 14:35 | NUR ---
DATA PROCESSING EQUIPMENT REPAIRER NOTES PATIENT TRANSFERRED TO CLEAN UNIT TO ROOM 309-1 DUE TO COVID/PCR RESULTS NEGATIVE. REPORT GIVEN FARZANA SIMONS.
--- NOTE | 2020-07-12 14:36 | NUR ---
DIGITAL AD TRAFFICKER NOTES Received Patient resting in bed. A/O x 1, episodes of confusion. VS stable with no acute distress. Breathing even and unlabored on room air with no respiratory distress. Denies pain. No signs and symptoms of pain. Telemonitor in place and patent reading controlled Afib with HR-68. Gtube in place and patent with Jevity infusing at 60ml/hr. 20g PIV on left hand intact, patent and flushing well with NS infusing at 75ml/hr. Safety precautions in place. Bed locked and set to lowest position with side rails x 2 up. All needs rendered at this time. Call light within reach. Will continue to monitor.
[2020-07-12] MEDS: VITAMINS A AND D 56.7 GM TUBE TP SCH (16:40)
--- NOTE | 2020-07-12 18:33 | NUR ---
ADVOCACY DIRECTOR CLOSING NOTES Patient resting in bed. A/O x 1, episodes of confusion. VS stable with no acute distress. Breathing even and unlabored on room air with no respiratory distress. Denies pain. No signs and symptoms of pain. Telemonitor in place and patent reading controlled Afib with HR-88. Gtube in place and patent with Jevity infusing at 60ml/hr. 20g PIV on left hand intact, patent and flushing well with NS infusing at 75ml/hr. Safety precautions in place. Bed locked and set to lowest position with side rails x 2 up. All needs rendered at this time. Call light within reach. Will endorse plan of care to oncoming shift.
--- NOTE | 2020-07-12 19:25 | NUR ---
BOILER MAKER OPENING NOTES PATIENT RECEIVED RESTING IN BED COMFORTABLY; A/OX1, CONFUSED; BREATHING EVEN AND UNLABORED, ON ROOM AIR; TOLERATING WELL; NO SOB NOTED; TELE MONITOR READS A.FIB HR 60S; L HAND #20 INTACT AND PATENT, PROTECTED WITH MEPILEX; G TUBE IN PLACE, COVERED WITH BINDER D/T PATIENT CONFUSION PER AM SHIFT; JEVITY INFUSING AT 60ML/HR, PER MD ORDERS, HOLD FEEDING AT 2200 AND RESTART FEEDING AT 0200; CHARGE NURSE AWARE; SAFETY PRECAUTIONS IMPLEMENTED; BED LOCKED IN LOW POSITION; SIDE RAILSX2; WILL CONT TO MONITOR
[2020-07-12] MEDS: MORPHINE SULFATE INJ 2 MG/ML DISP.SYRIN IV PRN (22:54)
--- NOTE | 2020-07-12 23:05 | NUR ---
EMERGENCY MEDICAL DISPATCHER NOTES PER WHEEL TRUING MACHINE TENDER, PATIENT AFIB WITH 170S - 180S BPM; PATIENT REPORTED HE IS IN PAIN AND HAS NOT RECEIVED ANY PATIENT MEDICATION; PATIENT FRUSTRATED/AGGRAVATED; MORPHINE ADMINISTERED PER MD ORDER; WILL CONT TO ASSESS/MONITOR
[2020-07-13] VITALS (75 sets, daily range): BP systolic 53–193; BP diastolic 27–113
--- NOTE | 2020-07-13 00:50 | NUR ---
SECRET CODE EXPERT NOTES PER SUPERVISOR [employer], PATIENT HR STILL ELEVATED, AFIB 180S; TELE BOX CHANGED AND LEADS CHANGED, STILL AFIB 180S; PREVIOUS EKGS SHOW HIGHEST BPM OF 110; CHARGE NURSE AWARE; PER CHARGE NURSE, STAT EKG; AWAITING RESULTS OF EKG AND WILL CONT TO MONITOR VITALS 0000 BP: 84/63 HR (PER MACHINE) 74, PULSE UPON PALPATION 85BPM; rR: 30 TEMP: 98.6 SP02: 96%
--- NOTE | 2020-07-13 01:17 | NUR ---
CONTROL ANALYST NOTES UPDATED DRIVER'S LICENSE REVIEWING OFFICER ABEL DORSEY NP REGARDING PATIENT AND EKG RESULTS; PER ABEL, CONTINUE TO MONITOR PATIENT; AND GIVE NS 250CC X1; ORDERS RECEIVED AND CARRIED OUT; CHARGE NURSE AWARE; WILL CONT TO MONITOR;
[2020-07-13] MEDS ORDERED: IV NS 0.9% 250 ML IV ONE (01:30)
[2020-07-13] MEDS: IV NS 0.9% 1,000 ML IV PRN ×3 (03:35→15:14)
--- NOTE | 2020-07-13 03:40 | NUR ---
DECONTAMINATION WORKER NOTES PATIENT DOES NOT WANT IVF RUNNING WHILE HE TRIES TO SLEEP, PATIENT REPORTED HE KEEPS ON URINATING A LOT AND DOES NOT WANT TO CONTINUOUSLY WAKE UP; PATIENT INFORMED ON RISKS/BENEFITS; PATIENT VERBALIZED HE IS ABLE TO DRINK WATER ON HIS OWN BUT VERBALIZED UNDERSTANDING; WILL CONT TO MONITOR
--- NOTE | 2020-07-13 03:47 | NUR ---
CRITICAL POWER INSTALL TECHNICIAN NOTES PER CLAIMS COLLECTOR ABEL DORSEY, ADMINISTER CARDIZEM 5MG IV ONCE, SLOWLY; FOR EKG RESULT/A.FIB; ORDERS RECEIVED; AWAITING PHARMACY TO VERIFY MEDICATION; CURRENT BP: 94/55 HR: 170S, PATIENT RECEIVING NS @ 75ML/HR, TOLERATING IVF WELL; WILL CONT TO MONITOR Addendum: 07/13/20 at 0357 by VERONICA KUHN RN MED UNAVAILABLE IN UNIT; CHARGE NURSE AWARE; FAXED ORDER TO NURSING GROUNDWATER PROGRAMS DIRECTOR; AWAITING MED; INFORMED BEHAVIORAL HEALTH COUNSELOR REGARDING CARDIZEM IV ORDER; WILL INFORM ONCE MEDICATION IS GIVEN FOR PRINTS OF TELE MONITOR READINGS; CHARGE NURSE AWARE
[2020-07-13] MEDS ORDERED: DILTIAZEM HCL 25 MG IV IV ONE (04:00)
[2020-07-13] MEDS ORDERED: DILTIAZEM HCL 50 MG IV ONE (04:14)
--- NOTE | 2020-07-13 04:49 | NUR ---
RIVERBOAT CAPTAIN NOTES PER ABEL ANDERSON, PORFIRIO BENOIT, NURSING MANAGER INVESTIGATIONS RONAK KEATING CAME TO UNIT TO DELIVER MEDICATION; UPON ASSESSMENT OF PATIENT, LETHARGIC, DIFFICULT TO AROUSE; BP 77/49 AND RECHECKED 93/49; CY DUCKWORTH, CHARGE NURSE AWARE; BLOOD SUGAR CHECKED, 203; INFORMED ABEL OF PATIENT CONDITION; RAPID RESPONSE CALLED; PER ABEL ANDERSON, IF NEEDED, OKAY TO TRANSFER PATIENT TO ICU 256; PATIENT TRANSFERRED TO ICU ROOM 256, PER ACLS PROTOCOL; ACCOMPANIED BY ED, RN, ESHA RN, AND NATALI, RT; CHARGE NURSES AWARE; NURSING MANAGER INVESTIGATIONS AWARE; MD AWARE; REPORT GIVEN TO RONAK MURPHY FOR GEOFFREY ALL BELONGINGS SENT WITH PATIENT Addendum: 07/13/20 at 0621 by VERONICA KUHN RN 84 YEAR OLD MALE, ADMITTED 07/11 S/P UNWITNESSED FALL FROM [facility]; PATIENT ADMITTED FOR SYNCOPE; PATIENT HAS HX OF DEMENTIA, PARKINSONS, AFIB, HTN; BASAL CELL CARCINOMA, DIASTOLIC HF, DYSPHAGIA, POLYNEUROPATHY; CHRONIC ENCEPHALOPATHY; AND DM; APPROX 2254, PATIENT COMPLAINT OF NECK PAIN, MORPHINE ADMINISTERED; HR ELEVATED 170S, MORPHINE DID NOT HELP, UNCONTROLLED AFIB CONTINUED, MD NOTIFIED AND CHARGE NURSE MADE AWARE; MONITORING FREQUENTLY; PATIENT HEART RATE FLUCTUATING THROUGHOUT SHIFT; EKG ORDERED; REFLECTED 170BPM AFIB, PER , ORDER 250CC BOLUS X1 BAG; ORDERS CARRIED OUT; BP STILL LOW, 0100, MONITORING PATIENT, BP STILL LOW, CONTINUED NS PER ORDER; ORDER CY, AWAITED NURSING MANAGER INVESTIGATIONS TO DELIVER MED ON UNIT; 0400, PATIENT CONDITION CHANGED, DIFFICULT TO AROUSE WITH STERNAL RUB; CHARGE NURSE AND MD NOTIFIED; RAPID REPONSE CALLED 0449 AND CARRIED OUT ORDERS; PER MD, IF PATIENT NEEDS TO BE TRANSFERRED TO ICU, OKAY TO TRANSFER; AND ORDERED STAT ABGS; PATIENT TRANSFERRED TO ROOM 256; MD AWARE, CHARGE NURSES AWARE; NURSING MANAGER INVESTIGATIONS AWARE; RAPID RESPONSE ENDED 0502
[2020-07-13 05:05] LABS: ABG BASE EXCESS -4.1 mmol/L; ABG OXYGEN SATURATION 95.8 % (92.0-98.5); ABG PCO2 23.5 mmHg (35.0-45.0); ABG PH 7.483 (7.350-7.450); ABG PO2 81.5 mmHg (75.0-100.0); AaDO2 104.8 mmHg; COHb 1.1 % (0.5-1.5); MetHb 0.2 % (0.0-1.5); O2Hb 94.6 % (94.0-97.0); SITE, ABG Left Radial; VENT MODE, BG N/C 30%
[2020-07-13] MEDS ORDERED: AMIODARONE 150 MG/3 ML VIAL IV ONE (05:18)
[2020-07-13] MEDS ORDERED: AMIODARONE 450 MG in IV D5W 250 ML IV PRN (05:30)
[2020-07-13] MEDS ORDERED: MAG HYDROX/AL HYDROX/SIMETH 30 ML UDC GT PRN (05:30)
[2020-07-13] MEDS ORDERED: MAGNESIUM HYDROXIDE 30 ML UDC GT PRN (05:30)
[2020-07-13] MEDS ORDERED: AMIODARONE 150 MG in IV D5W 100 ML IV ONE (05:30)
[2020-07-13 05:57] LABS: BASOPHILS # (AUTO) 0.1 /CMM (0.0-0.2); BASOPHILS % (AUTO) 0.6 % (0.0-2.0); EOSINOPHILS % (AUTO) 0.1 % (0.0-6.0); HEMATOCRIT 38 % (39-51); HEMOGLOBIN 12.4 g/dL (13.5-17.5); LYMPHOCYTES # (AUTO) 1.1 /CMM (0.8-4.8); MEAN CORPUSCULAR HGB CONC 32 g/dl (31.0-36.0); MEAN CORPUSCULAR VOLUME 90 fL (80-96); MONOCYTES # (AUTO) 1.8 /CMM (0.1-1.30); MONOCYTES % (AUTO) 9.4 % (2.0-12.0); NEUTROPHILS # (AUTO) 15.7 /CMM (1.8-8.9); NEUTROPHILS % (AUTO) 83.9 % (43.0-81.0); PLATELET COUNT (AUTO) 82 /CMM (150-450); RED BLOOD CELL COUNT(AUTO) 4.29 MIL/uL (4.5-6.0); WHITE BLOOD COUNT (AUTO) 18.7 K/uL (4.3-11.0)
[2020-07-13] MEDS ORDERED: PHENYLEPHRINE 10 MG/ML VIAL ONE (05:58)
[2020-07-13] MEDS: PHENYLEPHRINE 50 MG in IV NS 0.9% 245 ML IV PRN ×2 (06:05→14:02)
[2020-07-13 06:08] LABS: CALCIUM, SERUM 7.7 mg/dL (8.5-10.1); CARBON DIOXIDE 20 mmol/L (21-32); CHLORIDE 106 mmol/L (98-107); CREATININE 1.4 mg/dL (0.6-1.3); GLUCOSE 235 mg/dL (74-106); MAGNESIUM 1.9 mg/dL (1.8-2.4); PHOSPHORUS 3.4 mg/dL (2.5-4.9); POTASSIUM 4.8 mmol/L (3.5-5.1); SODIUM SERUM 138 mmol/L (136-145); UREA NITROGEN, BLOOD 43 mg/dL (7-18)
--- NOTE | 2020-07-13 06:32 | NUR ---
pedicurist, pt being transfer from med/surg.s/p rapid respond. pt is lethargic. does not follow commands oxygen 2l via nasal cannula. sat 97%. no acute distress noted, director cardiac showing afib, iv rt uppere arm 20g. lt hand 20g. ivf ns 75ml/h, amiodarone bolus given. then imcg/kg/min, selvin 0.5mog/kg/min, afebrile. will continue to monitor vitals.
--- NOTE | 2020-07-13 07:15 | NUR ---
EXPLOSIVE OPERATOR SUPERVISOR NOTES RECEIVED PATIENT RESPONSIVE TO PAIN STIMULI , LETHARGIC , NOT IN ACUTE DISTRESS , RESPIRATIONS EVEN AND UNLABORED WITH SPO2 OF 93% VIA 2LPM NC , AFIB 139 ON BEDSIDE MONITOR , GT PATENT AND INTACT WITH JEVITY HELD BY PM NURSE , WILL RESUME FEEDING , IV OF L HAND # 20 WITH AMIO DRIP @ 33.33ML/HR , NOESYNEPHRINE @ 0.01MCG/KG/MIN WITH NS @ 75ML/HR INFUSING WELL , JOHN # 20 PATENT AND INTACT . ALL NEEDS ATTENDED , WILL CONTINUE TO MONITOR .
--- NOTE | 2020-07-13 08:45 | NUR ---
CLINICAL DATA RESEARCH NOTES SPOKE WITH DR ELIZONDO NOTIFIED PT IS HAVING AFIB RVR 170'S , NOTIFIED LATEST BLOOD PRESSURE OF 86/59 , ON NEOSYNEPRINE @ 0.1MCG/KG/MIN , NOTED WITH TREMORS , AFEBRILE , MD AWARE .
[2020-07-13] MEDS: ASPIRIN 81 MG TAB.CHEW GT SCH (08:49)
[2020-07-13] MEDS: busPIRone 5 MG TABLET GT SCH ×3 (08:49→16:57)
[2020-07-13] MEDS: BENZTROPINE MESYLATE (1 MG) 1 MG TABLET GT SCH ×2 (08:49→16:57)
[2020-07-13] MEDS: GABAPENTIN 300 MG CAPSULE GT SCH ×3 (08:49→16:57)
[2020-07-13] MEDS: VITAMINS A AND D 56.7 GM TUBE TP SCH ×2 (08:57→17:00)
[2020-07-13 09:05] LABS: BAND % (MANUAL) 1 % (0.0-5.0); EOSINOPHILS % (MANUAL) 1 % (0-4); LYMPHOCYTES % (MANUAL) 10 % (16-48); MONOCYTES % (MANUAL) 6 % (0-11.0); NEUTROPHILS % (MANUAL) 82 (42-76)
--- NOTE | 2020-07-13 09:14 | NUR ---
GRINDER OPERATOR TOOL NOTES RECEIVED A CALL FROM DR DUNN REGARDING VENOUS DOPPLER RESULTS THAT PT IS POSITIVE WITH DVT BLE .
--- NOTE | 2020-07-13 09:27 | NUR ---
HAND CANDY CUTTER NOTES NOTIFIED DR ELIZONDO REGARDING CHEST XRAY , VENOUS AND ARTERIAL DOPPLER RESULTS , MD AWARE , PER MD CONTINUE LOVENOX ,
--- NOTE | 2020-07-13 09:35 | NUR ---
LINUX SYSTEM ADMINISTRATOR NOTES NOTIFIED DR ELIZONDO THAT PT CONVERTED TO AFLUTTER 180'S , DISCUSSED THAT LOVENOX WAS DISCONTINIUED BECAUSE OF LOW PLT , PER MD HE WILL TALK TO DR IZAGUIRRE .
[2020-07-13 09:55] LABS: THYROID STIMULATING HORMONE 1.332 uIU/mL (0.358-3.74)
[2020-07-13] MEDS: ACETAMINOPHEN 325 MG TABLET PO PRN (11:07)
[2020-07-13] MEDS: DIGOXIN INJ 0.5 MG/2 ML AMPUL IV SCH ×3 (11:07→23:52)
[2020-07-13] MEDS ORDERED: IV NS 0.9% 1,000 ML IV ONE ×2 (11:40→15:30)
--- NOTE | 2020-07-13 11:43 | NUR ---
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 TEMP OF 101 TYLENOL PRN GIVEN , COOLING MEASURES RENDERED , NOTIFIED DR SALDANA , VERIFY IF HE WANTS TO DO A MACDONALD CULTURE , PER MD OK WITH MACDONALD CULTURE , OK FOR PICC LINE AND BEVERLY INSERTION WELL .
[2020-07-13] MEDS ORDERED: ZOSYN IVPB 3.375 G in IV D5W 50ml IV SCH (12:00)
--- NOTE | 2020-07-13 12:00 | NUR ---
CLINICAL FELLOW NOTES PLACED PT ON 8LPM SIMPLE MASK DUE TO LOW SPO2 OF 88% ON 4LPM NC , WILL CONTINUE TO MONITOR
[2020-07-13 12:51] LABS: URINE TOTAL PROTEIN 51.1 mg/dL (0-11.9)
[2020-07-13 13:06] LABS: BILIRUBIN,URINE NEGATIVE (NEGATIVE); BLOOD, URINE LARGE Ery/uL (NEGATIVE); COLOR,URINE YELLOW (YELLOW); LEUKOCYTE ESTERASE ,URINE NEGATIVE (NEGATIVE); NITRITE, URINE NEGATIVE (NEGATIVE); PROTEIN,URINE 30 mg/dl (NEGATIVE); UGLUCOSE NEGATIVE (NEGATIVE); UROBILINOGEN,URINE 0.2 EU/dL (0.2)
[2020-07-13 13:07] LABS: RBC,URINE TOO NUMEROUS TO COUN /HPF (0-2)
[2020-07-13 13:08] LABS: BACTERIA,URINE Rare /HPF (None Seen); SQUAMOUS EPITHELIAL CELL,UR Few /HPF (None Seen)
[2020-07-13 13:26] LABS: EOSINOPHIL,URINE None Seen
--- NOTE | 2020-07-13 15:09 | NUR ---
SHOWROOM EXECUTIVE DIRECTOR NOTES NOTIFIED DR ELIZONDO THAT PT IS ON MAX DOSE OF NEOSYNEPRINE WITH SBP OF 80'S , PER MD GIVE 1L BOLUS FOR 2 HOURS AND MAY START LEVOPHED .
[2020-07-13] MEDS: NOREPINEPHRINE 8 MG in IV NS 0.9% 242 ML IV PRN (15:27)
[2020-07-13] MEDS: PHENYLEPHRINE 100 MG in IV NS 0.9% 240 ML IV PRN (17:31)
[2020-07-13] MEDS ORDERED: JEVITY 1.2 CAL 1,000 ML BOTTLE GT PRN (18:00)
[2020-07-13] MEDS: JEVITY 1.2 CAL 1,000 ML BOTTLE GT PRN (18:24)
--- NOTE | 2020-07-13 19:10 | NUR ---
PLASTIC WELDER OPENING NOTES: Rec'd pt in bed, lethargic, responding to painful stimuli. On 8LPM O2 via mask, no SOB or resp distress noted. Breathing even and unlabored. A-flutter on tele monitor. BETTE PICC line patent and flushing. Andrey infusing at 3mcg/kg/min. Will titrate per protocol. NS infusing at 125ml/hr. Dressing c/d/i. GT patent and flushed with minimal residual noted. Jevity infusing at 60ml/hr tolerating well. Kent in place patent and draining urine via gravity. Safety measures in place. Will continue to monitor.
--- NOTE | 2020-07-13 19:15 | NUR ---
PHARMACY TECHNICIAN PROGRAM DIRECTOR NOTES PATIENT STABLE AT THIS TIME , NO ACUTE EVENTS NOTED , LETHARGIC RESPONSIVE TO PAIN STIMULI , NOT IN ACUTE DISTRESS , RESPIRATIONS EVEN AND UNLABORED WITH SPO2 OF 93% VIA SIMPLE MASK @ 8LPM , AFLUTTER 112 ON BEDSIDE MONITOR , GT PATENT AND INTACT WITH JEVITY @60ML/HR TOLERATING WELL , BETTE PICCLINE WITH 3MCG/KG/MIN , NS @ 125ML/HR INFUSING WELL , ALL NEEDS ATTENDED , REPORT GIVEN TO NAUN FOR CONTINUITY OF CARE .
[2020-07-13] MEDS: PIPERACILLIN /TAZOBACTAM 3.375 G in IV D5W 100 ML IV SCH (20:03)
[2020-07-13] MEDS: ENOXAPARIN SODIUM 60 MG/0.6 ML DISP.SYRIN SQ SCH (20:52)
--- NOTE | 2020-07-13 23:00 | NUR ---
TRANSPORTATION DISPATCH MANAGER NOTE: BP noted as 73/35, HR 109. Levo started again at 0.1mcg/kg/min. Will titrate per protocol. Will continue to monitor.
[2020-07-14] VITALS (96 sets, daily range): BP systolic 50–155; BP diastolic 27–129
[2020-07-14] MEDS: PHENYLEPHRINE 100 MG in IV NS 0.9% 240 ML IV PRN ×3 (00:28→16:46)
[2020-07-14] MEDS: IV NS 0.9% 1,000 ML IV PRN (01:34)
[2020-07-14] MEDS: PIPERACILLIN /TAZOBACTAM 3.375 G in IV D5W 100 ML IV SCH ×2 (03:30→13:02)
[2020-07-14 04:53] LABS: BASOPHILS # (AUTO) 0.1 /CMM (0.0-0.2); BASOPHILS % (AUTO) 0.1 % (0.0-2.0); HEMATOCRIT 35 % (39-51); HEMOGLOBIN 10.9 g/dL (13.5-17.5); LYMPHOCYTES % (AUTO) 4.2 % (20.0-44.0); MEAN CORPUSCULAR HGB CONC 31 g/dl (31.0-36.0); MEAN CORPUSCULAR VOLUME 91 fL (80-96); MONOCYTES # (AUTO) 2.4 /CMM (0.1-1.30); MONOCYTES % (AUTO) 5.2 % (2.0-12.0); NEUTROPHILS # (AUTO) 42.2 /CMM (1.8-8.9); NEUTROPHILS % (AUTO) 90.5 % (43.0-81.0); PLATELET COUNT (AUTO) 74 /CMM (150-450); RED BLOOD CELL COUNT(AUTO) 3.85 MIL/uL (4.5-6.0)
[2020-07-14 05:08] LABS: ALANINE AMINOTRANSFERASE 14 U/L (12-78); ALKALINE PHOSPHATASE 108 U/L (46-116); ASPARTATE AMINOTRANSFERASE 15 U/L (15-37); BILIRUBIN,TOTAL 0.4 mg/dL (0.2-1.0); CALCIUM, SERUM 7.7 mg/dL (8.5-10.1); CARBON DIOXIDE 22 mmol/L (21-32); CHLORIDE 109 mmol/L (98-107); CREATININE 1.4 mg/dL (0.6-1.3); GLUCOSE 183 mg/dL (74-106); MAGNESIUM 1.9 mg/dL (1.8-2.4); PHOSPHORUS 2.3 mg/dL (2.5-4.9); POTASSIUM 3.7 mmol/L (3.5-5.1); SODIUM SERUM 142 mmol/L (136-145); TOTAL PROTEIN, SERUM 4.9 g/dL (6.4-8.2); UREA NITROGEN, BLOOD 46 mg/dL (7-18)
[2020-07-14 05:14] LABS: CREATINE KINASE, TOTAL 29 U/L (39-308)
--- NOTE | 2020-07-14 05:15 | NUR ---
SURFACE GRINDER NOTE: Pt's BP 144/70. Levo turned off. Will continue to monitor.
[2020-07-14 05:30] LABS: WHITE BLOOD COUNT (AUTO) 46.7 K/uL (4.3-11.0)
[2020-07-14 05:34] LABS: LYMPHOCYTES % (MANUAL) 6 % (16-48); MONOCYTES % (MANUAL) 4 % (0-11.0); NEUTROPHILS % (MANUAL) 83 (42-76)
[2020-07-14 05:35] LABS: BAND % (MANUAL) 6 % (0.0-5.0); EOSINOPHILS % (MANUAL) 1 % (0-4)
[2020-07-14] MEDS: JEVITY 1.2 CAL 1,000 ML BOTTLE GT PRN (06:25)
--- NOTE | 2020-07-14 07:03 | NUR ---
REAL ESTATE VALUER CLOSING NOTES: Pt A&Ox1, remains on 8LPM O2 via mask, tolerating well. No SOB or resp distress noted throughout shift. A-fib on tele monitor. BETTE PICC line patent w/ NS infusing at 125ml/hr, Andrey infusing at 3mcg/kg/min. Dressing c/d/i. Jevity infusing at 60ml/hr, tolerating well. Kent in place patent and draining urine. No acute changes noted throughout shift. All due meds given as ordered. Kept clean/dry. Safety measures in place. Will endorse to oncoming nurse for GEOFFREY.
[2020-07-14] MEDS: ASPIRIN 81 MG TAB.CHEW GT SCH (09:29)
[2020-07-14] MEDS: GABAPENTIN 300 MG CAPSULE GT SCH ×3 (09:29→16:53)
[2020-07-14] MEDS: BENZTROPINE MESYLATE (1 MG) 1 MG TABLET GT SCH ×2 (09:29→16:53)
[2020-07-14] MEDS: MORPHINE SULFATE INJ 2 MG/ML DISP.SYRIN IV PRN (09:29)
[2020-07-14] MEDS: busPIRone 5 MG TABLET GT SCH ×3 (09:29→16:53)
[2020-07-14] MEDS: ENOXAPARIN SODIUM 60 MG/0.6 ML DISP.SYRIN SQ SCH ×2 (09:30→21:10)
[2020-07-14] MEDS: VITAMINS A AND D 56.7 GM TUBE TP SCH ×2 (09:31→16:53)
[2020-07-14] MEDS ORDERED: VANCOMYCIN 1 GM in IV D5W 250 ML IV ONE (11:00)
[2020-07-14] MEDS: DIGOXIN 0.125 MG TABLET GT SCH (13:03)
[2020-07-14] MEDS: NOREPINEPHRINE 8 MG in IV NS 0.9% 242 ML IV PRN (14:28)
[2020-07-14] MEDS ORDERED: NEUTRA PHOS 1 POWD.PACKET PO ONE (14:30)
--- NOTE | 2020-07-14 14:45 | NUR ---
REPORT GIVEN TO RICKI SIMONS TO TAKE OVER CARE OF PATIENT AT THIS TIME. EMILY INFUSING AT 3MCG/KG/MIN, LEVO STARTED AT 0.01 MCG/KG/MIN, NS IV FLUIDS DC'D THIS AM. PT CONFUSED, TALKING FREQUENTLY. PT WAS PULLING AT HIS OXYGEN MASK, PULLING OFF TELEMETRY WIRES AND GRABBING AT HIS BEVERLY CATHETER. RESTRAINTS ORDERED AND PUT ON PATIENT AT 0940 THIS AM. 1 BM THIS AM NOTED. PT CHECKED ON HOURLY AND PRN BY NURSING STAFF.
--- NOTE | 2020-07-14 19:10 | NUR ---
OBSTETRICIAN/GYNECOLOGIST OPENING NOTES: Rec'd pt awake in bed, A&Ox1, confused. On 8LPM O2 via mask, tolerating well. No SOB or resp distress noted. Breathing even and unlabored. Controlled a-fib on tele monitor. GT site patent and flushed. Jevity on hold due to high residuals noted. BETTE PICC line patent and flushed. NS infusing at 125ml/hr. Andrey infusing at 2.8mcg/kg/min. Will titrate per protocol. Bilateral soft wrist restraints in place. Will release per protocol. Kent in place patent and draining urine via gravity. Safety measures in place. Will continue to monitor.
[2020-07-14] MEDS ORDERED: MEROPENEM 500 MG in IV NS 0.9% 50 ML IV SCH (21:00)
--- NOTE | 2020-07-14 23:15 | NUR ---
BUSINESS CONTROL SPECIALIST NOTE: Pt placed on nasal cannula 4LPM as per CN. Pt tolerating well. O2 99-100%. Will continue to monitor.
[2020-07-15] VITALS (73 sets, daily range): BP systolic 83–165; BP diastolic 25–106
[2020-07-15] MEDS: PHENYLEPHRINE 100 MG in IV NS 0.9% 240 ML IV PRN (01:46)
[2020-07-15 04:45] LABS: BASOPHILS % (AUTO) 0.1 % (0.0-2.0); EOSINOPHILS % (AUTO) 0.1 % (0.0-6.0); HEMATOCRIT 29 % (39-51); HEMOGLOBIN 9.3 g/dL (13.5-17.5); LYMPHOCYTES # (AUTO) 1.3 /CMM (0.8-4.8); LYMPHOCYTES % (AUTO) 4.3 % (20.0-44.0); MEAN CORPUSCULAR HGB CONC 32 g/dl (31.0-36.0); MEAN CORPUSCULAR VOLUME 91 fL (80-96); MONOCYTES # (AUTO) 1.5 /CMM (0.1-1.30); MONOCYTES % (AUTO) 4.7 % (2.0-12.0); NEUTROPHILS # (AUTO) 28.3 /CMM (1.8-8.9); NEUTROPHILS % (AUTO) 90.8 % (43.0-81.0); PLATELET COUNT (AUTO) 54 /CMM (150-450); RED BLOOD CELL COUNT(AUTO) 3.22 MIL/uL (4.5-6.0)
[2020-07-15] MEDS: VANCOMYCIN 1 GM in IV D5W 250 ML IV SCH ×2 (05:00→23:07)
[2020-07-15 05:03] LABS: CARBON DIOXIDE 24 mmol/L (21-32); CHLORIDE 111 mmol/L (98-107); CREATININE 0.9 mg/dL (0.6-1.3); GLUCOSE 119 mg/dL (74-106); PHOSPHORUS 1.7 mg/dL (2.5-4.9); POTASSIUM 3.1 mmol/L (3.5-5.1); SODIUM SERUM 144 mmol/L (136-145); UREA NITROGEN, BLOOD 32 mg/dL (7-18)
[2020-07-15 05:04] LABS: WHITE BLOOD COUNT (AUTO) 31.2 K/uL (4.3-11.0)
[2020-07-15 05:36] LABS: BAND % (MANUAL) 6 % (0.0-5.0); LYMPHOCYTES % (MANUAL) 4 % (16-48); NEUTROPHILS % (MANUAL) 85 (42-76)
[2020-07-15 05:37] LABS: EOSINOPHILS % (MANUAL) 1 % (0-4); MONOCYTES % (MANUAL) 4 % (0-11.0); REACTIVE LYMPHOCYTES 0 % (0-0)
--- NOTE | 2020-07-15 07:10 | NUR ---
COAL SHOVELER CLOSING NOTES: No acute changes noted throughout shift. On 4LPM NC tolerating well. Afib/Aflutter on tele monitor. BETTE PICC intact w/ Andrey infusing at 0.8mcg/kg/min. Kent in place patent and draining urine. Kept clean/dry. All due meds given as ordered. Will endorse to oncoming nurse for GEOFFREY.
[2020-07-15] MEDS ORDERED: POTASSIUM PHOSPHATE MM 7.5 MMOL in IV NS 0.9% 100 ML IV SCH (07:30)
--- NOTE | 2020-07-15 08:00 | NUR ---
RN OPENING NOTE: RECEIVED PATIENT IN BED THIS MORNING. PATIENT IS AAOX1, CONFUSED. SATING WELL ON 4L/MIN VIA NC. AFIB IN THE 70S NOTED ON THE MONITOR. BEVERLY DRAINING URINE. GTF WITH 20CC RESIDUAL NOTED. BETTE PICC LINE, C/D/I, FLUSHING WELL, NO SIGNS OF COMPLICATIONS NOTED. SAFETY MEASURES IMPLEMENTED, BED IN LOWEST POSITION, LOCKED, SIDE RAILS UP, CALL LIGHT WITHIN REACH. WILL CONTINUE TO MONITOR PATIENT FOR CHANGES.
[2020-07-15] MEDS: ASPIRIN 81 MG TAB.CHEW GT SCH (08:14)
[2020-07-15] MEDS: MEROPENEM 500 MG in IV NS 0.9% 100 ML IV SCH ×2 (08:14→21:38)
[2020-07-15] MEDS: BENZTROPINE MESYLATE (1 MG) 1 MG TABLET GT SCH ×2 (08:14→16:22)
[2020-07-15] MEDS: GABAPENTIN 300 MG CAPSULE GT SCH ×3 (08:14→16:22)
[2020-07-15] MEDS: busPIRone 5 MG TABLET GT SCH ×3 (08:14→16:22)
[2020-07-15] MEDS: ENOXAPARIN SODIUM 60 MG/0.6 ML DISP.SYRIN SQ SCH ×2 (08:16→21:40)
[2020-07-15] MEDS: VITAMINS A AND D 56.7 GM TUBE TP SCH ×2 (08:55→16:22)
[2020-07-15] MEDS ORDERED: POTASSIUM CHLORIDE 20 MEQ POWDER PACKET GT ONE (10:00)
[2020-07-15] MEDS: DIGOXIN 0.125 MG TABLET GT SCH (12:50)
--- NOTE | 2020-07-15 16:50 | NUR ---
SPOKE WITH DR BUI, PATIENT WILL HAVE IVC FILTER PLACEMENT TOMORROW. ORDERS TO HOLD 07/16/20 AM DOSE OF LOVENOX, NPO AFTER MIDNIGHT, AND TO OBTAIN CONSENT FROM RESPONSIBLE DEMOCRAT.
--- NOTE | 2020-07-15 17:01 | NUR ---
CONTACTED DR BUI TO CALL PATIENT'S RESPONSIBLE GREEN PARTY TO EXPLAIN IVC FILTER PLACEMENT PROCEDURE TO OBTAIN CONSENT
--- NOTE | 2020-07-15 18:58 | NUR ---
CONSENT FOR IVC FILTER PLACEMENT RETRIEVED FROM PATIENT'S RP. CONSENT PLACED IN CHART.
--- NOTE | 2020-07-15 18:59 | NUR ---
RN CLOSING NOTE: PATIENT REMAINS IN BED. NO ACUTE DISTRESS NOTED AT THIS TIME. AFIB CONTROLLED IN THE 90S NOTED ON THE BEDSIDE MONITOR. WILL ENDORSE TO ONCOMING SHIFT ABOUT PATIENT'S PROCEDURE THE FOLLOWING DAY, TO REMAIN NPO AFTER MIDNIGHT, AND TO HOLD OFF ON AM LOVENOX. SAFETY MEASURES IMPLEMENTED, BED IN LOWEST POSITION, LOCKED, SIDE RAILS UP, CALL LIGHT WITHIN REACH. WILL ENDORSE TO ONCOMING SHIFT RN FOR CONTINUITY OF CARE.
--- NOTE | 2020-07-15 19:00 | NUR ---
patient remains in no acute distress in bed. patient is a/o x 1 with periods of confusion. patient has restraints with good pulses on bilateral radials. patient is on o2 via nasal cannula at 4 lpm and tolerating well. patient has gtube that is clean dry intact and patent with jevity tube feeding and tolerating well. left upper arm picc line is clean dry intact and patent with ns @ tko. bed in lower lock position with rails up x 2. call light within reach and all safety measures ensured and carried out.
[2020-07-15] MEDS: NEOMY SULF/BACITRAC ZN/POLY 15 GM TUBE TP SCH (22:00)
--- NOTE | 2020-07-15 22:00 | NUR ---
Patient continues to have high residuals at 375 and feeding turned off. will recheck at 0000
--- NOTE | 2020-07-15 23:00 | NUR ---
Patient vancomycin trough resulted with a level of 8. Vancomycin given to patient due to vancomycin trough level below 20.
[2020-07-16] VITALS (27 sets, daily range): BP systolic 101–137; BP diastolic 23–94
--- NOTE | 2020-07-16 | NUR ---
patient continues to have high residuals with 350. will recheck at 0400
--- NOTE | 2020-07-16 04:25 | NUR ---
patient continues to have high residuals of 350 from Gtube. will not continue with feeding at this time. will continue to monitor.
[2020-07-16 04:43] LABS: BASOPHILS % (AUTO) 0.1 % (0.0-2.0); EOSINOPHILS % (AUTO) 0.1 % (0.0-6.0); HEMATOCRIT 31 % (39-51); HEMOGLOBIN 10.1 g/dL (13.5-17.5); LYMPHOCYTES # (AUTO) 0.9 /CMM (0.8-4.8); MEAN CORPUSCULAR HGB CONC 32 g/dl (31.0-36.0); MEAN CORPUSCULAR VOLUME 90 fL (80-96); MONOCYTES # (AUTO) 0.7 /CMM (0.1-1.30); MONOCYTES % (AUTO) 4.2 % (2.0-12.0); NEUTROPHILS # (AUTO) 15.8 /CMM (1.8-8.9); NEUTROPHILS % (AUTO) 90.6 % (43.0-81.0); RED BLOOD CELL COUNT(AUTO) 3.46 MIL/uL (4.5-6.0); WHITE BLOOD COUNT (AUTO) 17.5 K/uL (4.3-11.0)
[2020-07-16 04:52] LABS: PLATELET COUNT (AUTO) 40 /CMM (150-450)
[2020-07-16 05:00] LABS: CALCIUM, SERUM 8.1 mg/dL (8.5-10.1); CARBON DIOXIDE 26 mmol/L (21-32); CHLORIDE 109 mmol/L (98-107); CREATININE 0.6 mg/dL (0.6-1.3); GLUCOSE 175 mg/dL (74-106); MAGNESIUM 1.9 mg/dL (1.8-2.4); PHOSPHORUS 2.1 mg/dL (2.5-4.9); SODIUM SERUM 143 mmol/L (136-145); UREA NITROGEN, BLOOD 22 mg/dL (7-18)
[2020-07-16 05:22] LABS: BAND % (MANUAL) 2 % (0.0-5.0); LYMPHOCYTES % (MANUAL) 6 % (16-48); MONOCYTES % (MANUAL) 6 % (0-11.0); NEUTROPHILS % (MANUAL) 86 (42-76)
[2020-07-16] MEDS: POTASSIUM CL. PREMIX PERIPHER. 50 ML IV SCH ×4 (07:23→11:44)
[2020-07-16] MEDS ORDERED: POTASSIUM PHOSPHATE MM 7.5 MMOL in IV NS 0.9% 100 ML IV SCH (07:30)
--- NOTE | 2020-07-16 07:34 | NUR ---
patient remains in no acute distress in bed. patient did not have any significant change in condition during the shift. all needs met, all orders carried out. patient continues to have high residuals. will endorse care to am rn for continuity of care.
--- NOTE | 2020-07-16 07:43 | NUR ---
DR SALDANA AWARE OF PATIENT'S PLATELETS OF 40. ALSO, OK TO GIVE MEDS.
--- NOTE | 2020-07-16 07:45 | NUR ---
RN OPENING NOTE: RECEIVED PATIENT IN BED THIS MORNING. PATIENT IS AAOX1, CONFUSED. SATING WELL ON 4L/MIN VIA NC. AFIB IN THE 90S NOTED ON THE MONITOR. BEVERLY DRAINING URINE. PATIENT NPO STATUS FOR SURGICAL PREP. BETTE PICC LINE, C/D/I, FLUSHING WELL, NO SIGNS OF COMPLICATIONS NOTED. SAFETY MEASURES IMPLEMENTED, BED IN LOWEST POSITION, LOCKED, SIDE RAILS UP, CALL LIGHT WITHIN REACH. WILL CONTINUE TO MONITOR PATIENT FOR CHANGES.
[2020-07-16] MEDS ORDERED: POTASSIUM PHOSPHATE MM 15 MMOL in IV NS 0.9% 250 ML IV SCH (08:00)
[2020-07-16] MEDS: BENZTROPINE MESYLATE (1 MG) 1 MG TABLET GT SCH ×2 (08:17→16:01)
[2020-07-16] MEDS: GABAPENTIN 300 MG CAPSULE GT SCH ×3 (08:17→16:01)
[2020-07-16] MEDS: busPIRone 5 MG TABLET GT SCH ×3 (08:17→16:01)
[2020-07-16] MEDS: VITAMINS A AND D 56.7 GM TUBE TP SCH ×2 (08:18→17:10)
[2020-07-16] MEDS: ASPIRIN 81 MG TAB.CHEW GT SCH (08:18)
[2020-07-16] MEDS: NEOMY SULF/BACITRAC ZN/POLY 15 GM TUBE TP SCH (08:18)
[2020-07-16] MEDS: MEROPENEM 500 MG in IV NS 0.9% 100 ML IV SCH ×2 (08:20→16:01)
[2020-07-16] MEDS ORDERED: ANESTHESIA TRAY IN PYXIS 1 EA TRAY MC ONE (08:56)
[2020-07-16] MEDS ORDERED: IOHEXOL 0 ML IV ONE (09:25)
[2020-07-16] MEDS ORDERED: LIDOCAINE 1% INJ 50 ML MDV IJ ONE (09:25)
--- NOTE | 2020-07-16 10:22 | NUR ---
This SW received a call from still worker helper Allen from ICU asking this SW to assist finding responsible green party regarding this patient. SW spoke to JL Thomas at [facility] . Per JL Thomas, patient does not have a responsible green party. SW informed still worker helperTee Sesay in understanding. JL also attempted to speak to patient's neighbor Juanita Phan to obtain more information regarding relationship with the patient. Juanita did not answer, JL left voicemail with call back number. SW remains available for all needs regarding this patient.
[2020-07-16] MEDS ORDERED: MIDAZOLAM HCL 2 MG/2ML VIAL ONE (10:25)
--- NOTE | 2020-07-16 10:35 | NUR ---
SPOKE WITH SURGEON, STATED PATIENT WILL BE GOING IN EMERGENCY PROCEDURE. PATIENT HAS NO FAMILY AND IS ALERT X1, VERY CONFUSED. ONLY RP IS PATIENT'S FRIEND (SWEETIE) WHO GAVE OVER THE PHONE CONSENT FOR PROCEDURE ON 07/15/2020. CN CONTACTED READERS' ADVISORY SERVICE LIBRARIAN TO NOTIFY OF WHO GAVE CONSENT PRIOR TO SENDING PATIENT OUT TO SURGERY. SURGERY CONTACTED ME TELLING ME THEY'RE GOING TO WRAPPER COUNTER PATIENT. SURGICAL TEAM ARRIVED TO TRANSFER PATIENT TO SURGERY. PATIENT LEFT UNIT, NO ACUTE DISTRESS NOTED AT TIME OF TRANSFER. Addendum: 07/16/20 at 1048 by JOSE WAYNE RN SURGICAL TEAM THAT PICKED UP PATIENT IS AWARE THAT ONE MORE BAG OF K+ NEEDS TO BE HUNG. PATIENT STILL INFUSING K+ PHOS, K+ AND MEREM.
[2020-07-16] MEDS ORDERED: VANCOMYCIN 1 GM in IV D5W 250 ML IV SCH (11:00)
--- NOTE | 2020-07-16 11:58 | NUR ---
PATIENT IS BACK FROM IVC FILTER PLACEMENT. NO ACUTE DISTRESS NOTED AT THIS TIME. PER DR. QUEVEDO, CONTINUE ALL MEDS AND RESUME FEEDING. INCISION SITE AT RIGHT FEMORAL. WILL CONTINUE TO MONITOR FOR BLEEDING.
[2020-07-16] MEDS: DIGOXIN 0.125 MG TABLET GT SCH (13:14)
--- NOTE | 2020-07-16 18:55 | NUR ---
RN CLOSING NOTE: PATIENT REMAINS IN BED. NO SIGNS OF ACUTE DISTRESS NOTED AT THIS TIME. UNCONTROLLED AFIB IN THE 100S NOTED ON THE BEDSIDE MONITOR. SAFETY MEASURES IMPLEMENTED, BED IN LOWEST POSITION, LOCKED, SIDE RAILS UP, CALL LIGHT WITHIN REACH. WILL ENDORSE TO ONCOMING SHIFT RN FOR CONTINUITY OF CARE.
--- NOTE | 2020-07-16 19:00 | NUR ---
Recieved patient in no acute distress in bed. patient is a/o x 1 with confusion on o2 via nasal cannula at 4lpm and tolerating well. patient has Gtube that is clean dry intact and patent with jevity running at 20ml/hr and tolerating well with 0 residuals. Patient is s/p IVC filter placed by Dr. Morelos with site bandage intact clean with no s/s of bleeding noted around surgical site and patient no c/o any pain at this time. Patient has campbell catheter that is clean dry intact and patent with yellow urine draining. patient has left upper arm tlc picc line that is clean dry intact and patent with ns @ tko. bed in low lock position with rials up x 2. call light within reach and all safety measures ensured and carried out. will continue to monitor.
[2020-07-17] VITALS (21 sets, daily range): BP systolic 103–146; BP diastolic 59–104
[2020-07-17] MEDS: MEROPENEM 500 MG in IV NS 0.9% 100 ML IV SCH ×3 (01:41→16:24)
[2020-07-17 04:34] LABS: BASOPHILS % (AUTO) 0.3 % (0.0-2.0); EOSINOPHILS % (AUTO) 0.1 % (0.0-6.0); HEMATOCRIT 29 % (39-51); HEMOGLOBIN 9.4 g/dL (13.5-17.5); LYMPHOCYTES # (AUTO) 1.1 /CMM (0.8-4.8); LYMPHOCYTES % (AUTO) 8.3 % (20.0-44.0); MEAN CORPUSCULAR HGB CONC 33 g/dl (31.0-36.0); MEAN CORPUSCULAR VOLUME 90 fL (80-96); MONOCYTES % (AUTO) 7.7 % (2.0-12.0); NEUTROPHILS # (AUTO) 10.8 /CMM (1.8-8.9); NEUTROPHILS % (AUTO) 83.6 % (43.0-81.0); RED BLOOD CELL COUNT(AUTO) 3.22 MIL/uL (4.5-6.0); WHITE BLOOD COUNT (AUTO) 12.9 K/uL (4.3-11.0)
[2020-07-17 04:39] LABS: PLATELET COUNT (AUTO) 33 /CMM (150-450)
[2020-07-17 04:42] LABS: CALCIUM, SERUM 8.1 mg/dL (8.5-10.1); CREATININE 0.7 mg/dL (0.6-1.3); MAGNESIUM 1.9 mg/dL (1.8-2.4); PHOSPHORUS 2.1 mg/dL (2.5-4.9); POTASSIUM 3.3 mmol/L (3.5-5.1)
[2020-07-17 05:03] LABS: BAND % (MANUAL) 6 % (0.0-5.0); LYMPHOCYTES % (MANUAL) 9 % (16-48); METAMYELOCYTES % 3 % (0-0); MONOCYTES % (MANUAL) 10 % (0-11.0); NEUTROPHILS % (MANUAL) 72 (42-76)
--- NOTE | 2020-07-17 07:32 | NUR ---
patient remains in no acute distress in bed. patinet did not have any significant change in condition during shift. all needs met, all orders carried out. will endorse care to am rn for continuity of care.
[2020-07-17] MEDS ORDERED: POTASSIUM CHLORIDE 20 MEQ POWDER PACKET GT SCH (08:00)
[2020-07-17] MEDS: VITAMINS A AND D 56.7 GM TUBE TP SCH ×2 (08:31→16:24)
[2020-07-17] MEDS: BENZTROPINE MESYLATE (1 MG) 1 MG TABLET GT SCH ×2 (08:31→16:24)
[2020-07-17] MEDS: busPIRone 5 MG TABLET GT SCH ×3 (08:31→16:24)
[2020-07-17] MEDS: GABAPENTIN 300 MG CAPSULE GT SCH ×3 (08:31→16:24)
[2020-07-17] MEDS: NEOMY SULF/BACITRAC ZN/POLY 15 GM TUBE TP SCH (08:32)
[2020-07-17] MEDS: POTASSIUM PHOSPHATE MM 7.5 MMOL in IV NS 0.9% 100 ML IV SCH ×2 (10:33→12:26)
--- NOTE | 2020-07-17 11:20 | NUR ---
RN NOTE 0715: Received patient awake, noted with confusion. On 4 LPM via NC. Afib controlled 90-100's. Kent cath intact, noted with clear jay colored urine drained to BSD. GT intact, noted wtih 5mL residual now, advanced to 40mL/hr, goal of 60. BETTE TLC intact. 1120: No any significant changes noted at this time. Awaiting MS room.
[2020-07-17] MEDS: DIGOXIN 0.125 MG TABLET GT SCH (12:25)
[2020-07-17 17:07] LABS: IRON, SERUM 23 ug/dl (50-175); TOTAL IRON BINDING CAPACITY 130 ug/dl (250-450)
[2020-07-17 17:32] LABS: FERRITIN 2027 ng/mL (8-388)
--- NOTE | 2020-07-17 18:08 | NUR ---
RN NOTE Transferred patient to MS 116-1 via bed. VSS. No significant changes noted. Endorsed care to Medina RN. For VQ scan, Dr. Ariza agreed and he will put in his note, awaiting another order to consent.
--- NOTE | 2020-07-17 19:05 | NUR ---
RECEIVED PT ON BED AWAKE A/O X2 CONFUSED ON O2 4L SPO2 99% NO SOB HAVE GTUBE ON PLACE PLACEMENT CHECKED WITH RUNNING JEVITY @ 60ML/HR RESIDUAL 10ML, HAVE BEVERLY WITH YELLOW URINE DRAINING VIA GRAVITY, HAVE BETTE PICC PATENT AND FLUSHED, BED ON LOWEST POSITION AND LOCKED SIDE RAILS UPX2 CALL LIGHT WITHIN REACH WILL CONT TO MONITOR
--- NOTE | 2020-07-17 19:21 | NUR ---
MS RN CLOSING NOTE PATIENT RESTING COMFORTABLY IN BED. NO DISTRESS NOTED. CONTINUITY OF CARE ENDORSED TO PM SHIFT.
[2020-07-17] MEDS: JEVITY 1.2 CAL 1,000 ML BOTTLE GT PRN (20:23)
[2020-07-18] MEDS: MEROPENEM 500 MG in IV NS 0.9% 100 ML IV SCH ×3 (00:33→16:14)
[2020-07-18 04:00] VITALS: BP 129/94
[2020-07-18 06:02] LABS: OCCULT BLOOD STOOL POSITIVE (NEGATIVE)
[2020-07-18 06:10] LABS: CALCIUM, SERUM 8.4 mg/dL (8.5-10.1); CREATININE 0.7 mg/dL (0.6-1.3); MAGNESIUM 1.9 mg/dL (1.8-2.4); PHOSPHORUS 2.5 mg/dL (2.5-4.9)
[2020-07-18 06:33] LABS: BASOPHILS % (AUTO) 0.2 % (0.0-2.0); EOSINOPHILS % (AUTO) 0.2 % (0.0-6.0); HEMATOCRIT 29 % (39-51); HEMOGLOBIN 9.6 g/dL (13.5-17.5); LYMPHOCYTES # (AUTO) 1.4 /CMM (0.8-4.8); MEAN CORPUSCULAR HGB CONC 33 g/dl (31.0-36.0); MEAN CORPUSCULAR VOLUME 89 fL (80-96); MONOCYTES % (AUTO) 8.4 % (2.0-12.0); NEUTROPHILS % (AUTO) 80.2 % (43.0-81.0); WHITE BLOOD COUNT (AUTO) 12.5 K/uL (4.3-11.0)
--- NOTE | 2020-07-18 06:53 | NUR ---
PT SLEEPING ON BED NO SIGN AND SYMPTOMS OF RESPIRATORY DISTRESS NO SIGN OF PAIN NOTED, NO SIGNIFICANT CHANGES ON CONDITION NOTED ALL NEEDS ATTENDED, SAFETY MEASURE MAINTAINED BED ON LOWEST POSITION AND LOCKED SIDE RAILS UP X2 CALL LIGHT WITHIN REACH WILL ENDORSED TO AM SHIFT NURSE
[2020-07-18 07:10] LABS: PLATELET COUNT (AUTO) 40 /CMM (150-450)
--- NOTE | 2020-07-18 07:30 | NUR ---
RN OPENING NOTES Patient present in bed, awake, A/Ox2, denies pain or discomfort, on NC @ 4L, tolerating well, SPO2 is98%, no SOB noted, Kent cath in place draining yellow urine by gravity, Laceration on forehead noted, laceration on nose noted, Patient is on G-tube feeding, no residual noted, tolerating well running Jevity 1.2 at 60 cc/hr, L UA PICC line noted, flushed and patent, dressing intact. Safety measures in place, call light in reach, bed is locked, in lowest position, will cont to monitor
[2020-07-18 08:00] VITALS: BP 144/95
[2020-07-18 08:07] LABS: IMMUNOGLOBULIN A, SERUM 142 mg/dL (61-437); IMMUNOGLOBULIN G, SERUM 559 mg/dL (603-1613); IMMUNOGLOBULIN M, SERUM 49 mg/dL (15-143)
[2020-07-18] MEDS: BENZTROPINE MESYLATE (1 MG) 1 MG TABLET GT SCH ×2 (08:17→16:17)
[2020-07-18] MEDS: busPIRone 5 MG TABLET GT SCH ×3 (08:17→16:17)
[2020-07-18] MEDS: GABAPENTIN 300 MG CAPSULE GT SCH ×3 (08:17→16:17)
[2020-07-18] MEDS: NEOMY SULF/BACITRAC ZN/POLY 15 GM TUBE TP SCH (08:18)
[2020-07-18 08:23] LABS: BAND % (MANUAL) 1 % (0.0-5.0)
[2020-07-18 08:26] LABS: LYMPHOCYTES % (MANUAL) 31 % (16-48); MONOCYTES % (MANUAL) 4 % (0-11.0); NEUTROPHILS % (MANUAL) 64 (42-76)
[2020-07-18 09:37] LABS: *SPE ALPHA-1-GLOBULIN 0.4 g/dL (0.0-0.4); *SPE ALPHA-2-GLOBULIN 0.7 g/dL (0.4-1.0); *SPE BETA GLOBULIN 0.6 g/dL (0.7-1.3); *SPE GLOBULIN, TOTAL 2.1 g/dL (2.2-3.9); *SPE M-SPIKE Not Observed g/dL (Not Observed); *SPEGAMMA GLOBULIN 0.5 g/dL (0.4-1.8)
[2020-07-18] MEDS: VITAMINS A AND D 56.7 GM TUBE TP SCH ×2 (11:29→16:18)
[2020-07-18] MEDS: JEVITY 1.2 CAL 1,000 ML BOTTLE GT PRN (12:20)
[2020-07-18] MEDS: DIGOXIN 0.125 MG TABLET GT SCH (12:20)
--- NOTE | 2020-07-18 15:58 | NUR ---
contacted Dr Rosario for consent form for nuclear medicine test, her fellow (Denise) will be here tomorrow
[2020-07-18 16:00] VITALS: BP 143/86
--- NOTE | 2020-07-18 18:58 | NUR ---
RN CLOSING NOTES PATIENT IN BED, CLEANED, REPOSITIONED ACCORDING TO PROTOCOL, TOLERATING G-TUBE FEEDING WELL, TOLERATING NC WELL, NO SOB, OR DISTRESS, IV LINE PATENT, SAFETY MEASURES IN PLACE, CALL LIGHT IN REACH, BED IN LOWEST PORTION, WILL ENDORSE TO PM SHIFT RN FOR GEOFFREY
--- NOTE | 2020-07-18 19:38 | NUR ---
RN NOTES RECEIVED PATIENT ALERT ORIENTED X2, NO SIGNS OF ACUTE RESPIRATORY DISTRESS NOTED, SAFETY MEASURES IN PLACE, ASPIRATION PRECAUTION EMPHASIZED, CALL LIGHT WITHIN EASY REACH. ON O2 AT 4LPM VIA NASAL CANNULA TOLERATING WELL. SATING 99%LACERATION ON FOREHEAD NOTED. LACERATION ON NOSE NOTED. DENIES ANY PAIN OR DISCOMFORT. BEVERLY CATHETER INTACT AND PATENT. GTUBE FEEDING IN PLACED, FEEDING TOLERATING WELL, RUNNING JEVITY 1.2 AT 60ML/HR. LEFT UPPER ARM PICC LINE INTACT AND PATENT. ALL NEEDS ANTICIPATED, WILL CONTINUE TO MONITOR ACCORDINGLY.
[2020-07-19 00:33] VITALS: BP 146/98
[2020-07-19] MEDS: MEROPENEM 500 MG in IV NS 0.9% 100 ML IV SCH ×3 (01:12→17:00)
--- NOTE | 2020-07-19 01:50 | NUR ---
RN NOTES PATENT PULLED OUT HIS PICC LINE, CONFUSED AND RESTLESS, RE POSITIONED FOR COMFORT, SAFETY MEASURES EMPHASIZED. INFORMED MD FOR ANY ORDERS.
--- NOTE | 2020-07-19 02:03 | NUR ---
RN NOTES MD ORDERS BILATERAL SOFT WRIST RESTRAINTS. MAINTAINED AND ASSESSED FOR ADEQUATE CIRCULATION, PATIENT IS RESTING COMFORTABLY AT THIS TIME.
[2020-07-19 04:53] VITALS: BP 157/94
[2020-07-19 06:11] LABS: CALCIUM, SERUM 8.2 mg/dL (8.5-10.1); CREATININE 0.7 mg/dL (0.6-1.3); POTASSIUM 3.7 mmol/L (3.5-5.1)
--- NOTE | 2020-07-19 06:28 | NUR ---
RN NOTES ALL NEEDS ATTENDED AND MET, ABLE TO REST AND SLEPT AT INTERVALS. KEPT CLEAN WARM DRY AND COMFORTABLE, REPOSITIONED FOR COMFORT, IV ACCESS INTACT AND PATENT, BILATERAL SOFT WRIST RESTRAINTS INPLACED, MAINTAINED AND ASSESSED FOR ADEQUATE CIRCULATION, ASPIRATION PRECAUTION EMPHASIZED, KEEP CLEAN WARM DRY AND COMFORTABLE, BEVERLY CATHETER INTACT AND PATENT, GTUBE FEEDING TOLERATING WELL, ALL NEEDS ANTICIPATED, WILL ENDORSE TO AM NURSE FOR CONTINUITY OF CARE.
--- NOTE | 2020-07-19 07:05 | NUR ---
RN OPENING NOTES RECEIVED PT AWAKE, A/O X2, CONFUSED. ON 4L O2 VIA NC SATURATING @98%. NO SOB OR ANY SIGNS OF ACUTE RESPIRATORY DISTRESS NOTED. LACERATION ON FOREHEAD NOTED. LACERATION ON NOSE NOTED. DENIES ANY PAIN OR DISCOMFORT. BEVERLY CATHETER INTACT AND PATENT. GTUBE FEEDING OF JEVITY 1.2 @60CC/HR, FEEDING TOLERATING WELL. SAFETY MEASURES OBSERVED. CALL LIGHT WITHIN REACH. BED LOCKED AND AT LOWEST POSITION. WILL CONTINUE TO MONITOR.
[2020-07-19 08:00] VITALS: BP 149/99
[2020-07-19] MEDS: busPIRone 5 MG TABLET GT SCH ×3 (09:10→17:00)
[2020-07-19] MEDS: GABAPENTIN 300 MG CAPSULE GT SCH ×3 (09:10→17:00)
[2020-07-19] MEDS: NEOMY SULF/BACITRAC ZN/POLY 15 GM TUBE TP SCH (09:10)
[2020-07-19] MEDS: BENZTROPINE MESYLATE (1 MG) 1 MG TABLET GT SCH ×2 (09:10→17:00)
[2020-07-19] MEDS: VITAMINS A AND D 56.7 GM TUBE TP SCH ×2 (09:11→17:00)
[2020-07-19] MEDS: JEVITY 1.2 CAL 1,000 ML BOTTLE GT PRN (09:19)
[2020-07-19 10:19] LABS: BASOPHILS % (AUTO) 0.2 % (0.0-2.0); EOSINOPHILS % (AUTO) 0.3 % (0.0-6.0); HEMATOCRIT 28 % (39-51); HEMOGLOBIN 9.1 g/dL (13.5-17.5); LYMPHOCYTES # (AUTO) 1.4 /CMM (0.8-4.8); LYMPHOCYTES % (AUTO) 12.2 % (20.0-44.0); MEAN CORPUSCULAR HGB CONC 33 g/dl (31.0-36.0); MEAN CORPUSCULAR VOLUME 89 fL (80-96); MONOCYTES # (AUTO) 0.8 /CMM (0.1-1.30); MONOCYTES % (AUTO) 7.4 % (2.0-12.0); NEUTROPHILS # (AUTO) 8.9 /CMM (1.8-8.9); NEUTROPHILS % (AUTO) 79.9 % (43.0-81.0); RED BLOOD CELL COUNT(AUTO) 3.13 MIL/uL (4.5-6.0); WHITE BLOOD COUNT (AUTO) 11.1 K/uL (4.3-11.0)
[2020-07-19 10:23] LABS: PLATELET COUNT (AUTO) 49 /CMM (150-450)
[2020-07-19] MEDS: DIGOXIN 0.125 MG TABLET GT SCH (13:28)
[2020-07-19 13:47] LABS: BAND % (MANUAL) 2 % (0.0-5.0); EOSINOPHILS % (MANUAL) 1 % (0-4); LYMPHOCYTES % (MANUAL) 13 % (16-48); MONOCYTES % (MANUAL) 7 % (0-11.0); NEUTROPHILS % (MANUAL) 77 (42-76)
[2020-07-19] MEDS ORDERED: LORAZEPAM INJ 2 MG/ML VIAL IV ONE (14:00)
[2020-07-19 16:00] VITALS: BP 150/90
--- NOTE | 2020-07-19 19:20 | NUR ---
RN OPENING NOTES RECEIVED PATIENT A/O X2; CONFUSE,IN BED RESTING COMFORTABLY.PATIENT IN NO S/SX OF ACUTE DISTRESS AT THIS TIME. NO SOB NOTED. PATIENT'S BREATHING IS EVEN AND UNLABORED. ON 4L O2 VIA NC SATURATING @98%. PATIENT ON GTUBE FEEDING OF JEVITY 1.2 @60CC/HR, FEEDING TOLERATING WELL. WITH IV ACCESS AT R FA # 22 AND R UA PICC LINE ; BOTH PATENT, INTACT AND FLUSHING WELL; NO S/S OF INFECTION OR INFILTRATION.BEVERLY CATH IN PLACE, MINIMAL URINE OUTPUT NOTED. PATIENT HAS BILATERAL SOFT WRIST RESTRAINTS IN PLACE, ASSESSED PER PROTOCOL. SAFETY MEASURES HAVE BEEN PROVIDED AND IMPLEMENTED. PATIENT BED ALARM IS ON. HEAD OF BED ELEVATED. BED IS LOCKED, IN LOWEST POSITION AND SIDE RAILS UP. CALL LIGHT WITHIN REACH OF THE PATIENT. APPLICABLE ISOLATION PRECAUTIONS IN PLACE. WILL CONTINUE TO MONITOR AND REASSESS FOR ANY CHANGES AND WILL CARRY OUT ANY ONGOING AND ACTIVE MD ORDER.
--- NOTE | 2020-07-19 19:41 | NUR ---
RN CLOSING NOTES PT RESTING IN BED, A/O X2, CONFUSED. ON 4L O2 VIA NC SATURATING @98%. NO SOB OR ANY SIGNS OF ACUTE RESPIRATORY DISTRESS NOTED. LACERATION ON FOREHEAD NOTED. LACERATION ON NOSE NOTED. DENIES ANY PAIN OR DISCOMFORT. BEVERLY CATHETER INTACT AND PATENT. GTUBE FEEDING OF JEVITY 1.2 @60CC/HR, FEEDING TOLERATING WELL. SAFETY MEASURES OBSERVED. CALL LIGHT WITHIN REACH. BED LOCKED AND AT LOWEST POSITION. WILL ENDORSE TO NIGHT NURSE FOR GEOFFREY.
[2020-07-19 20:00] VITALS: BP 123/76
--- NOTE | 2020-07-19 22:30 | NUR ---
RN NOTES REPORT GIVEN TO RONAK FREEDMAN FOR GEOFFREY. RELIGION TEACHER MADE AWARE
[2020-07-20] MEDS: MEROPENEM 500 MG in IV NS 0.9% 100 ML IV SCH ×3 (01:09→17:00)
--- NOTE | 2020-07-20 02:22 | NUR ---
RN notes Received patient awake resting comfortably in bed watching TV with no distress noted. Breathing even and unlabored. O2 at 4lpm via nasal cannula tolerating well. No complaint of pain or discomfort. Alert with episodes of confusion and disorientation. Able to verbalize needs. Bilateral wrist restraints in place, release every two hours for repositioning, circulation and hygiene. Needs attended. Kept clean and dry. Will endorse to next shift for continuity of care.
[2020-07-20 04:00] VITALS: BP 137/83
[2020-07-20 06:34] LABS: BASOPHILS % (AUTO) 0.4 % (0.0-2.0); EOSINOPHILS % (AUTO) 0.4 % (0.0-6.0); HEMATOCRIT 28 % (39-51); HEMOGLOBIN 8.9 g/dL (13.5-17.5); LYMPHOCYTES # (AUTO) 1.7 /CMM (0.8-4.8); LYMPHOCYTES % (AUTO) 17.6 % (20.0-44.0); MEAN CORPUSCULAR HGB CONC 32 g/dl (31.0-36.0); MEAN CORPUSCULAR VOLUME 91 fL (80-96); MONOCYTES # (AUTO) 0.4 /CMM (0.1-1.30); MONOCYTES % (AUTO) 4.2 % (2.0-12.0); NEUTROPHILS # (AUTO) 7.4 /CMM (1.8-8.9); NEUTROPHILS % (AUTO) 77.4 % (43.0-81.0); RED BLOOD CELL COUNT(AUTO) 3.05 MIL/uL (4.5-6.0); WHITE BLOOD COUNT (AUTO) 9.5 K/uL (4.3-11.0)
[2020-07-20 06:46] LABS: PLATELET COUNT (AUTO) 50 /CMM (150-450)
[2020-07-20 06:47] LABS: CALCIUM, SERUM 8.4 mg/dL (8.5-10.1); CREATININE 0.7 mg/dL (0.6-1.3); POTASSIUM 3.8 mmol/L (3.5-5.1)
--- NOTE | 2020-07-20 07:20 | NUR ---
RN OPENING NOTES RECEIVED PT AWAKE, A/O X2, CONFUSED. ON 4L O2 VIA NC SATURATING @98%. NO SOB OR ANY SIGNS OF ACUTE RESPIRATORY DISTRESS NOTED. BRUISE ON FOREHEAD NOTED. WOUND ON NOSE NOTED. IV SITES RFA #22 AND JOHN PICC LINE. BOTH INTACT, PATENT AND FLUSHED. NO PAIN OR DISCOMFORT. BEVERLY CATHETER INTACT AND PATENT, DRAINING INTO YELLOWISH COLORED URINE.. GTUBE FEEDING OF JEVITY 1.2 @60CC/HR, FEEDING TOLERATING WELL. SAFETY MEASURES OBSERVED. CALL LIGHT WITHIN REACH. BED LOCKED AND AT LOWEST POSITION. WILL CONTINUE TO MONITOR.
[2020-07-20 08:00] VITALS: BP 144/90
[2020-07-20] MEDS: BENZTROPINE MESYLATE (1 MG) 1 MG TABLET GT SCH ×2 (09:35→17:00)
[2020-07-20] MEDS: busPIRone 5 MG TABLET GT SCH ×3 (09:35→17:00)
[2020-07-20] MEDS: GABAPENTIN 300 MG CAPSULE GT SCH ×3 (09:35→17:00)
[2020-07-20] MEDS: NEOMY SULF/BACITRAC ZN/POLY 15 GM TUBE TP SCH (09:36)
[2020-07-20] MEDS: VITAMINS A AND D 56.7 GM TUBE TP SCH ×2 (09:36→17:00)
[2020-07-20 10:28] LABS: LYMPHOCYTES % (MANUAL) 26 % (16-48); METAMYELOCYTES % 2 % (0-0); MONOCYTES % (MANUAL) 5 % (0-11.0); NEUTROPHILS % (MANUAL) 65 (42-76); REACTIVE LYMPHOCYTES 2 % (0-0)
[2020-07-20] MEDS: JEVITY 1.2 CAL 1,000 ML BOTTLE GT PRN (11:45)
[2020-07-20 13:34] LABS: BILIRUBIN,DIRECT 1.1 mg/dL (0.0-0.2); MAGNESIUM 2.1 mg/dL (1.8-2.4); PHOSPHORUS 3.1 mg/dL (2.5-4.9); TOTAL PROTEIN, SERUM 5.5 g/dL (6.4-8.2)
[2020-07-20] MEDS: DIGOXIN 0.125 MG TABLET GT SCH (13:59)
[2020-07-20 16:00] VITALS: BP 149/86
--- NOTE | 2020-07-20 19:11 | NUR ---
RN CLOSING NOTES PT AWAKE, A/O X2, CONFUSED. ON 4L O2 VIA NC SATURATING @98%. NO SOB OR ANY SIGNS OF ACUTE RESPIRATORY DISTRESS NOTED. BRUISE ON FOREHEAD NOTED. WOUND ON NOSE NOTED. IV SITES RFA #22 AND JOHN PICC LINE. BOTH INTACT, PATENT AND FLUSHED. NO PAIN OR DISCOMFORT. BEVERLY CATHETER INTACT AND PATENT, DRAINING INTO YELLOWISH COLORED URINE.. GTUBE FEEDING OF JEVITY 1.2 @60CC/HR, FEEDING TOLERATING WELL. SAFETY MEASURES OBSERVED. CALL LIGHT WITHIN REACH. BED LOCKED AND AT LOWEST POSITION. WILL ENDORSE TO NIGHT NURSE FOR GEOFFREY.
--- NOTE | 2020-07-20 19:12 | NUR ---
RN NOTES RECEIVED PATIENT IN BED SLEEPING COMFORTABLY.PATIENT IN NO S/SX OF ACUTE DISTRESS AT THIS TIME. NO SOB NOTED. PATIENT'S BREATHING IS EVEN AND UNLABORED. ON 4L O2 VIA NC SATURATING @96%. PATIENT ON GTUBE FEEDING OF JEVITY 1.2 @60CC/HR, FEEDING TOLERATING WELL. WITH IV ACCESS AT R FA # 22 AND R UA PICC LINE ; BOTH PATENT, INTACT AND FLUSHING WELL; NO S/S OF INFECTION OR INFILTRATION. BEVERLY CATH IN PLACE, MINIMAL URINE OUTPUT WAYNE COLORED. PATIENT HAS BILATERAL SOFT WRIST RESTRAINTS IN PLACE, ASSESSED PER PROTOCOL. SAFETY MEASURES HAVE BEEN PROVIDED AND IMPLEMENTED. PATIENT BED ALARM IS ON. HEAD OF BED ELEVATED. BED IS LOCKED, IN LOWEST POSITION AND SIDE RAILS UP. CALL LIGHT WITHIN REACH OF THE PATIENT. APPLICABLE ISOLATION PRECAUTIONS IN PLACE. WILL CONTINUE TO MONITOR AND REASSESS FOR ANY CHANGES AND WILL CARRY OUT ANY ONGOING AND ACTIVE MD ORDER.
[2020-07-20 20:00] VITALS: BP 129/76
--- NOTE | 2020-07-20 23:30 | NUR ---
RN NOTES MD ( DR. YANG) DID HIS ROUNDS FOR ROOM 116, PROVIDED STATUS UPDATE. HE ASKED REGARDING VQ SCAN STATUS. PRIMARY RN ADVISED HIM THAT STILL WAITING FOR THE CONSENTS TO BE COMPLETED BY MDs, INFORMED HIM THAT DR. FIELD HAS ALREADY SIGNED FOR IT AND AWAITING FOR ANOTHER MD TO SIGN. DR. YANG SAID CONSENT FOR THIS PROCEDURE WOULD ONLY NEED 1 SIGNATURE FROM AN MD TO PROCEED. RN ACKNOWLEDGED. WILL ENDORSE TO MORNING SHIFT TO FOLLOW THROUGH FOR THE SCHEDULE. COPYHOLDER MADE AWARE.
--- NOTE | 2020-07-21 | NUR ---
RN NOTES NO NOTED CHANGES TO PATIENT CONDITION/STATUS. DRIVER EDUCATION ROAD INSTRUCTOR MADE AWARE. WILL CONTINUE TO MONITOR AND REASSESS FOR ANY CHANGES THROUGHOUT THE SHIFT.
[2020-07-21] MEDS: MEROPENEM 500 MG in IV NS 0.9% 100 ML IV SCH ×3 (01:08→16:39)
[2020-07-21 04:00] VITALS: BP 138/79
--- NOTE | 2020-07-21 04:05 | NUR ---
RN NOTES NOTED PT'S TEMP 101.4@0400. PRN MEDS GIVEN via G TUBE, PRIOR TO ADMINISTRATION RN CHECK FOR PATENCY VIA FLUSHING. G TUBE NOTED TO BE INTACT, PATENT AND FLUSHING WELL. COOLING MEASURES ALSO PROVIDED. HEAD TURBINE OPERATOR MADE AWARE. WILL RE-EVALUATE AFTER 30 MINUTES- 1 HOUR. WILL CONTINUE TO MONITOR
[2020-07-21] MEDS: ACETAMINOPHEN 325 MG TABLET PO PRN (04:21)
[2020-07-21] MEDS: JEVITY 1.2 CAL 1,000 ML BOTTLE GT PRN (04:53)
--- NOTE | 2020-07-21 05:05 | NUR ---
RN NOTES RE-CHECKED PT'S TEMP AFTER AN HOUR ADMINISTRATING PRN MEDS AND COOLING MEASURES. CURRENT TEMP OF PATIENT IS 99.5. CUSTOMER EXPERIENCE SPECIALIST MADE AWARE. WILL CONTINUE PROVING COOLING MEASURES AND CONTINUE TO MONITOR AND ASSESS THROUGHOUT THE SHIFT.
--- NOTE | 2020-07-21 06:50 | NUR ---
RN CLOSING NOTE: PATIENT REMAINS IN ROOM. NO SIGNS OF RESPIRATORY DISTRESS. SAFETY MEASURES IMPLEMENTED, BED IN LOWEST POSITION, LOCKED, SIDE RAILS UP, CALL LIGHT WITHIN REACH. ALL NEEDS AND ORDERS ADDRESSED DURING THE SHIFT. ALL DUE MEDS GIVEN ORDERED & SCHEDULED ; PATIENT TOLERATED WELL.PATIENT KEPT CLEAN AND COMFORTABLE WITHIN THE SHIFT. ENDORSED TO INCOMING SHIFT RN FOR CONTINUITY OF CARE.
[2020-07-21 07:20] LABS: BASOPHILS % (AUTO) 0.2 % (0.0-2.0); EOSINOPHILS % (AUTO) 0.1 % (0.0-6.0); HEMATOCRIT 24 % (39-51); HEMOGLOBIN 7.8 g/dL (13.5-17.5); LYMPHOCYTES # (AUTO) 1.1 /CMM (0.8-4.8); LYMPHOCYTES % (AUTO) 6.3 % (20.0-44.0); MEAN CORPUSCULAR HGB CONC 32 g/dl (31.0-36.0); MEAN CORPUSCULAR VOLUME 89 fL (80-96); MONOCYTES # (AUTO) 0.6 /CMM (0.1-1.30); MONOCYTES % (AUTO) 3.3 % (2.0-12.0); NEUTROPHILS # (AUTO) 15.1 /CMM (1.8-8.9); NEUTROPHILS % (AUTO) 90.1 % (43.0-81.0); RED BLOOD CELL COUNT(AUTO) 2.72 MIL/uL (4.5-6.0); WHITE BLOOD COUNT (AUTO) 16.7 K/uL (4.3-11.0)
[2020-07-21 07:28] LABS: PLATELET COUNT (AUTO) 69 /CMM (150-450)
--- NOTE | 2020-07-21 07:30 | NUR ---
RN Opening Note Received patient in bed, AO x 1-2 confused, able to responds all stimuli. Respiratory even and unlabored with oxygen at 2LPM, no distress or SOB observed. Skin is warm to touch keep clean/dry intact IV site on right forearm g22 and right upper arm piccline, pt has g tube feeding: Jevity 1.2 at 60 ml/hr, campbell cath urine draining by gravity. Kept locked bed with elevated HOB for ensure airway and aspiration precaution and lowest position for safety. Call light within reach, will continue to monitor.
[2020-07-21 07:46] LABS: ALBUMIN 1.9 g/dL (3.4-5.0); BILIRUBIN,DIRECT 0.7 mg/dL (0.0-0.2); BILIRUBIN,TOTAL 1.2 mg/dL (0.2-1.0); CREATININE 0.8 mg/dL (0.6-1.3); MAGNESIUM 1.9 mg/dL (1.8-2.4); PHOSPHORUS 2.4 mg/dL (2.5-4.9); POTASSIUM 3.4 mmol/L (3.5-5.1); TOTAL PROTEIN, SERUM 5.4 g/dL (6.4-8.2)
[2020-07-21] MEDS: BENZTROPINE MESYLATE (1 MG) 1 MG TABLET GT SCH ×2 (09:06→16:36)
[2020-07-21] MEDS: GABAPENTIN 300 MG CAPSULE GT SCH ×3 (09:06→16:36)
[2020-07-21] MEDS: busPIRone 5 MG TABLET GT SCH ×3 (09:06→16:36)
[2020-07-21] MEDS: VITAMINS A AND D 56.7 GM TUBE TP SCH ×2 (09:09→16:36)
[2020-07-21] MEDS: NEOMY SULF/BACITRAC ZN/POLY 15 GM TUBE TP SCH (09:09)
[2020-07-21 09:24] LABS: BAND % (MANUAL) 4 % (0.0-5.0); LYMPHOCYTES % (MANUAL) 8 % (16-48); METAMYELOCYTES % 1 % (0-0); MONOCYTES % (MANUAL) 2 % (0-11.0); NEUTROPHILS % (MANUAL) 85 (42-76)
[2020-07-21] MEDS: POTASSIUM CHLORIDE 20 MEQ TAB.PRT.SR PO SCH ×2 (10:02→11:05)
[2020-07-21] MEDS ORDERED: NEUTRA PHOS 1 POWD.PACKET GT ONE (11:30)
[2020-07-21] MEDS: DIGOXIN 0.125 MG TABLET GT SCH (14:57)
--- NOTE | 2020-07-21 18:55 | NUR ---
RN Closing note Patient in the bed resting, does no appears pain or discomfort. Skin is warm to touch, keep intact piccline site, given oral care and suction. Respiratory even and unlabored with oxygen at 2LPM O2sat 96%. Kept locked bed with elevated HOB for ensure airway and aspiration precaution and lowest position for safety. Call light within reach, will endorse lead java [email or web address] developer.
--- NOTE | 2020-07-21 19:15 | NUR ---
RN OPENING NOTE RECEIVED PATIENT IN BED RESTING ALERT ORIENTED X2 VERBALLY RESPONSIVE NO SOB NOT ACUTE DISTRESS NOTED,HE IS ON 2L OXYGEN VIA NASAL CANNULA O2:96% ON MED SURGE MONITORING,IV SITE IS ON RIGHT FOREARM AND RIGHT UPPER ARM PICC LINE, INTACT PATENT,ON G-TUBE FEEDING JEVITY 1.2 60CC/HR CHECKED PLACEMENT,NO RESIDUAL NOTED. BEVERLY CATHETER IN PLACE,URINE DRAINING YELLOW AND CLEAR,IMPLEMENT SAFETY MEASURE,SIDE RAIL X3UP BED IS IN LOW POSITION AND LOCKED,BED ALARM IS ON,CALL LIGHT WITHIN REACH,CONTINUE TO MONITOR.
--- NOTE | 2020-07-21 23:20 | NUR ---
2320 PATIENT NOTED WITH PRODUCTIVE COUGHING BUT UNABLE TO EXPECTORATE MUCUS. DEEP SUCTIONING DONE OBTAINING COPIOUS AMOUNT OF THICK SECRETIONS. PATIENT TOLERATED PROCEDURE WELL. O2 SATURATION NOTED 98% ON 3 L. HOB ELEVATED FOR MAXIMUM OXYGENATION AND FOR ASPIRATION PRECAUTION. DESIREE MISHRA WAS NOTIFIED AND HE SAID HE WILL PUT ORDERS.
[2020-07-21] MEDS ORDERED: IPRATROPIUM NEB FS 0.5 MG/2.5 ML AMPUL.NEB NEB ONE (23:30)
[2020-07-22] MEDS: MEROPENEM 500 MG in IV NS 0.9% 100 ML IV SCH ×3 (00:42→17:00)
[2020-07-22 04:00] VITALS: BP 123/77
[2020-07-22 06:01] LABS: BASOPHILS % (AUTO) 0.2 % (0.0-2.0); EOSINOPHILS % (AUTO) 0.4 % (0.0-6.0); HEMATOCRIT 24 % (39-51); LYMPHOCYTES # (AUTO) 1.3 /CMM (0.8-4.8); LYMPHOCYTES % (AUTO) 10.6 % (20.0-44.0); MEAN CORPUSCULAR HGB CONC 33 g/dl (31.0-36.0); MEAN CORPUSCULAR VOLUME 90 fL (80-96); MONOCYTES # (AUTO) 0.5 /CMM (0.1-1.30); MONOCYTES % (AUTO) 4.1 % (2.0-12.0); NEUTROPHILS # (AUTO) 10.1 /CMM (1.8-8.9); NEUTROPHILS % (AUTO) 84.7 % (43.0-81.0); PLATELET COUNT (AUTO) 65 /CMM (150-450); RED BLOOD CELL COUNT(AUTO) 2.72 MIL/uL (4.5-6.0); WHITE BLOOD COUNT (AUTO) 11.9 K/uL (4.3-11.0)
[2020-07-22 06:16] LABS: BILIRUBIN,DIRECT 0.7 mg/dL (0.0-0.2); BILIRUBIN,TOTAL 1.1 mg/dL (0.2-1.0); CALCIUM, SERUM 8.1 mg/dL (8.5-10.1); CREATININE 0.7 mg/dL (0.6-1.3); MAGNESIUM 1.9 mg/dL (1.8-2.4); PHOSPHORUS 2.9 mg/dL (2.5-4.9); TOTAL PROTEIN, SERUM 5.6 g/dL (6.4-8.2)
--- NOTE | 2020-07-22 06:56 | NUR ---
RN CLOSING NOTE PATIENT REMAINS ALERT ORIENTED X1 NO SOB NOT ACUTE DISTRESS NOTED, ON 3L OXYGEN VIA NASAL CANNULA O2:98% ON G-TUBE FEEDING JEVITY 1.2 60CC/HR,HEAD OF BED ELEVATED ALL THE TIME,IV SITE IS ON RIGHT UPPER ARM PICC LINE AND RIGHT FOREARM INTACT PATENT KEPT CLEAN AND DRY ALL THE TIME,ALL DUE MEDS GIVEN MD ORDERED,IMPLEMENTED SAFETY MEASURE,ALL NEEDS MET,ENDORSED NEXT COMING SHIFT FOR CONTINUATION OF CARE.
--- NOTE | 2020-07-22 07:20 | NUR ---
RN OPENING NOTES RECEIVED PT AWAKE, A/O X1-2, CONFUSED. ON 4L O2 VIA NC SATURATING @98%. NO SOB OR ANY SIGNS OF ACUTE RESPIRATORY DISTRESS NOTED. BRUISE ON FOREHEAD NOTED. WOUND ON NOSE NOTED. IV SITES RFA #22 AND JOHN PICC LINE. BOTH INTACT, PATENT AND FLUSHED. NO PAIN OR DISCOMFORT. BEVERLY CATHETER INTACT AND PATENT, DRAINING INTO YELLOWISH COLORED URINE.. GTUBE FEEDING OF JEVITY 1.2 @60CC/HR, FEEDING TOLERATING WELL. SAFETY MEASURES OBSERVED. CALL LIGHT WITHIN REACH. BED LOCKED AND AT LOWEST POSITION. WILL CONTINUE TO MONITOR.
[2020-07-22 08:00] VITALS: BP 143/97
[2020-07-22] MEDS: PANTOPRAZOLE 40 MG VIAL IV SCH (09:33)
[2020-07-22] MEDS: busPIRone 5 MG TABLET GT SCH ×3 (09:34→17:00)
[2020-07-22] MEDS: BENZTROPINE MESYLATE (1 MG) 1 MG TABLET GT SCH ×2 (09:34→17:00)
[2020-07-22] MEDS: GABAPENTIN 300 MG CAPSULE GT SCH ×3 (09:34→17:00)
[2020-07-22] MEDS: NEOMY SULF/BACITRAC ZN/POLY 15 GM TUBE TP SCH (09:35)
[2020-07-22] MEDS: VITAMINS A AND D 56.7 GM TUBE TP SCH ×2 (09:35→17:00)
[2020-07-22 10:37] LABS: BAND % (MANUAL) 2 % (0.0-5.0); EOSINOPHILS % (MANUAL) 1 % (0-4); LYMPHOCYTES % (MANUAL) 14 % (16-48); METAMYELOCYTES % 1 % (0-0); MONOCYTES % (MANUAL) 6 % (0-11.0); MYELOCYTES % 1 % (0-0); NEUTROPHILS % (MANUAL) 75 (42-76)
--- NOTE | 2020-07-22 12:30 | NUR ---
RN NOTES PT BROUGHT TO NUCLEAR MEDICINE FOR HIDA SCAN. PT ON STABLE CONDITION. VS WNL.
[2020-07-22] MEDS: DIGOXIN 0.125 MG TABLET GT SCH (13:39)
--- NOTE | 2020-07-22 13:40 | NUR ---
RN NOTES PT BACK FROM HIDA SCAN. PT ON STABLE CONDITION
[2020-07-22 16:00] VITALS: BP 140/89
--- NOTE | 2020-07-22 17:00 | NUR ---
RN NOTES PT BROUGHT BACK TO HIDA SCAN. VS STABLE
--- NOTE | 2020-07-22 17:30 | NUR ---
RN NOTES PT IS BACK FROM HIDA SCAN. PT STABLE. VS WNL. PT SCRATCHED HIS NOSE. WOUND CARE DONE
[2020-07-22] MEDS: JEVITY 1.2 CAL 1,000 ML BOTTLE GT PRN (18:08)
--- NOTE | 2020-07-22 19:02 | NUR ---
RN CLOSING NOTES PT AWAKE, A/O X1-2, CONFUSED. ON 4L O2 VIA NC SATURATING @98%. NO SOB OR ANY SIGNS OF ACUTE RESPIRATORY DISTRESS NOTED. BRUISE ON FOREHEAD NOTED. WOUND ON NOSE NOTED. IV SITES RFA #22 AND JOHN PICC LINE. BOTH INTACT, PATENT AND FLUSHED. NO PAIN OR DISCOMFORT. BEVERLY CATHETER INTACT AND PATENT, DRAINING INTO YELLOWISH COLORED URINE.. GTUBE FEEDING OF JEVITY 1.2 @60CC/HR, POSITIVE PLACEMENT CHECKED THRU AUSCULTATION. FEEDING TOLERATING WELL. SAFETY MEASURES OBSERVED. CALL LIGHT WITHIN REACH. BED LOCKED AND AT LOWEST POSITION. WILL ENDORSE TO NIGHT NURSE FOR GEOFFREY.
--- NOTE | 2020-07-22 19:10 | NUR ---
RN OPENING NOTE RECEIVED PATIENT IN BED RESTING ALERT ORIENTED X1 VERBALLY RESPONSIVE NO SOB NOT ACUTE DISTRESS NOTED,ON OXYGEN 4L VIA NASAL CANNULA,O2:96% IV SITE IS ON RIGHT UPPER ARM PICC LINE AND RIGHT FOREARM INTACT PATENT,ON G-TUBE FEEDING JEVITY 1.2 60 CC/HR,CHECKED PLACEMENT,IN PLACE NO RESIDUAL NOTED,ON BEVERLY CATHETER URINE DRAINING YELLOW AND CLEAR IMPLEMENT SAFETY MEASURE,BED IS ON LOW POSITON AND LOCKED HEAD OF BED ELEVATED ALL THE TIME FOR PREVENT ASPIRATION,CONTINUE TO MONITOR.
--- NOTE | 2020-07-22 19:35 | NUR ---
RN NOTE RECEIVED A CALL FROM LAB PATIENT BLOOD CULTURE RESULT IS POSITIVE MD AWARE OF THAT CONTINUE TO MONITOR.
[2020-07-22] MEDS ORDERED: VANCOMYCIN 1 GM in IV D5W 250 ML IV SCH (21:00)
[2020-07-23] VITALS: BP 136/91
[2020-07-23] MEDS: MEROPENEM 500 MG in IV NS 0.9% 100 ML IV SCH ×3 (00:19→16:25)
[2020-07-23 06:19] LABS: CALCIUM, SERUM 8.1 mg/dL (8.5-10.1); CREATININE 0.7 mg/dL (0.6-1.3); MAGNESIUM 2.2 mg/dL (1.8-2.4); PHOSPHORUS 2.5 mg/dL (2.5-4.9); POTASSIUM 4.6 mmol/L (3.5-5.1)
[2020-07-23 06:39] LABS: BASOPHILS # (AUTO) 0.1 /CMM (0.0-0.2); BASOPHILS % (AUTO) 0.7 % (0.0-2.0); EOSINOPHILS % (AUTO) 0.3 % (0.0-6.0); HEMATOCRIT 28 % (39-51); HEMOGLOBIN 7.9 g/dL (13.5-17.5); LYMPHOCYTES # (AUTO) 1.1 /CMM (0.8-4.8); LYMPHOCYTES % (AUTO) 10.8 % (20.0-44.0); MEAN CORPUSCULAR HGB CONC 28 g/dl (31.0-36.0); MEAN CORPUSCULAR VOLUME 98 fL (80-96); MONOCYTES # (AUTO) 0.5 /CMM (0.1-1.30); NEUTROPHILS # (AUTO) 8.4 /CMM (1.8-8.9); NEUTROPHILS % (AUTO) 83.2 % (43.0-81.0); PLATELET COUNT (AUTO) 74 /CMM (150-450); WHITE BLOOD COUNT (AUTO) 10.1 K/uL (4.3-11.0)
--- NOTE | 2020-07-23 07:20 | NUR ---
RN CLOSING NOTE PATIENT REMAINS ON ALERT ORIENTED X2 VERBALLY RESPONSIVE NO SOB NOT ACUTE DISTRESS NOTED,ON 2L OXYGEN VIA NASAL CANNULA, NO SOB NOT ACUTE DISTRESS NOTED,PATIENT IS GRAM POSITIVE COCCI BACTERIUM,IV SITE IS ON RIGHT UPPER ALARM PICC LINE AND RIGHT FOREARM INTACT PATENT ALL DUE MEDS GIVEN MD ORDERED,KEPT CLEAN AND DRY ALL THE TIME,KEPT COMFORTABLE, ALL NEEDS MET ENDORSE NEXT COMING SHIFT FOR CONTINUATION OF CARE.
[2020-07-23 07:35] LABS: LYMPHOCYTES % (MANUAL) 7 % (16-48); MONOCYTES % (MANUAL) 4 % (0-11.0); NEUTROPHILS % (MANUAL) 89 (42-76)
--- NOTE | 2020-07-23 07:45 | NUR ---
MS/RN - Assessment Patient in bed awake, A/O x2, verbally responsive, denies pain, not in any form of distress, on oxygen at 2lpm via NC. JOHN PICC is patent and intact with no signs of infiltration. Bilateral soft wrist restraints in place to prevent pulling out gastric tube, PICC line, and oxygen tubing. Wound care done as ordered. Labs reviewed, no critical values noted. Pending VQ scan to r/o PE, consent signed. Fall and aspiration precautions maintained. Will continue with current medical management.
[2020-07-23 08:00] VITALS: BP 159/77
[2020-07-23] MEDS: GABAPENTIN 300 MG CAPSULE GT SCH ×3 (08:37→16:24)
[2020-07-23] MEDS: BENZTROPINE MESYLATE (1 MG) 1 MG TABLET GT SCH ×2 (08:37→16:24)
[2020-07-23] MEDS: PANTOPRAZOLE 40 MG VIAL IV SCH (08:37)
[2020-07-23] MEDS: VANCOMYCIN 0.75 GM in IV D5W 250 ML IV SCH ×2 (08:37→20:29)
[2020-07-23] MEDS: busPIRone 5 MG TABLET GT SCH ×3 (08:37→16:24)
[2020-07-23] MEDS: JEVITY 1.2 CAL 1,000 ML BOTTLE GT PRN (08:39)
[2020-07-23] MEDS: VITAMINS A AND D 56.7 GM TUBE TP SCH ×2 (08:44→16:27)
[2020-07-23] MEDS: NEOMY SULF/BACITRAC ZN/POLY 15 GM TUBE TP SCH (08:44)
--- NOTE | 2020-07-23 10:00 | NUR ---
MS/RN - Notes Patient is alert to self, needs frequent reorientation, bilateral soft wrist restraints in place to prevent pulling out lines, no c/o pain, toileting needs addressed. Will continue to monitor closely.
--- NOTE | 2020-07-23 11:45 | NUR ---
MS/RN - Hospitalist Seen and examined Dr. Tomlinson with order to give Ativan 0.5 mg IVP Q6H PRN for agitation and d/c bilateral soft wrist restraints.
[2020-07-23] MEDS: LORAZEPAM INJ 2 MG/ML VIAL IV PRN (11:54)
[2020-07-23 12:00] VITALS: BP 128/76
--- NOTE | 2020-07-23 12:00 | NUR ---
MS/RN - Notes Ativan 0.5 mg IVP given and bilateral soft wrist restraints discontinued.
[2020-07-23] MEDS: DIGOXIN 0.125 MG TABLET GT SCH (12:11)
--- NOTE | 2020-07-23 12:30 | NUR ---
MS/RN - Notes Patient sleeping comfortably, bilateral soft wrists restraints removed, will continue to monitor closely.
[2020-07-23 12:38] LABS: CALCIUM, SERUM 7.6 mg/dL (8.5-10.1); CREATININE 0.7 mg/dL (0.6-1.3); POTASSIUM 3.6 mmol/L (3.5-5.1)
[2020-07-23 12:44] LABS: ALBUMIN 1.8 g/dL (3.4-5.0); BILIRUBIN,TOTAL 0.7 mg/dL (0.2-1.0)
--- NOTE | 2020-07-23 15:30 | NUR ---
MS/RN - Notes Patient is calm and cooperative, off bilateral soft wrist restraints, no c/o pain, not in any form of distress. Will continue to monitor closely for safety and behavior.
[2020-07-23 16:00] VITALS: BP 112/70
--- NOTE | 2020-07-23 18:34 | NUR ---
MS/RN - End of shift summary No significant change in condition seen, remain afebrile, tolerating tube feeding well, off restraints, for Cholecystostomy and CT percutaneous drain abscess with cath tomorrow at 09:00, transfuse platelets prior to procedure. All needs attended. Will continue with current plan of care.
--- NOTE | 2020-07-23 19:45 | NUR ---
RN CLOSING NOTE RECEIVED PATIENT IN BED RESTING SLEEPING CLOSE EYES ALERT ORIENTED X1 ON 2L/MN OXYGEN VIA NASAL CANNULA,O2:97% NO SOB NOT ACUTE DISTRESS NOTED,IV SITE IS ON RIGHT UPPER ARM PICC LINE,AND RIGHT FOREARM INTACT PATENT,ON G-TUBE FEEDING 1.2 JEVITY 60CC/HR AND FLUID FLUSHING 250CC EVERY 4 HOURS,CHECKED PLACEMENT,IN PLACE NO RESIDUAL NOTED,HEAD OF BED ELEVATED ALL THE TIME,BEVERLY CATHETER IN PLACE URINE DRAINING PER GRAVITY YELLOW/CLEAR,BED LOCKED AND IN LOW POSITION, IMPLEMENT SAFETY MEASURE,SIDE RAIL X3 UP CONTINUE TO MONITOR.
[2020-07-24] VITALS (7 sets, daily range): BP systolic 106–132; BP diastolic 59–80
--- NOTE | 2020-07-24 | NUR ---
RN NOTE PATIENT IS NPO AFTER MIDNIGHT FOR CHOLECYSTECTOMY/CT DRAIN WITH CATH,CONTINUE TO MONITOR.
[2020-07-24] MEDS: MEROPENEM 500 MG in IV NS 0.9% 100 ML IV SCH ×3 (00:19→17:25)
--- NOTE | 2020-07-24 02:05 | NUR ---
RN CLOSING NOTE PATIENT REMAINS ALERT ORIENTED X1 VERBALLY RESPONSIVE ON 2L/MIN OXYGEN VIA NASAL CANNULA,02:98% NO SOB NOT ACUTE DISTRESS NOTED,REMAINS NPO AFTER MID NIGHT FOR TOMORROW PROCEDURE, CHOLECYSTECTOMY/CT DRAIN WITH CATH,ENDORSE TO ARCHANA SIMONS FOR CONTINUATION OF CARE
[2020-07-24 04:32] LABS: BASOPHILS % (AUTO) 0.3 % (0.0-2.0); EOSINOPHILS % (AUTO) 0.4 % (0.0-6.0); HEMATOCRIT 22 % (39-51); HEMOGLOBIN 7.2 g/dL (13.5-17.5); LYMPHOCYTES # (AUTO) 1.4 /CMM (0.8-4.8); LYMPHOCYTES % (AUTO) 15.6 % (20.0-44.0); MEAN CORPUSCULAR HGB CONC 33 g/dl (31.0-36.0); MEAN CORPUSCULAR VOLUME 89 fL (80-96); MONOCYTES # (AUTO) 0.5 /CMM (0.1-1.30); MONOCYTES % (AUTO) 5.2 % (2.0-12.0); NEUTROPHILS # (AUTO) 6.9 /CMM (1.8-8.9); NEUTROPHILS % (AUTO) 78.5 % (43.0-81.0); PLATELET COUNT (AUTO) 76 /CMM (150-450); RED BLOOD CELL COUNT(AUTO) 2.45 MIL/uL (4.5-6.0); WHITE BLOOD COUNT (AUTO) 8.8 K/uL (4.3-11.0)
[2020-07-24 04:40] LABS: CALCIUM, SERUM 7.7 mg/dL (8.5-10.1); CREATININE 0.6 mg/dL (0.6-1.3); POTASSIUM 3.8 mmol/L (3.5-5.1)
[2020-07-24 04:55] LABS: NEUTROPHILS % (MANUAL) 80 (42-76)
[2020-07-24 04:56] LABS: LYMPHOCYTES % (MANUAL) 17 % (16-48); MONOCYTES % (MANUAL) 3 % (0-11.0)
--- NOTE | 2020-07-24 05:38 | NUR ---
RN NOTE PLATELET TRANSFUSION STARTED.
--- NOTE | 2020-07-24 06:10 | NUR ---
RN NOTE PLATELET TRANSFUSION COMPLETED. PATIENT TOLERATED WELL. NO S/S OF ADVERSE REACTION
--- NOTE | 2020-07-24 06:43 | NUR ---
RN NOTE 1 HR POST PLATELET TRANSFUSION V/S T 97.7 BP 116/80 P 83, RR 16
--- NOTE | 2020-07-24 07:30 | NUR ---
RN OPENING NOTES Patient in bed, awake, A/Ox1, on NC @ 2L of O2, SPO2 is 95%, tolerating well, denies pain or discomfort, no s/sx of resp distress or SOB noted. Med-Surg status, Kent cath in place, draining clear yellow urine by gravity, G-tube in place, holding feeding to following procedure, abdominal binder in place, tolerating well, Right upper PICC line in place, patent and intact, Right forearm IV line feels painful to patient, removed and applied dressing, Safety measures implemented, call light in reach, bed is locked, in lowest position, HOB elevated, will cont to monitor
[2020-07-24] MEDS: BENZTROPINE MESYLATE (1 MG) 1 MG TABLET GT SCH ×2 (08:37→17:08)
[2020-07-24] MEDS: GABAPENTIN 300 MG CAPSULE GT SCH ×3 (08:37→17:08)
[2020-07-24] MEDS: PANTOPRAZOLE 40 MG VIAL IV SCH (08:37)
[2020-07-24] MEDS: busPIRone 5 MG TABLET GT SCH ×3 (08:37→17:08)
[2020-07-24] MEDS: VANCOMYCIN 0.75 GM in IV D5W 250 ML IV SCH (08:40)
[2020-07-24 08:42] LABS: HEMATOCRIT 22 % (39-51); HEMOGLOBIN 7.2 g/dL (13.5-17.5); MEAN CORPUSCULAR HGB CONC 33 g/dl (31.0-36.0); MEAN CORPUSCULAR VOLUME 90 fL (80-96); PLATELET COUNT (AUTO) 103 /CMM (150-450); RED BLOOD CELL COUNT(AUTO) 2.49 MIL/uL (4.5-6.0); WHITE BLOOD COUNT (AUTO) 11.3 K/uL (4.3-11.0)
[2020-07-24] MEDS: NEOMY SULF/BACITRAC ZN/POLY 15 GM TUBE TP SCH (08:56)
[2020-07-24] MEDS: VITAMINS A AND D 56.7 GM TUBE TP SCH ×2 (08:56→17:09)
[2020-07-24] MEDS ORDERED: DIATR MEGLU/DIATRIZOATE SODIUM 120 ML BOTTLE (GASTROGRAPHIN) ONE (09:05)
[2020-07-24] MEDS: PROSOURCE / PROSTAT (PYXIS) 30 ML UDC GT SCH ×2 (09:30→17:00)
[2020-07-24 11:26] LABS: ALBUMIN 1.9 g/dL (3.4-5.0); BILIRUBIN,DIRECT 0.5 mg/dL (0.0-0.2); BILIRUBIN,TOTAL 0.8 mg/dL (0.2-1.0); TOTAL PROTEIN, SERUM 5.4 g/dL (6.4-8.2)
--- NOTE | 2020-07-24 12:15 | NUR ---
PER RADIOLOGY HOLD OFF ON CT DRAIN,SINCE LFT IMPROVING,JACKLYN TIRE CURER SURGERY OK TO START GTUBE FEEDING AT SLOW RATE,PRIMARY RN AWARE.
[2020-07-24] MEDS: JEVITY 1.2 CAL 1,000 ML BOTTLE GT PRN (12:53)
[2020-07-24] MEDS: DIGOXIN 0.125 MG TABLET GT SCH (12:54)
--- NOTE | 2020-07-24 14:30 | NUR ---
Agitated, removing G-tube , will administer PRN med
[2020-07-24] MEDS: LORAZEPAM INJ 2 MG/ML VIAL IV PRN (14:34)
--- NOTE | 2020-07-24 18:48 | NUR ---
RN CLOSING NOTES REMAINS IN BED, TOLERATING SETTINGS WELL, NO SOB OR DISTRESS NOTED, CLEANED AND REPOSITION THOUGHT THE SHIFT AND ACCORDING TO PROTOCOL , G-TUBE PATENT , INTACT, FLUSHED WELL, NO RESIDUAL NOTED,RESTARTED JEVITY 1.2 FEEDING @ 15CC/HR, TOLERATING WELL, MEDICATIONS GIVEN, TOLERATED WELL, SAFETY PRECAUTION IN PLACE, CALL LIGHT IN REACH, BED IS LOCKED IN LOWEST POSITION, WILL ENDORSE TO PM SHIFT RN FOR GEOFFREY
--- NOTE | 2020-07-24 19:30 | NUR ---
RN NOTE RECEIVED PATIENT ASLEEP IN BED, IN NO S/SX OF ACUTE DISTRESS AT THIS TIME. PATIENT'S BREATHING IS EVEN AND UNLABORED, ON 2L O2 VIA NC SATURATING @100%. PATIENT ON GTUBE FEEDING OF JEVITY 1.2 CURRENTLY AT 15 CC/HR, TOLERATING WELL, PLACEMENT WAS CHECKED, MINIMAL RESIDUAL NOTED. WITH IV ACCESS AT R PICC LINE, PATENT AND FLUSHING WELL, NO S/S OF INFECTION OR INFILTRATION. BEVERLY CATHETER CONNECTED TO URINE BAG IN PLACE, DRAINING TO A CLEAR YELLOW URINE. SAFETY MEASURES IMPLEMENTED PER PROTOCOL, BED ALARM IS ON. HEAD OF BED ELEVATED. BED IS LOCKED, IN LOWEST POSITION AND SIDE RAILS UP. CALL LIGHT WITHIN REACH OF THE PATIENT. ASPIRATION PRECAUTIONS OBSERVED. WILL CONTINUE TO MONITOR AND REASSESS FOR ANY CHANGES.
[2020-07-25] VITALS (10 sets, daily range): BP systolic 109–136; BP diastolic 67–89
[2020-07-25] MEDS: MEROPENEM 500 MG in IV NS 0.9% 100 ML IV SCH ×3 (00:21→17:20)
[2020-07-25 06:02] LABS: BASOPHILS % (AUTO) 0.4 % (0.0-2.0); EOSINOPHILS % (AUTO) 0.5 % (0.0-6.0); HEMATOCRIT 21 % (39-51); LYMPHOCYTES # (AUTO) 1.2 /CMM (0.8-4.8); LYMPHOCYTES % (AUTO) 19.8 % (20.0-44.0); MEAN CORPUSCULAR HGB CONC 33 g/dl (31.0-36.0); MEAN CORPUSCULAR VOLUME 89 fL (80-96); MONOCYTES # (AUTO) 0.4 /CMM (0.1-1.30); MONOCYTES % (AUTO) 6.5 % (2.0-12.0); NEUTROPHILS # (AUTO) 4.5 /CMM (1.8-8.9); NEUTROPHILS % (AUTO) 72.8 % (43.0-81.0); PLATELET COUNT (AUTO) 90 /CMM (150-450); RED BLOOD CELL COUNT(AUTO) 2.41 MIL/uL (4.5-6.0); WHITE BLOOD COUNT (AUTO) 6.2 K/uL (4.3-11.0)
[2020-07-25 06:10] LABS: CALCIUM, SERUM 7.7 mg/dL (8.5-10.1); CREATININE 0.6 mg/dL (0.6-1.3); POTASSIUM 3.8 mmol/L (3.5-5.1)
--- NOTE | 2020-07-25 06:41 | NUR ---
RONAK NOTE CRITICAL LAB RESULT RECEIVED VIA PHONE CALL FROM HERON Gonzalez OF LAB, HGB LEVEL IS 7.0. RAW SAMPLER MADE AWARE. Addendum: 07/25/20 at 709 by VANIA DOWNING RN MD NOTIFIED VIA PHONE CALL, AWAITING CALL BACK. Addendum: 07/25/20 at 0710 by VANIA DOWNING RN ENDORSED TO RAFAELA SIMONS
--- NOTE | 2020-07-25 07:08 | NUR ---
RN NOTE PATIENT REMAINS IN ROOM. NO SIGNS OF RESPIRATORY DISTRESS. ON 2 L OF OXYGEN VIA NC SATURATING AT 100%. NS AT TKO INFUSING VIA JOHN PICC LINE. GTUBE FEEDING OF JEVITY 1.2 CURRENTLY AT 30 CC/HR, PLACEMENT WAS VERIFIED, ASPIRATION PRECAUTIONS MAINTAINED AT ALL TIMES. BEVERLY CATHETER IN PLACE, MINIMAL OUTPUT NOTED. SAFETY MEASURES IMPLEMENTED, BED IN LOWEST POSITION, LOCKED, SIDE RAILS UP, CALL LIGHT WITHIN REACH. ALL NEEDS AND ORDERS ADDRESSED DURING THE SHIFT. ALL DUE MEDS ADMINISTERED ORDERED; PATIENT TOLERATED WELL.PATIENT KEPT CLEAN AND COMFORTABLE WITHIN THE SHIFT. ENDORSED TO RAFAELA SIMONS FOR CONTINUATION OF CARE.
--- NOTE | 2020-07-25 07:30 | NUR ---
RN OPENING NOTE PT IN BED AWAKE, A/Ox1 ON NC 3LPM SPO2 100% WITH NO SIGNS OF SOB OR RESP DISTRESS. PT DENIES PAIN OR DISCOMFORT. MEDSURG PT. BEVERLY CATH IN PLACE, DRAININGCLEAR WAY[place] URINE BY GRAVITY. G-TUBE IN PLACE AND RUNNING JEVITY 1.2 AT 60ML/HR. G-TUBE CHECKED FOR PLACEMENT, ABD BINDER IN PACE. PT HAS RT UPPER ARM PICC LINE IN PLACE INFUSING TKO @ 3ML/HR, OTHER LINES FLUSHED AND PATENT, SALINE LOCKED. NO SIGNS OF INFILTRATION. SAFETY PRECAUTIONS IN PLACE, CALL FREEMAN WITHIN REACH, BED LOCKED AND IN LOWEST POSITION, PT IN SEMI BA'S, WILL CONT TO MONITOR.
[2020-07-25] MEDS: BENZTROPINE MESYLATE (1 MG) 1 MG TABLET GT SCH ×2 (08:11→17:06)
[2020-07-25] MEDS: PROSOURCE / PROSTAT (PYXIS) 30 ML UDC GT SCH ×2 (08:11→17:23)
[2020-07-25] MEDS: PANTOPRAZOLE 40 MG VIAL IV SCH (08:11)
[2020-07-25] MEDS: busPIRone 5 MG TABLET GT SCH ×3 (08:11→17:05)
[2020-07-25] MEDS: GABAPENTIN 300 MG CAPSULE GT SCH ×3 (08:11→17:06)
--- NOTE | 2020-07-25 08:40 | NUR ---
RN NOTE STARTED 1 UNIT OF PRBC AT 0831. ALL SAFETY CHECKS MONITORED PER PROTOCOL PRIOR TO TRANSFUSION BEGINNING. PT VS's WNL PRIOR TO INFUSION AND MONITORED CLOSELY IN PT ROOM. VS's WNL, TOLERATING TRANSFUSION WELL. WILL CONTINUE TO MONITOR PER PROTOCOL
[2020-07-25] MEDS: NEOMY SULF/BACITRAC ZN/POLY 15 GM TUBE TP SCH (09:00)
--- NOTE | 2020-07-25 09:00 | NUR ---
RN NOTE SPOKE TO PHARMACY. OK TO PUSH BACK ZULEMA ASHLEY TO A LATER TIME, PT RECEIVING 1 UNIT PRBC TRANSFUSION CURRENTLY
[2020-07-25 09:15] LABS: EOSINOPHILS % (MANUAL) 1 % (0-4); LYMPHOCYTES % (MANUAL) 25 % (16-48); MONOCYTES % (MANUAL) 9 % (0-11.0); NEUTROPHILS % (MANUAL) 65 (42-76)
[2020-07-25] MEDS: VITAMINS A AND D 56.7 GM TUBE TP SCH ×2 (11:33→17:23)
--- NOTE | 2020-07-25 11:50 | NUR ---
RN NOTE PT TOLERATED I UNIT PRBC TRANSFUSION WELL. ENDED AT 1145. PT VS's WNL THROUGHOUT ENTIRE TRANSFUSION AND POST TRANSFUSION AND ASSESSED PER HOSPITAL PROTOCOL. PT STATES HE FEELS WELL. WILL CONTINUE TO MONITOR
--- NOTE | 2020-07-25 12:59 | NUR ---
removing lines, yelling will give prn med
[2020-07-25] MEDS: LORAZEPAM INJ 2 MG/ML VIAL IV PRN (13:00)
[2020-07-25] MEDS: DIGOXIN 0.125 MG TABLET GT SCH (13:18)
--- NOTE | 2020-07-25 14:20 | NUR ---
RECEIVED REPORT FROM RONAK RUSSO FOR CONTINUITY OF CARE.PT IS SO CONFUSED, RESTLESS,DEMANDING AND TALKATIVE.ATIVAN WAS GIVEN EARLIER.REORIENTATION GIVEN FREQUENTLY. ON ROOM AIR WITH NO SOB. WITH ONGOING GT FEEDING OF JEVITY 1.2 AT 30 ML/HR INFUSING WELL. PT PULLED OUT HIS GTUBE EARLIER PER NURSE. PT HAS NO RESTRAINTS. SEEN BY DESIREE CHAVEZ. TURNED EVERY TWO HRS.WILL MONITOR
[2020-07-25] MEDS: HYDROCODONE/APAP 5/325MG TABLET PO PRN (17:06)
--- NOTE | 2020-07-25 19:00 | NUR ---
PT RESTING IN BED DENYING ANY PAIN OR DISTRESS.PT IS SO RESTLESS,FREQUENTLY ASKING FOR HELP AND ASKS QUESTIONS ABOUT THE BILLS REPETITIVELY EVEN IF ALREADY ANSWERED AND REORIENTATION GIVEN SEVERAL TIMES,PT CONTINUES TO ASK SAME QUESTION.PT PULLS OUT HIS BLANKETS AND COVERS AND ALMOST PULLED OUT HIS GTUBE EVEN IF IT WAS COVERED BY ABDOMINAL BINDER.PT ATTEMPTED PULLING OUT HIS JOHN PICC LINE.EXPLAINED THE PURPOSE OF IT.WILL NOTIFY MD NET DEVELOPER CONTRACT AND ENDORSED TO THE RADIATION OFFICER NURSE.TURNED EVERY TWO HRS.CALL LIGHT PLACED WITHIN REACH.
--- NOTE | 2020-07-25 19:15 | NUR ---
RN NOTES 1914:CALLED RACHEL DORSEY TO SECURE CONSENT FOR UPCOMING PROCEDURE ( EGD) OF PT LEONARD @0615AM, PT DOESNT HAVE ANY FAMILY TO GET CONSENT FROM. RACHEL DORSEY WILL NOT BE AVAILABLE AT THE MOMENT TO SIGN FOR CONSENT FOR PATIENT. [employer]AXI SERVICER MADE AWARE. 1919CALLED DR. ESTEVEZ AND ADVISED HIM THAT NO FAMILY TO SECURE CONSENT FOR EGD PROCEDURE AND FOR THE ANESTHESIA CONSENT. HE SAID HE WILL SIGN THE CONSENT PRIOR TO THE PROCEDURE THIS MORNING. TAXI SERVICER MADE AWARE AND WILL CALL [employer] [employer] CONDITION[employer] MACHINE OPERATOR TO INFORM THIS MATTER. 1929 CALLED [employer] [employer]PER[employer] AND SPOKE WITH DANIELA COLBERT ABOUT CONSENT MATTER THAT DR. ESTEVEZ WILL BE SIGNING CONSENT LEONARD MORNING BEFORE THE PROCEDURE. [employer]AXI SERVICER MADE AWARE
--- NOTE | 2020-07-25 19:15 | NUR ---
RN NOTES RECEIVED PATIENT IN BED SLEEPING COMFORTABLY.PATIENT IN NO S/SX OF ACUTE DISTRESS AT THIS TIME. NO SOB NOTED. PATIENT'S BREATHING IS EVEN AND UNLABORED. ON 4L O2 VIA NC SATURATING @99%. PATIENT ON GTUBE FEEDING OF JEVITY 1.2 @300CC/HR, FEEDING TOLERATING WELL. WITH IV ACCESS AT R PICC LINE ; PATENT, INTACT AND FLUSHING WELL; NO S/S OF INFECTION. BEVERLY CATH IN PLACE, MINIMAL URINE OUTPUT WAYNE COLORED. PATIENT HAS BILATERAL SOFT WRIST RESTRAINTS IN PLACE, ASSESSED PER PROTOCOL. PATIENT WILL BE HAVING EGDD PROCEDURE LEONARD @0615 AM, WILL BE ON NPO AFTER MIDNIGHT. WILL SECURE CONSENT ACCORDINGLY.SAFETY MEASURES HAVE BEEN PROVIDED AND IMPLEMENTED. PATIENT BED ALARM IS ON. HEAD OF BED ELEVATED. BED IS LOCKED, IN LOWEST POSITION AND SIDE RAILS UP. CALL LIGHT WITHIN REACH OF THE PATIENT. APPLICABLE ISOLATION PRECAUTIONS IN PLACE. WILL CONTINUE TO MONITOR AND REASSESS FOR ANY CHANGES AND WILL CARRY OUT ANY ONGOING AND ACTIVE MD ORDER. Addendum: 07/26/20 at 2143 by MIKE SÁNCHEZ RN CORRECTION TUBE FEEDING IS @30MLs/HR & NOT 300MLs/hr
--- NOTE | 2020-07-25 19:30 | NUR ---
ms rn notes Received a call from sorority supervisor Jeanette said pts is for EGD art by Dr Sanders ,pts to be npo post midnight.order noted and carried out will call the responsible republican to obtained consent for EGD.
--- NOTE | 2020-07-25 22:00 | NUR ---
RN NOTES NO NOTED CHANGES TO PATIENT CONDITION/STATUS. MEDICAL CENTER DIRECTOR MADE AWARE. WILL CONTINUE TO MONITOR AND REASSESS FOR ANY CHANGES THROUGHOUT THE SHIFT.
--- NOTE | 2020-07-26 | NUR ---
RN NOTES PATIENT PLACED ON NPO POST MIDNIGHT IN PREPARATION FOR THE AM PROCEDURE OF EGD. SAFETY SCIENTIST MADE AWARE. WILL CONTINUE TO MONITOR AND REASSESS FOR ANY CHANGES THROUGHOUT THE SHIFT.
[2020-07-26] MEDS: MEROPENEM 500 MG in IV NS 0.9% 100 ML IV SCH ×3 (00:13→17:00)
--- NOTE | 2020-07-26 02:00 | NUR ---
RN NOTES NO NOTED CHANGES TO PATIENT CONDITION/STATUS. CERTIFIED SKI PATROLLER MADE AWARE. WILL CONTINUE TO MONITOR AND REASSESS FOR ANY CHANGES THROUGHOUT THE SHIFT.
[2020-07-26 04:00] VITALS: BP 109/71
--- NOTE | 2020-07-26 05:35 | NUR ---
RN NOTES OR STAFF PICKED-UP PATIENT FOR THE SCHEDULED PROCEDURE OF EGD. VITALS SIGNS TAKEN AND RECORDED PRIOR FOR PT LEAVING THE [facility]; ALL WNL. CHART HANDED OVER TO OR STAFF, WITH PREOP CHECK LIST AND CONSENT FORMS WHICH WILL BE SIGNED BY DR. ESTEVEZ. INSURANCE SALESMAN MADE AWARE.
[2020-07-26 06:05] LABS: BASOPHILS % (AUTO) 0.3 % (0.0-2.0); EOSINOPHILS % (AUTO) 0.3 % (0.0-6.0); HEMATOCRIT 25 % (39-51); HEMOGLOBIN 8.3 g/dL (13.5-17.5); LYMPHOCYTES % (AUTO) 19.4 % (20.0-44.0); MEAN CORPUSCULAR HGB CONC 34 g/dl (31.0-36.0); MEAN CORPUSCULAR VOLUME 89 fL (80-96); MONOCYTES # (AUTO) 0.3 /CMM (0.1-1.30); MONOCYTES % (AUTO) 6.3 % (2.0-12.0); NEUTROPHILS # (AUTO) 3.9 /CMM (1.8-8.9); NEUTROPHILS % (AUTO) 73.7 % (43.0-81.0); PLATELET COUNT (AUTO) 81 /CMM (150-450); RED BLOOD CELL COUNT(AUTO) 2.77 MIL/uL (4.5-6.0); WHITE BLOOD COUNT (AUTO) 5.3 K/uL (4.3-11.0)
[2020-07-26] MEDS ORDERED: ANESTHESIA TRAY IN PYXIS 1 EA TRAY MC ONE (06:08)
[2020-07-26 06:11] LABS: CALCIUM, SERUM 7.9 mg/dL (8.5-10.1); CARBON DIOXIDE 32 mmol/L (21-32); CHLORIDE 105 mmol/L (98-107); CREATININE 0.5 mg/dL (0.6-1.3); GLUCOSE 90 mg/dL (74-106); POTASSIUM 3.7 mmol/L (3.5-5.1); SODIUM SERUM 141 mmol/L (136-145); UREA NITROGEN, BLOOD 17 mg/dL (7-18)
--- NOTE | 2020-07-26 06:33 | NUR ---
RN NOTES PATIENT WAS SENT BACK TO [facility] FROM OR DEPT, PROCEDURE HASN'T BEEN DONE. WILL CONTACT MD FOR FURTHER PLAN. EMBROIDERY OPERATOR MADE AWARE. WILL FOLLOW UP WITH MD.
--- NOTE | 2020-07-26 06:38 | NUR ---
RN NOTES CALLED DR. ESTEVEZ , ROUTED TO AND LEFT MESSAGE, REQUESTED FOR CALLBACK TO VERIFY FOR PLAN FOR PATIENT. ENGINE SPECIALIST MADE AWARE. .
--- NOTE | 2020-07-26 06:48 | NUR ---
RN NOTES PATIENT REMAINS IN ROOM IN NO SIGNS OF RESPIRATORY DISTRESS. PATIENT SATURATING 98% OF 02. VITAL SIGNS WNL. IV LINE MAINTAINED, INTACT, PATENT AND FLUSHING, NO SITE REDNESS OR INFILTRATION. WILL ENDORSE TO MORNING SHIFT RN TO F/U WITH DR. ESTEVEZ REGARDING PLAN FOR PT IF PROCEDURE WILL PROCEED OR NOT (SHOULD WE RESUME FEEDING OR PT NEEDS TO REMAIN NPO FOR THE PROCEDURE). SAFETY PRECAUTIONS IN PLACE AND COMFORT MEASURES RENDERED. BED IN LOWEST POSITION, CALL LIGHT WITHIN REACH, BREAKS ON, SIDE RAILS UP. ALL NEEDS ATTENDED, MEDICATIONS GIVEN SCHEDULED AND ORDERED ; SHIFT ASSESSMENT/BEDBATH/SKIN CARE DONE. PATIENT KEPT CLEAN AND DRY. WILL ENDORSE TO INCOMING SHIFT FOR GEOFFREY WITH ALL PERTINENT INFO REGARDING PATIENT STATUS.
--- NOTE | 2020-07-26 07:10 | NUR ---
RN OPENING NOTES RECEIVED PT A/O X1-2, CONFUSED. ON 4L O2 VIA NC SATURATING @99%. NO SOB OR ANY SIGNS OF ACUTE DISTRESS AT THIS TIME. NON PRODUCTIVE COUGH. PT IS NPO. IV ACCESS AT R PICC LINE INTACT, PATENT AND FLUSHING WELL. BEVERLY CATH DRAINING YELLOWISH URINE OUTPUT. PT HAS BILATERAL SOFT WRIST RESTRAINTS IN PLACE, ASSESSED PER PROTOCOL. SAFETY MEASURES IMPLEMENTED. CALL LIGHT WITHIN REACH. BED LOCKED AND IN LOWEST POSITION WITH SIDE RAILS UP. BED ALARM ON. HEAD OF BED ELEVATED. WILL CONTINUE TO MONITOR.
[2020-07-26 07:41] LABS: BAND % (MANUAL) 4 % (0.0-5.0); LYMPHOCYTES % (MANUAL) 16 % (16-48); METAMYELOCYTES % 1 % (0-0); MONOCYTES % (MANUAL) 6 % (0-11.0); NEUTROPHILS % (MANUAL) 73 (42-76)
[2020-07-26] MEDS: NEOMY SULF/BACITRAC ZN/POLY 15 GM TUBE TP SCH (09:00)
[2020-07-26] MEDS: VITAMINS A AND D 56.7 GM TUBE TP SCH ×2 (09:00→17:59)
[2020-07-26] MEDS: PROSOURCE / PROSTAT (PYXIS) 30 ML UDC GT SCH ×2 (09:00→17:00)
[2020-07-26] MEDS: busPIRone 5 MG TABLET GT SCH ×3 (10:18→17:59)
[2020-07-26] MEDS: BENZTROPINE MESYLATE (1 MG) 1 MG TABLET GT SCH ×2 (10:18→17:59)
[2020-07-26] MEDS: GABAPENTIN 300 MG CAPSULE GT SCH ×3 (10:18→17:59)
[2020-07-26] MEDS: PANTOPRAZOLE 40 MG VIAL IV SCH (10:18)
[2020-07-26 12:00] VITALS: BP 124/86
[2020-07-26] MEDS: DIGOXIN 0.125 MG TABLET GT SCH (13:38)
[2020-07-26] MEDS ORDERED: FUROSEMIDE 40 MG/4 ML VIAL IV STA (16:45)
[2020-07-26] MEDS: JEVITY 1.2 CAL 1,000 ML BOTTLE GT PRN (17:59)
--- NOTE | 2020-07-26 19:10 | NUR ---
RN NOTES RECEIVED PATIENT IN BED SLEEPING COMFORTABLY.PATIENT IN NO S/SX OF ACUTE DISTRESS AT THIS TIME. NO SOB NOTED. PATIENT'S BREATHING IS EVEN AND UNLABORED. ON 4L O2 VIA NC SATURATING @99%. PATIENT ON GTUBE FEEDING OF JEVITY 1.2 @60CC/HR, FEEDING TOLERATING WELL. WITH IV ACCESS AT R PICC LINE ; PATENT, INTACT AND FLUSHING WELL; NO S/S OF INFECTION. BEVERLY CATH IN PLACE, MINIMAL URINE OUTPUT WAYNE COLORED. PATIENT HAS BILATERAL SOFT WRIST RESTRAINTS IN PLACE, ASSESSED PER PROTOCOL.SAFETY MEASURES HAVE BEEN PROVIDED AND IMPLEMENTED. PATIENT BED ALARM IS ON. HEAD OF BED ELEVATED. BED IS LOCKED, IN LOWEST POSITION AND SIDE RAILS UP. CALL LIGHT WITHIN REACH OF THE PATIENT. APPLICABLE ISOLATION PRECAUTIONS IN PLACE. WILL CONTINUE TO MONITOR AND REASSESS FOR ANY CHANGES AND WILL CARRY OUT ANY ONGOING AND ACTIVE MD ORDER.
--- NOTE | 2020-07-26 19:41 | NUR ---
RN CLOSING NOTES PT RESTING IN BED. A/O X1-2, CONFUSED. ON 4L O2 VIA NC SATURATING @99%. NO SOB OR ANY SIGNS OF ACUTE DISTRESS AT THIS TIME. NON PRODUCTIVE COUGH. PT IS NPO. IV ACCESS AT R PICC LINE INTACT, PATENT AND FLUSHING WELL. BEVERLY CATH DRAINING YELLOWISH URINE OUTPUT. PT HAS BILATERAL SOFT WRIST RESTRAINTS IN PLACE, ASSESSED PER PROTOCOL. SAFETY MEASURES IMPLEMENTED. CALL LIGHT WITHIN REACH. BED LOCKED AND IN LOWEST POSITION WITH SIDE RAILS UP. BED ALARM ON. HEAD OF BED ELEVATED. WILL ENDORSE TO NIGHT NURSE FOR GEOFFREY.
[2020-07-26 20:00] VITALS: BP 124/86
--- NOTE | 2020-07-26 22:30 | NUR ---
RN NOTES NO NOTED CHANGES TO PATIENT CONDITION/STATUS. OVEN UNLOADER MADE AWARE. WILL CONTINUE TO MONITOR AND REASSESS FOR ANY CHANGES THROUGHOUT THE SHIFT.
[2020-07-27] MEDS: MEROPENEM 500 MG in IV NS 0.9% 100 ML IV SCH ×3 (00:19→17:10)
--- NOTE | 2020-07-27 03:00 | NUR ---
RN NOTES NO NOTED CHANGES TO PATIENT CONDITION/STATUS. LEARNING DISABLED TEACHER MADE AWARE. WILL CONTINUE TO MONITOR AND REASSESS FOR ANY CHANGES THROUGHOUT THE SHIFT.
[2020-07-27 04:00] VITALS: BP 125/77
[2020-07-27 06:05] LABS: CALCIUM, SERUM 8.1 mg/dL (8.5-10.1); CREATININE 0.8 mg/dL (0.6-1.3); POTASSIUM 3.7 mmol/L (3.5-5.1)
--- NOTE | 2020-07-27 06:48 | NUR ---
RN NOTE: PATIENT REMAINS IN ROOM COMFORTABLY. NO SIGNS OF RESPIRATORY DISTRESS. SAFETY MEASURES IMPLEMENTED, BED IN LOWEST POSITION, LOCKED, SIDE RAILS UP, CALL LIGHT WITHIN REACH. ALL NEEDS AND ORDERS ADDRESSED DURING THE SHIFT. ALL DUE MEDS GIVEN ORDERED & SCHEDULED ; PATIENT TOLERATED WELL.PATIENT KEPT CLEAN AND COMFORTABLE WITHIN THE SHIFT. ENDORSED TO INCOMING SHIFT RN FOR CONTINUITY OF CARE.
--- NOTE | 2020-07-27 07:00 | NUR ---
RN OPENING NOTES RECEIVED PT A/O X1-2, CONFUSED. ON 4L O2 VIA NC SATURATING @99%. NO SOB OR ANY SIGNS OF ACUTE DISTRESS AT THIS TIME. NON PRODUCTIVE COUGH. GTUBE FEEDING JEVITY 1.2 @60MLS/HR. POSITIVE PLACEMENT CHECKED THRU AUSCULTATION, RESIDUAL LESS THAN 5ML. TOLERATING FEEDING WELL. IV ACCESS AT R PICC LINE INTACT, PATENT AND FLUSHING WELL. BEVERLY CATH DRAINING YELLOWISH URINE OUTPUT. PT HAS BILATERAL SOFT WRIST RESTRAINTS IN PLACE, ASSESSED PER PROTOCOL. SAFETY MEASURES IMPLEMENTED. CALL LIGHT WITHIN REACH. BED LOCKED AND IN LOWEST POSITION WITH SIDE RAILS UP. BED ALARM ON. HEAD OF BED ELEVATED. WILL CONTINUE TO MONITOR.
[2020-07-27] MEDS: busPIRone 5 MG TABLET GT SCH ×3 (08:53→17:10)
[2020-07-27] MEDS: PANTOPRAZOLE 40 MG VIAL IV SCH (08:53)
[2020-07-27] MEDS: GABAPENTIN 300 MG CAPSULE GT SCH ×3 (08:53→17:11)
[2020-07-27] MEDS: PROSOURCE / PROSTAT (PYXIS) 30 ML UDC GT SCH ×2 (08:54→17:12)
[2020-07-27] MEDS: BENZTROPINE MESYLATE (1 MG) 1 MG TABLET GT SCH ×2 (08:54→17:11)
[2020-07-27] MEDS: VITAMINS A AND D 56.7 GM TUBE TP SCH ×2 (08:55→17:12)
[2020-07-27] MEDS: NEOMY SULF/BACITRAC ZN/POLY 15 GM TUBE TP SCH (08:55)
--- NOTE | 2020-07-27 09:26 | NUR ---
patient coughing a lot gurgly,suctioned and able to obtained moderate amount of yellowish plhegm,Dr. Pineda aware.keep hob at 45 degrees,no residual ,will hold feeding for an hour as ordered,will continue to monitor.
--- NOTE | 2020-07-27 09:30 | NUR ---
RN NOTES PT IN RESPIRATORY DISTRESS. DR. DUMONT ORDERED TO HOLD FEEDING UNTIL STABLE. THEN RESUME FEEDING @40MLS/HR. WILL CONTINUE TO MONITOR
--- NOTE | 2020-07-27 09:35 | NUR ---
aspiration precaution observed.
[2020-07-27] MEDS: HYDROCODONE/APAP 5/325MG TABLET PO PRN (10:38)
--- NOTE | 2020-07-27 10:40 | NUR ---
patient c/o pain when coughing prn meds given,tried to suction again patient refused.
--- NOTE | 2020-07-27 11:28 | NUR ---
dr. kang notified pt coughing and gurgly.
[2020-07-27] MEDS ORDERED: ALBUTEROL HALF STRENGTH 1.25 MG/3 ML VIAL.NEB ONE (11:29)
[2020-07-27] MEDS ORDERED: ALBUTEROL HALF STRENGTH 1.25 MG/3 ML VIAL.NEB NEB ONE (11:30)
[2020-07-27 12:00] VITALS: BP 129/76
--- NOTE | 2020-07-27 12:10 | NUR ---
off restraint,will continue to monitor.
[2020-07-27 12:58] LABS: ABG BASE EXCESS 6.3 mmol/L; ABG OXYGEN SATURATION 98.6 % (92.0-98.5); ABG PCO2 39.2 mmHg (35.0-45.0); ABG PH 7.501 (7.350-7.450); ABG PO2 134.2 mmHg (75.0-100.0); COHb 1.7 % (0.5-1.5); MetHb 0.3 % (0.0-1.5); O2Hb 96.6 % (94.0-97.0); SITE, ABG Left Brachial; VENT MODE, BG nrb
[2020-07-27] MEDS: DIGOXIN 0.125 MG TABLET GT SCH (13:01)
--- NOTE | 2020-07-27 13:08 | NUR ---
ABG RESULT DONE ,RELAYED TO DR. FIELD WILL TIRATE OXYGEN ,RT AWARE.
[2020-07-27] MEDS: IPRATROPIUM NEB FS 0.5 MG/2.5 ML AMPUL.NEB NEB SCH ×2 (14:24→20:33)
[2020-07-27] MEDS: ALBUTEROL HALF STRENGTH 1.25 MG/3 ML VIAL.NEB NEB SCH ×2 (14:24→20:33)
--- NOTE | 2020-07-27 15:23 | NUR ---
PATIENT ASLEEP,CALM ,RESPIRATORY DISTRESS RESOLVED ,SAT 98% ON 02 MASK,WILL CONTINUE TO MONITOR.ASPIRATION PRECAUTION OBSERVED.
[2020-07-27] MEDS: ACETAMINOPHEN 325 MG TABLET PO PRN (17:11)
--- NOTE | 2020-07-27 17:45 | NUR ---
RT 1132 BREATHING TX GIVEN TO PATIENT PER CHARGE NURSE AND MD. NTS PT W/ MOD THK RED/PEREZ SECRETIONS PT UNCOMPLIANT, TRIED ORAL SX PT REF. ATTEMPTED AND GOT MINIMAL. 1200 PT HAD EPISODE OF LOW SP02 PLACED ON NRB. RN AND JOINT FILLER AWARE,WILL CONTINUE TO MONITOR AN OBTAIN AN ABG. 1300 ABG RESULTS RELAYED TO RN, TITRATED PT SIMPLE MASK
--- NOTE | 2020-07-27 19:20 | NUR ---
RN OPENING NOTES PATIENT A/O 1-2, CONFUSED. NO SOB OR ANY RESPIRATORY DISTRESS AT THIS TIME. ON 02 7LPM VIA SIMPLE MASK, O2 SATURATION 98%. NON PRODUCTIVE COUGH. HEAD OF BED ELEVATED. GTUBE FEEDING JEVITY 1.2 @ 40ML/HR. INTACT AND PATENT. PLACEMENT CHECKED. BEVERLY CATHETER IN PLACE, DRAINING YELLOW URINE OUTPUT. RIGHT UPPER ARM PICC LINE. INTACT, PATENT, AND FLUSHING WELL. BED LOCKED AND IN LOWEST POSITION. SIDERAILS UP X2. ALL SAFETY MEASURES IMPLEMENTED. CALL LIGHT WITHIN REACH.
--- NOTE | 2020-07-27 19:27 | NUR ---
RN CLOSING NOTES PT RESTING IN BED. A/O X1-2, CONFUSED. ON 7L O2 VIA NC SATURATING @96%. NO SOB OR ANY SIGNS OF ACUTE DISTRESS AT THIS TIME. PRODUCTIVE COUGH. IV ACCESS AT R PICC LINE INTACT, PATENT AND FLUSHING WELL. BEVERLY CATH DRAINING YELLOWISH URINE OUTPUT. FEEDING RESUMED @40MLS/HR. TOLERATING FEEDING WELL. SAFETY MEASURES IMPLEMENTED. CALL LIGHT WITHIN REACH. BED LOCKED AND IN LOWEST POSITION WITH SIDE RAILS UP. BED ALARM ON. HEAD OF BED ELEVATED. WILL ENDORSE TO NIGHT NURSE FOR GEOFFREY.
[2020-07-27 20:00] VITALS: BP 100/53
[2020-07-27] MEDS: JEVITY 1.2 CAL 1,000 ML BOTTLE GT PRN (20:17)
[2020-07-28] VITALS: BP 122/69
[2020-07-28] MEDS: MEROPENEM 500 MG in IV NS 0.9% 100 ML IV SCH ×3 (00:34→16:16)
[2020-07-28] MEDS: IPRATROPIUM NEB FS 0.5 MG/2.5 ML AMPUL.NEB NEB SCH ×5 (02:28→20:46)
[2020-07-28] MEDS: ALBUTEROL HALF STRENGTH 1.25 MG/3 ML VIAL.NEB NEB SCH ×5 (02:28→20:47)
[2020-07-28 04:00] VITALS: BP 117/61
[2020-07-28] MEDS: LORAZEPAM INJ 2 MG/ML VIAL IV PRN ×3 (04:46→23:47)
[2020-07-28 06:21] LABS: EOSINOPHILS % (AUTO) 0.2 % (0.0-6.0); HEMATOCRIT 22 % (39-51); HEMOGLOBIN 7.3 g/dL (13.5-17.5); LYMPHOCYTES # (AUTO) 0.6 /CMM (0.8-4.8); LYMPHOCYTES % (AUTO) 5.5 % (20.0-44.0); MEAN CORPUSCULAR HGB CONC 33 g/dl (31.0-36.0); MEAN CORPUSCULAR VOLUME 89 fL (80-96); MONOCYTES # (AUTO) 0.3 /CMM (0.1-1.30); MONOCYTES % (AUTO) 2.7 % (2.0-12.0); NEUTROPHILS # (AUTO) 10.7 /CMM (1.8-8.9); NEUTROPHILS % (AUTO) 91.6 % (43.0-81.0); PLATELET COUNT (AUTO) 72 /CMM (150-450); RED BLOOD CELL COUNT(AUTO) 2.47 MIL/uL (4.5-6.0); WHITE BLOOD COUNT (AUTO) 11.6 K/uL (4.3-11.0)
[2020-07-28 06:35] LABS: CARBON DIOXIDE 34 mmol/L (21-32); CHLORIDE 106 mmol/L (98-107); CREATININE 0.5 mg/dL (0.6-1.3); GLUCOSE 133 mg/dL (74-106); POTASSIUM 3.4 mmol/L (3.5-5.1); SODIUM SERUM 142 mmol/L (136-145); UREA NITROGEN, BLOOD 24 mg/dL (7-18)
--- NOTE | 2020-07-28 07:18 | NUR ---
RN CLOSING NOTE PATIENT A/O 1-2, CONFUSED. NO SOB OR ANY RESPIRATORY DISTRESS AT THIS TIME. ON 02 4LPM VIA NASAL CANNULA, O2 SATURATION 98%. NON PRODUCTIVE COUGH STILL NOTED. DEEP SUCTION NOT DONE DUE TO EPISODE OF BLEEDING WHILE SUCTIONING IN AM SHIFT. ENCOURAGE PATIENT TO COUGH OUT. ON TELE MONITORING, A-FIB, HR 100'S. HEAD OF BED ELEVATED. GTUBE FEEDING JEVITY 1.2 @ 40ML/HR. INTACT AND PATENT. PLACEMENT CHECKED. BEVERLY CATHETER IN PLACE, DRAINING YELLOW URINE OUTPUT. ATIVAN GIVEN AT 0446 DUE TO PATIENT'S RESTLESSNESS, AND EFFECTIVE. ALL NEEDS ATTENDED. BED LOCKED AND IN LOWEST POSITION. SIDERAILS UP X2. ALL SAFETY MEASURES IMPLEMENTED. CALL LIGHT WITHIN REACH.
--- NOTE | 2020-07-28 07:51 | NUR ---
RN OPENING NOTE PATIENT IS A/O X1 TO NAME, CURRENTLY IN BED SLEEPING. ON OXYGEN THERAPY AT 4LPM VIA NASAL CANNULA, OXYGEN SATURATION 93%. PATIENT HAS A LEFT UPPER ARM PICC LINE, INTACT AND PATENT. NO SIGNS OF INFECTION NOTED AT THIS TIME, NO REDNESS/SWELLING. PATIENT CONTINUES ON GT TUBE FEEDING JEVITY 1.2 @ 40ML/HR, TOLERATING WELL AT THIS TIME. PATIENT IS CURRENTLY AN ASPIRATION RISK, G TUBE FEEDING WAS DECREASED FROM 60ML/HR, MD AWARE. BEVERLY CATHETER INTACT, NO REDNESS/SIGNS OF INFECTION AT THIS TIME. BED LOCKED IN LOWEST POSITION, HOB RAISED TO 30 DEGREES, SIDE RAILS UP X2, CALL LIGHT WITHIN REACH. ALL SAFETY MEASURES IMPLEMENTED PER HOSPITAL PROTOCOL.
[2020-07-28 08:00] VITALS: BP 109/68
[2020-07-28] MEDS: busPIRone 5 MG TABLET GT SCH ×3 (08:27→16:15)
[2020-07-28] MEDS: BENZTROPINE MESYLATE (1 MG) 1 MG TABLET GT SCH ×2 (08:27→16:15)
[2020-07-28] MEDS: GABAPENTIN 300 MG CAPSULE GT SCH ×3 (08:27→16:15)
[2020-07-28] MEDS: PANTOPRAZOLE 40 MG/PACK PACK GT SCH (08:27)
[2020-07-28] MEDS: PROSOURCE / PROSTAT (PYXIS) 30 ML UDC GT SCH ×2 (08:28→16:15)
[2020-07-28 08:55] LABS: BAND % (MANUAL) 11 % (0.0-5.0); LYMPHOCYTES % (MANUAL) 8 % (16-48); MONOCYTES % (MANUAL) 3 % (0-11.0); NEUTROPHILS % (MANUAL) 78 (42-76)
[2020-07-28] MEDS: NEOMY SULF/BACITRAC ZN/POLY 15 GM TUBE TP SCH (09:21)
[2020-07-28] MEDS: VITAMINS A AND D 56.7 GM TUBE TP SCH ×2 (09:22→16:17)
[2020-07-28] MEDS ORDERED: POTASSIUM CHLORIDE 20 MEQ POWDER PACKET GT ONE (10:30)
--- NOTE | 2020-07-28 10:54 | NUR ---
RN FEEDING CHANGE SPOKE TO DR ABOUT PATIENT'S NUTRITIONAL STATUS. PATIENT HAD MINIMAL RESIDUAL. FEEDING INCREASED TO 60ML/HR. PATIENT IS TOLERATING INCREASED FEEDING WELL AT THIS TIME.
--- NOTE | 2020-07-28 11:50 | NUR ---
RN NOTE CLIENT WAS VERY AGITATED AND PULLING ON BEVERLY TUBING. PULLING OFF NASAL CANNULA AND REFUSING TO PUT IT BACK ON. CLIENT WAS VERY ANXIOUS, PRN ATIVAN GIVEN. PROVIDED COMFORT MEASUREMENTS
[2020-07-28] MEDS: HYDROCODONE/APAP 5/325MG TABLET PO PRN (13:35)
[2020-07-28] MEDS: DIGOXIN 0.125 MG TABLET GT SCH (13:36)
--- NOTE | 2020-07-28 14:24 | NUR ---
RN MS1 EGD INFO/[facility] PHONE CALL FROM SURGERY RECEIVED STATING THAT PATIENT'S EGD HAS BEEN RESCHEDULED TO TOMORROW AND TO KEEP PATIENT NPO AFTER 22:00. PATIENT VERIFIED USING NAME AND BIRTHDAY. PATIENT HAS TO GO THROUGH [facility] DUE TO NOT HAVING A NEXT OF KIN. CURRENTLY UNABLE TO FIND AN ORDER FOR EGD. CHARGE NURSE NOTIFIED.
[2020-07-28 16:00] VITALS: BP 99/57
[2020-07-28] MEDS: JEVITY 1.2 CAL 1,000 ML BOTTLE GT PRN (16:35)
--- NOTE | 2020-07-28 18:53 | NUR ---
RN CLOSING NOTE PATIENT IN BED SLEEPING. A/OX1, CONFUSED. NO SOB AT THIS TIME, HOWEVER CLIENT IS REFUSING TO WEAR NASAL CANNULA FOR OXYGEN THERAPY. OXYGEN SATURATION 98%, NO S/S OF RESPIRATORY DISTRESS. CLIENT D/BELLA FROM TELE TO MED SURG UNIT. PICC LINE INTACT, NO S/S OF INFECTION AT THIS TIME. CALL LIGHT WITHIN NORMAL REACH, ALL SAFETY MEASURES TAKEN. WILL ENDORSE TO NEXT SHIFT.
--- NOTE | 2020-07-28 19:33 | NUR ---
RN OPENING NOTE PATIENT IS A/O X1 TO NAME, CONFUSED. NO SOB OR ANY RESPIRATORY DISTRESS AT THIS TIME. ON O2 4LPM VIA NASAL CANNULA, O2 ST 98%. HEAD OF BED KEPT ELEVATED TO 30 DEGREES. ON JEVITY 1.2 @ 60 ML/HR. PLACEMENT CHECKED AND VERIFIED. TOLERATING FEEDING WELL. LEFT UPPER ARM PICC LINE, PATENT AND INTACT. BEVERLY CATHETER INTACT, DRAINING YELLOW URINE OUT PUT. BED LOCKED AND IN LOWEST POSITION. SIDE RAILS UP X2. ALL SAFETY MEASURES IMPLEMENTED. CALL LIGHT WITHIN REACH. WILL CONTINUE TO MONITOR.
[2020-07-28 20:00] VITALS: BP 103/61
[2020-07-29] MEDS: MEROPENEM 500 MG in IV NS 0.9% 100 ML IV SCH ×3 (00:09→16:30)
[2020-07-29] MEDS: IPRATROPIUM NEB FS 0.5 MG/2.5 ML AMPUL.NEB NEB SCH ×5 (02:12→20:33)
[2020-07-29] MEDS: ALBUTEROL HALF STRENGTH 1.25 MG/3 ML VIAL.NEB NEB SCH ×5 (02:12→20:33)
[2020-07-29 04:00] VITALS: BP 117/70
[2020-07-29 06:11] LABS: CARBON DIOXIDE 33 mmol/L (21-32); CHLORIDE 107 mmol/L (98-107); CREATININE 0.5 mg/dL (0.6-1.3); GLUCOSE 107 mg/dL (74-106); POTASSIUM 3.9 mmol/L (3.5-5.1); SODIUM SERUM 142 mmol/L (136-145); UREA NITROGEN, BLOOD 23 mg/dL (7-18)
--- NOTE | 2020-07-29 07:00 | NUR ---
RN CLOSING NOTE PATIENT IS A/O X1 TO NAME, CONFUSED. NO SOB OR ANY RESPIRATORY DISTRESS AT THIS TIME. ON O2 2LPM VIA NASAL CANNULA, O2 ST 98%. HEAD OF BED KEPT ELEVATED TO 30 DEGREES. NPO SINCE MIDNIGHT FOR POSSIBLE EGD. LEFT UPPER ARM PICC LINE, PATENT AND INTACT. BEVERLY CATHETER INTACT, DRAINING YELLOW URINE OUTPUT. BED LOCKED AND IN LOWEST POSITION. SIDE RAILS UP X2. ALL SAFETY MEASURES IMPLEMENTED. CALL LIGHT WITHIN REACH. WILL CONTINUE TO MONITOR.
[2020-07-29 08:00] VITALS: BP 110/53
[2020-07-29 08:07] LABS: HEMOGLOBIN 7.2 g/dL (13.5-17.5); MEAN CORPUSCULAR VOLUME 90 fL (80-96); MONOCYTES # (AUTO) 0.3 /CMM (0.1-1.30)
[2020-07-29 08:11] LABS: BASOPHILS % (AUTO) 0.4 % (0.0-2.0); EOSINOPHILS % (AUTO) 0.6 % (0.0-6.0); HEMATOCRIT 23 % (39-51); LYMPHOCYTES # (AUTO) 0.8 /CMM (0.8-4.8); LYMPHOCYTES % (AUTO) 16.9 % (20.0-44.0); MEAN CORPUSCULAR HGB CONC 32 g/dl (31.0-36.0); MONOCYTES % (AUTO) 6.1 % (2.0-12.0); NEUTROPHILS # (AUTO) 3.6 /CMM (1.8-8.9); PLATELET COUNT (AUTO) 72 /CMM (150-450); RED BLOOD CELL COUNT(AUTO) 2.52 MIL/uL (4.5-6.0); WHITE BLOOD COUNT (AUTO) 4.7 K/uL (4.3-11.0)
[2020-07-29] MEDS: GABAPENTIN 300 MG CAPSULE GT SCH ×3 (08:49→16:30)
[2020-07-29] MEDS: PANTOPRAZOLE 40 MG/PACK PACK GT SCH (08:49)
[2020-07-29] MEDS: busPIRone 5 MG TABLET GT SCH ×3 (08:49→16:30)
[2020-07-29] MEDS: BENZTROPINE MESYLATE (1 MG) 1 MG TABLET GT SCH ×2 (08:49→16:30)
[2020-07-29] MEDS: VITAMINS A AND D 56.7 GM TUBE TP SCH ×2 (08:58→16:31)
[2020-07-29] MEDS: NEOMY SULF/BACITRAC ZN/POLY 15 GM TUBE TP SCH (08:58)
--- NOTE | 2020-07-29 09:19 | NUR ---
PT WAS PULLING AT PEG TUBE, UNKNOWN IF TUBE WAS PULLED OUT A LITTLE OR NOT, FLANGE WAS NOT NEXT TO PT'S SKIN. DR. DUMONT NOTIFIED, RESTRAINTS ORDERED AND APPLIED. ABD BINDER IN PLACE. KUB ORDERED TO VERIFY PLACEMENT PRIOR TO MEDS GIVEN OR TF RESTARTED.
[2020-07-29] MEDS: PROSOURCE / PROSTAT (PYXIS) 30 ML UDC GT SCH ×2 (09:46→16:31)
--- NOTE | 2020-07-29 10:09 | NUR ---
PEG TUBE PLACEMENT VERIFIED BY KUB. WILL RESUME TUBE FEEDING AND GIVE AM MEDS NOW. NO EGD TODAY, WILL BE DONE OUTPATIENT PER MD'S.
[2020-07-29 11:27] LABS: BAND % (MANUAL) 4 % (0.0-5.0); LYMPHOCYTES % (MANUAL) 19 % (16-48); MONOCYTES % (MANUAL) 8 % (0-11.0); NEUTROPHILS % (MANUAL) 67 (42-76); REACTIVE LYMPHOCYTES 2 % (0-0)
[2020-07-29] MEDS ORDERED: ACETAMINOPHEN 650 MG/20.3 ML UDC PO PRN (11:30)
[2020-07-29] MEDS ORDERED: ACETAMINOPHEN 650 MG/20.3 ML UDC GT PRN (11:30)
[2020-07-29] MEDS: DIGOXIN 0.125 MG TABLET GT SCH (14:10)
[2020-07-29 16:00] VITALS: BP 110/53
--- NOTE | 2020-07-29 17:32 | NUR ---
rn notes patient remains on 2L nasal cannula, no sob noted, patient shows no s/s of pain at this time. 1;1 sitter at all times. confused and tries to pull tubes. Jevity 1.2 @ 60 ml per hour for 24 hours. Bed at the lowest setting, call light within reach, side rails up x2. bed at the lowest setting, call light within reach, side rails up x2.
--- NOTE | 2020-07-29 19:30 | NUR ---
RN OPENING NOTE, PATIENT IN BED WATCHING TV, AWAKE A/O X1 TO NAME, WITH EPISODES OF CONFUSION, BREATHING EVEN AN UNLABORED, NO SOB OR ANY RESPIRATORY DISTRESS AT THIS TIME. AT ROOM AIR WITH O2 SAT LEVEL 95%, LEFT UPPER ARM PICC LINE, PATENT AND INTACT, BEVERLY CATHETER INTACT, DRAINING YELLOW URINE WITH GOOD OUTPUT, HOB ELEVATED FOR ASPIRATION PRECAUTIONS, ON BILATERAL SOF WRIST RESTRAINS, NO ABNORMALITY NOTED AT SITE, NO CIRCULATION COMPROMISED, BED LOCKED AND IN LOWEST POSITION, SIDE RAILS UP X2, ALL SAFETY MEASURES IMPLEMENTED, CALL LIGHT WITHIN REACH, WILL CONTINUE TO MONITOR CLOSELY.
[2020-07-29 20:00] VITALS: BP 121/74
[2020-07-29] MEDS: JEVITY 1.2 CAL 1,000 ML BOTTLE GT PRN (20:20)
[2020-07-30] MEDS: MEROPENEM 500 MG in IV NS 0.9% 100 ML IV SCH ×2 (01:18→08:30)
[2020-07-30] MEDS: ALBUTEROL HALF STRENGTH 1.25 MG/3 ML VIAL.NEB NEB SCH ×2 (01:21→08:49)
[2020-07-30] MEDS: IPRATROPIUM NEB FS 0.5 MG/2.5 ML AMPUL.NEB NEB SCH ×2 (01:21→07:45)
[2020-07-30 04:00] VITALS: BP 135/84
--- NOTE | 2020-07-30 07:00 | NUR ---
RN CLOSING NOTE, PATIENT IN BED, BREATHING EVEN AN UNLABORED, ON O2 2LPM VIA NC, NO SOB OR ANY RESPIRATORY DISTRESS THROUGHOUT THE NIGHT, LEFT UPPER ARM PICC LINE, PATENT AND INTACT, GT IN PLACE, GTF INFUSING WELL AND PATIENT TOLERATED WELL, HOB ELEVATED FOR ASPIRATION PRECAUTIONS, ON BILATERAL SOF WRIST RESTRAINS, NO ABNORMALITY NOTED AT SITE, NO CIRCULATION COMPROMISED, BED LOCKED AND IN LOWEST POSITION, SIDE RAILS UP X2, ALL SAFETY MEASURES IMPLEMENTED, CALL LIGHT WITHIN REACH, WILL ENDORSE CONTINUITY OF CARE TO ONCOMING NURSE.
--- NOTE | 2020-07-30 07:45 | NUR ---
RN OPENING NOTE PATIENT IS A/O X1 TO NAME, CONFUSED. NO SOB OR ANY RESPIRATORY DISTRESS NOTED AT THIS TIME. ON O2 4LPM VIA NASAL CANNULA, O2 ST 98%. HEAD OF BED KEPT ELEVATED TO 30 DEGREES. ON JEVITY 1.2 @ 60 ML/HR. PLACEMENT CHECKED AND VERIFIED. TOLERATING FEEDING WELL. LEFT UPPER ARM PICC LINE, PATENT AND INTACT AND S/S OF INFILTRATION OR INFECTION NOTED. BEVERLY CATHETER INTACT, DRAINING YELLOW URINE OUT PUT. BED LOCKED AND IN LOWEST POSITION. SIDE RAILS UP X2. ALL SAFETY MEASUREMENTS ARE IMPLEMENTED PER HOSPITAL POLICY. CALL LIGHT WITHIN REACH. WILL CONTINUE TO MONITOR.
[2020-07-30 08:00] VITALS: BP 138/81
--- NOTE | 2020-07-30 08:00 | NUR ---
RN NOTES RELEASED SOFT RESTRAINS AND ADMINISTERED ATIVAN LESS RESTRICTIVE METHOD
[2020-07-30] MEDS: GABAPENTIN 300 MG CAPSULE GT SCH ×2 (08:30→13:16)
[2020-07-30] MEDS: BENZTROPINE MESYLATE (1 MG) 1 MG TABLET GT SCH (08:30)
[2020-07-30] MEDS: LORAZEPAM INJ 2 MG/ML VIAL IV PRN (08:30)
[2020-07-30] MEDS: busPIRone 5 MG TABLET GT SCH ×2 (08:30→13:16)
[2020-07-30] MEDS: PANTOPRAZOLE 40 MG/PACK PACK GT SCH (08:30)
[2020-07-30] MEDS: NEOMY SULF/BACITRAC ZN/POLY 15 GM TUBE TP SCH (08:31)
[2020-07-30] MEDS: VITAMINS A AND D 56.7 GM TUBE TP SCH (08:32)
[2020-07-30] MEDS: PROSOURCE / PROSTAT (PYXIS) 30 ML UDC GT SCH (08:38)
--- NOTE | 2020-07-30 11:16 | NUR ---
RN NOTES DC ORDERED. DC OF PICC LINE, TOOK PIX, REMOVED BEVERLY
--- NOTE | 2020-07-30 12:00 | NUR ---
RN NOTES GAVE REPORT TO FRANDY IN [facility] AND ADMINISTERED PNEUMOCOCCAL , INFLUENZA WAS ADMINISTERED ON 07/05/2020 ALSO MENTIONED FOLLOW UP WITH HEMOTOLOGIST AND ONCOLOGIST DR PRATHER AND GAVE OFFICE PHONE NUMBER
[2020-07-30] MEDS ORDERED: PNEUMOCOCCAL 23-VAL P-SAC VAC 0.5 ML VIAL SQ ONE (13:00)
[2020-07-30] MEDS: DIGOXIN 0.125 MG TABLET GT SCH (13:16)
--- NOTE | 2020-07-30 13:30 | NUR ---
RN NOTES AMBULANCE IS HERE, DC BEVERLY ,DC PICC LINE ,TOOK PIX , VS WNL, DC WITH [facility] PROTOCOL.PT IS IN STABLE CONDITION
== END 2020-07-30 13:55 | DRG 177 ==
LOC: ER 18:34 → TELE2 22:02 → TELE 07-12 15:58 → ICU 07-13 05:00 → MEDSG1 07-17 18:04 → TELE1 07-27 12:22 → MEDSG1 07-28 07:42
PROVIDERS: ADMIT Nurse Practitioner Acute Care
PROC: 06H03DZ Insertion of Intraluminal Device into Inferior Vena Cava, Percutaneous Approach (ICD-10-PCS; principal; 2020-07-16)
PROC: 02HV33Z Insertion of Infusion Device into Superior Vena Cava, Percutaneous Approach (ICD-10-PCS; 2020-07-19)
PROC: B548ZZA Ultrasonography of Superior Vena Cava, Guidance (ICD-10-PCS; 2020-07-19)
PROC: 02HV33Z Insertion of Infusion Device into Superior Vena Cava, Percutaneous Approach (ICD-10-PCS; 2020-07-22)
PROC: B548ZZA Ultrasonography of Superior Vena Cava, Guidance (ICD-10-PCS; 2020-07-22)
PROC: 30233R1 Transfusion of Nonautologous Platelets into Peripheral Vein, Percutaneous Approach (ICD-10-PCS; 2020-07-24)
PROC: 30233N1 Transfusion of Nonautologous Red Blood Cells into Peripheral Vein, Percutaneous Approach (ICD-10-PCS; 2020-07-25)
DX: J69.0 Pneumonitis due to inhalation of food and vomit (principal); J96.01 Acute respiratory failure with hypoxia; N17.0 Acute kidney failure with tubular necrosis; I26.99 Other pulmonary embolism without acute cor pulmonale; I82.403 Acute embolism and thrombosis of unspecified deep veins of lower extremity, bilateral; I48.20 Chronic atrial fibrillation, unspecified; E44.1 Mild protein-calorie malnutrition; G93.40 Encephalopathy, unspecified; I50.32 Chronic diastolic (congestive) heart failure; K81.0 Acute cholecystitis; D69.6 Thrombocytopenia, unspecified; Z93.1 Gastrostomy status; G20 Parkinson's disease; F02.80 Dementia in other diseases classified elsewhere, unspecified severity, without behavioral disturbance, psychotic disturbance, mood disturbance, and anxiety; I11.0 Hypertensive heart disease with heart failure; G90.8 Other disorders of autonomic nervous system; E83.39 Other disorders of phosphorus metabolism; C44.311 Basal cell carcinoma of skin of nose; D47.2 Monoclonal gammopathy; E11.621 Type 2 diabetes mellitus with foot ulcer; E87.6 Hypokalemia; G89.29 Other chronic pain; I25.10 Atherosclerotic heart disease of native coronary artery without angina pectoris; M17.12 Unilateral primary osteoarthritis, left knee; R13.10 Dysphagia, unspecified; L85.3 Xerosis cutis; D64.9 Anemia, unspecified; Z90.49 Acquired absence of other specified parts of digestive tract; M62.50 Muscle wasting and atrophy, not elsewhere classified, unspecified site; S01.81XA Laceration without foreign body of other part of head, initial encounter; X58.XXXA Exposure to other specified factors, initial encounter; Y93.9 Activity, unspecified; L97.529 Non-pressure chronic ulcer of other part of left foot with unspecified severity; W19.XXXA Unspecified fall, initial encounter; R90.89 Other abnormal findings on diagnostic imaging of central nervous system; E11.40 Type 2 diabetes mellitus with diabetic neuropathy, unspecified; L89.156 Pressure-induced deep tissue damage of sacral region; Z79.82 Long term (current) use of aspirin; I25.2 Old myocardial infarction; F20.9 Schizophrenia, unspecified; Y92.129 Unspecified place in nursing home as the place of occurrence of the external cause; Z68.21 Body mass index [BMI] 21.0-21.9, adult; E86.0 Dehydration
CPT/HCPCS: 31720; 36415; 36569; 36600; 70450-TC; 71045-TC; 71046; 71250-TC; 72125-TC; 74018; 76770-TC; 77075-TC; 78226; 80048-TC; 80053-TC; 80061-TC; 80076-TC; 80162-TC; 80202-TC; 81001; 82232; 82272-TC; 82533; 82550-TC; 82570-TC; 82728-TC; 82784; 82803-TC; 83540-TC; 83735-TC; 83970; 84100-TC; 84155; 84155-TC; 84165; 84300-TC; 84439-TC; 84443-TC; 84484-TC; 85025-TC; 85027-TC; 85385-TC; 85610-TC; 85730-TC; 86334; 86850-TC; 87040-TC; 87081-TC; 87086-TC; 90732; 93970-TC; 94760-TC; 94762-TC; 94799-TC; 97112-TC; 97530-TC; A9537; C1751; C1769; C1880; C9113; G0378; J0282; J0690; J1160; J1644; J1650; J1940; J2060; J2185; J2250; J2270; J2370; J2543; J3370; J3480; J3490; J7030; J7040; J7050; J7060; P9016-BL; P9034-BL; Q9963; Q9967; U0003

== ENCOUNTER 2020-08-03 13:54 | Emergency (ER) | payer MEDICARE, BC, OTHER ==
[~2020-08-03] VITALS: Ht 175.3 cm; Wt 65.8 kg
--- NOTE | 2020-08-03 14:00 | NUR ---
CARLOS Pendleton FROM [facility] C/O MORE ALTERED THAN USUAL " PER RN AT SNF PT HAD NON VERBAL EPISODE 1 HOUR AGO AND JUST STARING". VS CHECKED. IV ACCESS STARTED. BLOOD DRAW DONE.
[2020-08-03] MEDS ORDERED: IV NS 0.9% 1,000 ML BAG IV ONE (14:30)
[2020-08-03] MEDS ORDERED: LACT-209 GT (14:32)
--- NOTE | 2020-08-03 14:36 | NUR ---
urine collected sent to lab
[2020-08-03 14:45] LABS: BASOPHILS # (AUTO) 0.1 /CMM (0.0-0.2); EOSINOPHILS % (AUTO) 0.1 % (0.0-6.0); HEMATOCRIT 32 % (39-51); HEMOGLOBIN 10.2 g/dL (13.5-17.5); LYMPHOCYTES # (AUTO) 1.9 /CMM (0.8-4.8); LYMPHOCYTES % (AUTO) 26.6 % (20.0-44.0); MEAN CORPUSCULAR HGB CONC 32 g/dl (31.0-36.0); MEAN CORPUSCULAR VOLUME 90 fL (80-96); MONOCYTES # (AUTO) 0.4 /CMM (0.1-1.30); MONOCYTES % (AUTO) 5.9 % (2.0-12.0); NEUTROPHILS # (AUTO) 4.8 /CMM (1.8-8.9); NEUTROPHILS % (AUTO) 66.4 % (43.0-81.0); PLATELET COUNT (AUTO) 158 /CMM (150-450); RED BLOOD CELL COUNT(AUTO) 3.54 MIL/uL (4.5-6.0); WHITE BLOOD COUNT (AUTO) 7.2 K/uL (4.3-11.0)
[2020-08-03 14:51] LABS: BILIRUBIN,URINE Negative (NEGATIVE); BLOOD, URINE Negative Ery/uL (NEGATIVE); COLOR,URINE YELLOW (YELLOW); LEUKOCYTE ESTERASE ,URINE Negative (NEGATIVE); NITRITE, URINE Negative (NEGATIVE); PROTEIN,URINE Negative (NEGATIVE); UGLUCOSE Negative (NEGATIVE); UROBILINOGEN,URINE 0.2 EU/dL (0.2)
[2020-08-03 14:59] LABS: BILIRUBIN,DIRECT 0.4 mg/dL (0.0-0.2); BILIRUBIN,TOTAL 0.5 mg/dL (0.2-1.0); CALCIUM, SERUM 9.2 mg/dL (8.5-10.1); CREATININE 0.6 mg/dL (0.6-1.3)
--- NOTE | 2020-08-03 17:11 | NUR ---
report given to kylie hidalgo at [facility]
--- NOTE | 2020-08-03 17:15 | NUR ---
CALLED [facility] ETA 30 MINS TRIP #[id number] CALLED ABHI GARCÍA ETA IS [phone] ANA LAURA CANCELED ABIH GARCÍA
--- NOTE | 2020-08-03 18:05 | NUR ---
Patient discharged to home in stable condition. Written and verbal after care instructions given to ems transport verbalizes understanding of instruction.
--- NOTE | 2020-08-03 18:05 | NUR ---
IV removed. Catheter intact and site benign. Pressure and 4x4 applied to site. No bleeding noted.
--- NOTE | 2020-08-03 18:06 | NUR ---
REPORT GIVEN TO EMS FOR PT TRANSFER BACK TO [facility].
[2020-08-03 18:07] VITALS: BP 133/83
== END 2020-08-03 18:13 ==
LOC: ER 13:55
DX: R41.82 Altered mental status, unspecified (principal); F03.90 Unspecified dementia, unspecified severity, without behavioral disturbance, psychotic disturbance, mood disturbance, and anxiety; I11.0 Hypertensive heart disease with heart failure; I50.9 Heart failure, unspecified; E11.9 Type 2 diabetes mellitus without complications; M19.90 Unspecified osteoarthritis, unspecified site; Z98.890 Other specified postprocedural states; Z79.899 Other long term (current) drug therapy; Z79.82 Long term (current) use of aspirin
CPT/HCPCS: 36415; 70450; 71045; 80048; 80076; 80307; 81001; 84484; 85025; 85730; 93005; 96360; 99285; J7030